=== PATIENT | male | born 1985 | race Caucasian/White ===

== ENCOUNTER 2022-02-12 09:06 | Oncology outpatient (recurring) (ONCR) | payer BC, SELFPAY ==
--- NOTE | 2022-01-28 10:12 | N.ONRAD NP_ITS ---
Radiation Oncology Consultation Patient Name: Gautam Elise Date of : 1985 Date of Service: 01/28/2022 Attending Physician: Misael Wilson M.D. Gautam Elise was seen in consultation this afternoon at the request of Dennis Barrios M.D. for evaluation regarding post-operative radiotherapy for the management of a recently diagnosed tongue cancer. The patient was evaluated by Russell Fonseca M.D. at [facility] for a right tongue lesion in November. The examination described an ulcerated lesion of the right aspect of the mobile tongue and palpable right cervical lymph nodes. An MRI of the head and neck obtained on November 17, 2021 reported a 2.7 cm x 1.5 cm x 3.1 cm mass within the right anterolateral aspect of the oral tongue, lateral level II lymph nodes, and a necrotic right level III lymph node. A biopsy of the tongue lesion diagnosed a squamous cell carcinoma. He was referred to [facility] Department of Otolaryngology for further management. A PET scan ordered on December 16, 2021 demonstrated FDG activity in the right lingual region, right anterior mandible, a 1.3 cm right submandibular node (SUV 9.5), and a right level V lymph node measuring 1.6 cm (SUV 10.4). There was no systemic, metastatic disease. A right partial glossectomy with bilateral neck dissection, left ALT flap, and tracheostomy was performed on December 23, 2021 by Dennis Barrios M.D. The pathology report (requested from the outside hospital and personally reviewed in [facility]) documented a 4.5 cm, invasive, grade 2, keratinizing, squamous cell carcinoma with a depth of invasion of 2.1 mm. All surgical margins were negative (anteromedial margin was less than 1 mm). Perineural invasion was identified. A total of 31 lymph nodes were harvested. Metastatic disease was present in two right level II lymph nodes, two of the right level III lymph nodes, and two within the right level IV lymph nodes. The largest lymph node measured 3.5 cm with extranodal extension present (right level IV). Extranodal extension was also displayed in the 2.5 cm right level II lymph node. He was evaluated for post-operative radiotherapy. I discussed with Mr. Elise the [place] [employer]aging for oral cancer and the patient's pathological stage IVB (T4aN3b) specific to his diagnosis. I reviewed The National Comprehensive Cancer Network Guidelines for adjuvant chemoradiotherapy in patients with newly resected tumors and adverse features (i.e. positive margins or extranodal extension). I also summarized the classic studies - the EORTC 54887 and RTOG 9501 trials - that established this recommendation. The EORTC investigation demonstrated an overall survival advantage and improved locoregional control in the combined modality arm, while the RTOG study documented improved disease-free survival and locoregional control in a subgroup of patients with positive margins and extranodal extension. I have requested a dental evaluation. I would endorse a 6 1/2-week course of radiation therapy. Prior to beginning treatment, a radiotherapy planning CT scan with contrast will be acquired to delineate the clinical target volumes. I I reviewed the potential toxicities of head and neck radiotherapy. The patient has verbalized understanding and would like to proceed as advocated. Patient's medical case was discussed with Swapnil Jerome M.D. Signed by: Dr. Misael Wilson 01/28/2022 10:10:58 AM
--- NOTE | 2022-02-02 | CT_ITS ---
Radiation Therapy Planning CT images; total exam DLP: 711.85 mGy-cm MTDD
--- NOTE | 2022-02-02 14:26 | ONCRAD EPV_ITS ---
Radiation Oncology Established Patient Visit Patient: Gautam Elise [id number] : 1985 Age: 36 Sex: Male Dictated by: Dr. Kenrick Rainey Date of Service: 02/02/2022 Referring Physician(s) : Dr. Swapnil Jerome Diagnosis: Oral cavity, anterior two thirds of the tongue, right, squamous cell carcinoma Radiotherapy to Date: None Current History: Mr. Elise is recovering well from surgery. His tracheostomy tube is out. He maintains his feeding tube, but is doing well maintaining his nutrition without using the tube. He denies difficulty swallowing. His speech is not completely clear related to the anatomic limitations of the tongue. He is not having a significant level of pain. He has swelling in the submental area. He has no complaints regarding teeth. He has no complaints in regard to his feeding tube. The graft on the floor of his mouth and tongue is numb. He denies pain in the area. Current Medications: Acetaminophen. Allergies: No Known Allergies Current Complaints / Review of Systems: . Vital Signs: Performed on 02/02/2022 1:04 PM BMI - 25.922 kg/m2 (high), Height - 66 in, Weight - 160.6 lbs, Temperature - 98.1 f, Pulse - 67 /min, Respiration - 18 /min, O2 Sat - 100 %, Pain - 0, Fatigue - 2 and BP - 121/ 76 mm(hg). Physical Exam: General: Alert and oriented x 3. No acute distress. HEENT: Normocephalic, atraumatic. He has symmetric submental edema. There is no evidence of inflammation. The surgical incision on the neck that is horseshoe shaped is well-healed. Tracheostomy site in the neck is well-healed. Oral cavity exam reveals no active lesions. The graft involving the tongue appears healthy. Laterally it has an irregular contour and slightly overlaps the lower molars. No irritation from the teeth seen. Inspection and palpation of the graft does not reveal any evidence of recurrence. There is no tenderness. No evidence of infection. Floor of mouth has no lesions. No lesions elsewhere in the oral cavity. Teeth are in good repair. NECK: Supple without supraclavicular or jugular lymphadenopathy NEUROLOGIC: Cranial nerves II ???XII are grossly intact. Normal sensation, strength 5/5 in all extremities, normal gait, no ataxia. Performance Status: ECOG 1 Lab: None pending. Pathology: Margins negative but very close anteriorly on the tongue. Multiple positive nodes in the right neck. Imaging: See HPI Impression: Locally advanced carcinoma of the tongue with deep invasion and multiple positive nodes on the right. Mr. Elise is a candidate for postoperative chemo RT. I reviewed the acute side effects of treatment. I told him he is at risk for permanent lymphedema problems. I told him he may need lymphedema therapy. Also discussed he may need physical therapy for stiffness of his neck. I discussed that he will need to see a dentist on a regular basis and exercise meticulous dental hygiene himself. Signed by: 02/02/2022 2:24:27 PM <<Signature on File>> Time spent with patient: CPT Code: CPT Code:
[2022-02-08 08:38] VITALS: BMI 26.3
[2022-02-08 08:54] LABS: Basophils % 0.7 %; Eosinophils # 0.2 10^3/uL (0.0-0.8); Hematocrit 45.1 % (42.0-52.0); Hemoglobin 14.7 g/dL (11.7-16.6); Lymphocytes # 1.3 10^3/uL (0.8-4.8); Lymphocytes % 23.7 %; Mean Corpuscular HGB Conc 32.6 g/dL (30.0-36.0); Mean Corpuscular Hemoglobin 31.6 pg (28.0-34.0); Monocytes # 0.5 10^3/uL (0.2-0.9); Monocytes % 8.3 %; Neutrophils # 3.46 10^3/uL (1.8-7.7); Neutrophils % 64.1 %; Nucleated Red Blood Cells % 0 %; Platelet Count 281 10^3/cmm (130-400); Red Blood Count 4.65 10^6/uL (4.1-5.3); Red Cell Distribution Width 11.7 % (12.1-15.1); White Blood Count 5.4 10^3/uL (4.0-10.0)
[2022-02-08 09:22] LABS: Alanine Aminotransferase 26 U/L (0-41); Albumin Level 4.4 g/dL (3.5-5.2); Alkaline Phosphatase 113 IU/L (40-130); Anion Gap 12.2 (5-19); Aspartate Amino Transferase 25 U/L (0-40); Blood Urea Nitrogen 11 mg/dL (6-20); Calcium 9.2 mg/dL (8.5-10.5); Carbon Dioxide 28 mmol/L (22-29); Chloride 104 mmol/L (98-107); Globulin 2.8 g/dL (1.3-4.6); Glomerular Filtration Rate 188.1 mL/min (90-130); Glucose 79 mg/dL (65-115); Osmolality Calculated 288 mOsm/kg (285-295); Potassium 4.2 mmol/L (3.5-5.1); Sodium 140 mmol/L (136-145); Total Bilirubin 0.2 mg/dL (0.15-1.2); Total Protein 7.2 g/dL (6.6-8.7)
[2022-02-08] MEDS: sodium chloride 0.9% 250 ML 75 ML IV (10:42)
[2022-02-08] MEDS: OLANZapine 5 mg TABLET PO (12:43)
[2022-02-08] MEDS: diphenhydrAMINE 50 mg/mL SDV 1mL 25 MG IVP ×2 (12:44→18:22)
[2022-02-08] MEDS: famotidine 20 mg/2 mL INJ IVP (12:45)
[2022-02-08] MEDS: fosaprepitant 150 MG in sodium chloride 0.9% 150 ML 300 MG IV (13:23)
[2022-02-08] MEDS: FUROsemide 10 mg/mL SDV 2mL 20 MG IVP (15:24)
[2022-02-08] MEDS: potassium chloride 20 MEQ in sodium chloride 0.9% 500 ML 325 MEQ IV (15:33)
[2022-02-08 17:12] VITALS: BP 105/73; PULSE 75; RESP 18; TEMP 35.9; O2SAT 96
[2022-02-08] MEDS: promethazine 25 mg Supp PR (17:35)
[2022-02-08] MEDS: OLANZapine 10 mg ODT PO (18:16)
[2022-02-08] MEDS: dexamethasone 10 mg/mL INJ IVP (18:20)
--- NOTE | 2022-02-09 16:17 | ONCRAD TMN_ITS ---
Radiation Oncology Weekly Treatment Management Patient: Gosia Florez MR#: [id number] : 1985 Attending Physician: Dr. Modesto Rainey Date of Service: 02/09/2022 Referring Physician(s) : Dennis Barrios M.D Diagnosis: C02.1 - Malignant neoplasm of border of tongue, Diagnosed 12/23/2021 (Active) Radiotherapy to date: Course: [facility], Treatment Site: [facility] [place], Ref. ID: [id number], Energy: 6X, Dose/Fx (cGy): 200, #Fx: 2 / 33, Dose Correction (cGy): 0, Total Dose (cGy): 400, Start Date: 02/08/2022, Elapsed Days: 1 Reason for visit: The patient is being seen today as part of their regularly scheduled weekly on treatment visits to assess for acute toxicities from radiotherapy. Review of Systems: Vital Signs: Performed on 02/09/2022 3:49 PM BMI - 25.663 kg/m2 (high), Height - 66 in, Weight - 159 lbs, Temperature - 98 f, Pulse - 85 /min, Respiration - 20 /min, O2 Sat - 100 %, Pain - 0, Fatigue - 0 and BP - 116/ 70 mm(hg). Physical Exam: Imaging: Radiation therapy imaging related to accurate target localization (i.e. KV, MV and CBCT) was reviewed. Appropriate changes, if any, were made to ensure treatment accuracy. Plan: Signed by: Dr. Modesto Rainey 02/09/2022 4:16:31 PM
== END 2022-02-14 23:59 | disposition home or self-care (01) ==
PROVIDERS: Internal Medicine Medical Oncology; PCP Nurse Practitioner; Visit Provider Specialist
DX: Z51.0 Encounter for antineoplastic radiation therapy (principal); C02.3 Malignant neoplasm of anterior two-thirds of tongue, part unspecified
CPT/HCPCS: 77334; 77386; 77470; 80053; 85025; 96366; 96367; 96375; 96413; 99205; J1100; J1200; J1453; J1940; J3475; J3480; J3490; J7030; J7040; J7050; J8498; J9060

== ENCOUNTER 2022-03-17 15:13 | Oncology outpatient (recurring) (ONCR) | payer BC, SELFPAY ==
[2022-02-15 16:10] LABS: Basophils % 0.1 %; Eosinophils % 0.6 %; Hematocrit 44.2 % (42.0-52.0); Hemoglobin 15.4 g/dL (11.7-16.6); Lymphocytes # 0.9 10^3/uL (0.8-4.8); Lymphocytes % 12.8 %; Mean Corpuscular HGB Conc 34.8 g/dL (30.0-36.0); Mean Corpuscular Volume 91.9 fl (80-94); Mean Platelet Volume 9.6 fL (7.4-10.4); Monocytes # 0.4 10^3/uL (0.2-0.9); Neutrophils # 5.72 10^3/uL (1.8-7.7); Neutrophils % 79.9 %; Nucleated Red Blood Cells % 0 %; Platelet Count 285 10^3/cmm (130-400); Red Blood Count 4.81 10^6/uL (4.1-5.3); Red Cell Distribution Width 11.1 % (12.1-15.1); White Blood Count 7.2 10^3/uL (4.0-10.0)
[2022-02-15 16:36] LABS: Alanine Aminotransferase 62 U/L (0-41); Alkaline Phosphatase 94 IU/L (40-130); Anion Gap 12.7 (5-19); Aspartate Amino Transferase 24 U/L (0-40); Blood Urea Nitrogen 12 mg/dL (6-20); Calcium 9.3 mg/dL (8.5-10.5); Carbon Dioxide 28 mmol/L (22-29); Chloride 102 mmol/L (98-107); Globulin 2.9 g/dL (1.3-4.6); Glomerular Filtration Rate 127.6 mL/min (90-130); Glucose 92 mg/dL (65-115); Osmolality Calculated 287 mOsm/kg (285-295); Potassium 3.7 mmol/L (3.5-5.1); Sodium 139 mmol/L (136-145); Total Bilirubin 0.3 mg/dL (0.15-1.2); Total Protein 6.9 g/dL (6.6-8.7)
--- NOTE | 2022-02-16 16:11 | ONCRAD TMN_ITS ---
Radiation Oncology Treatment Management Note Patient Name: Gautam Elise Date of : 1985 Date of Service: 02/16/2022 Attending Physician: Misael Wilson M.D. Gautam Elise is a 36 year old white male diagnosed with a pathological stage IVB (T4aN3b) tongue cancer. The patient was evaluated by Russell Fonseca M.D. at [facility] for a right tongue lesion in November. The examination described an ulcerated lesion of the right aspect of the mobile tongue and palpable right cervical lymph nodes. An MRI of the head and neck obtained on November 17, 2021 reported a 2.7 cm x 1.5 cm x 3.1 cm mass within the right anterolateral aspect of the oral tongue, lateral level II lymph nodes, and a necrotic right level III lymph node. A biopsy of the tongue lesion diagnosed a squamous cell carcinoma. He was referred to [facility] Department of Otolaryngology for further management. A PET scan ordered on December 16, 2021 demonstrated FDG activity in the right lingual region, right anterior mandible, a 1.3 cm right submandibular node (SUV 9.5), and a right level V lymph node measuring 1.6 cm (SUV 10.4). There was no systemic, metastatic disease. A right partial glossectomy with bilateral neck dissection, left ALT flap, and tracheostomy was performed on December 23, 2021 by Dennis Barrios M.D. The pathology report documented a 4.5 cm, invasive, grade 2 keratinizing squamous cell carcinoma with a depth of invasion of 2.1 mm. All surgical margins were negative (anteromedial margin was less than 1 mm). Perineural invasion was identified. A total of 31 lymph nodes were harvested. Metastatic disease was present in two right level II lymph nodes, two of the right level III lymph nodes, and two within the right level IV lymph nodes. The largest lymph node measured 3.5 cm with extranodal extension present (right level IV). Extranodal extension was also displayed in the 2.5 cm right level II lymph node. The patient has received 14 Gy of a prescribed 66 Pickard with an intensity modulated radiotherapy plan utilizing a step and shoot treatment technique. He has been prescribed cisplatin (100 mg/m2) every three weeks during radiotherapy. Upon review of systems, he reported mild xerostomia and ageusia. On physical examination, the patient weighed 154 lbs. His temperature was 98.4 ???F and the blood pressure was 127/83 mmHg. His pulse was 60 bpm and the respiratory rate was 18. There was no erythema within the treatment pugh. Continue post-operative head and neck radiotherapy as prescribed. Signed by: Dr. Misael Wilson 02/16/2022 4:10:53 PM
[2022-02-22 16:27] LABS: Basophils % 0.4 %; Eosinophils % 0.2 %; Hematocrit 42.3 % (42.0-52.0); Hemoglobin 14.2 g/dL (11.7-16.6); Lymphocytes # 0.5 10^3/uL (0.8-4.8); Lymphocytes % 9.7 %; Mean Corpuscular HGB Conc 33.6 g/dL (30.0-36.0); Mean Corpuscular Hemoglobin 31.1 pg (28.0-34.0); Mean Corpuscular Volume 92.6 fl (80-94); Mean Platelet Volume 9.4 fL (7.4-10.4); Monocytes # 0.4 10^3/uL (0.2-0.9); Monocytes % 8.2 %; Neutrophils # 4.33 10^3/uL (1.8-7.7); Neutrophils % 81.1 %; Nucleated Red Blood Cells % 0 %; Platelet Count 201 10^3/cmm (130-400); Red Blood Count 4.57 10^6/uL (4.1-5.3); Red Cell Distribution Width 11.2 % (12.1-15.1); White Blood Count 5.3 10^3/uL (4.0-10.0)
[2022-02-22 17:27] LABS: Alanine Aminotransferase 32 U/L (0-41); Albumin Level 4.4 g/dL (3.5-5.2); Alkaline Phosphatase 111 IU/L (40-130); Anion Gap 14.3 (5-19); Aspartate Amino Transferase 25 U/L (0-40); Blood Urea Nitrogen 13 mg/dL (6-20); Calcium 9.9 mg/dL (8.5-10.5); Carbon Dioxide 29 mmol/L (22-29); Chloride 101 mmol/L (98-107); Globulin 2.9 g/dL (1.3-4.6); Glomerular Filtration Rate 152.4 mL/min (90-130); Glucose 105 mg/dL (65-115); Osmolality Calculated 290 mOsm/kg (285-295); Potassium 4.3 mmol/L (3.5-5.1); Sodium 140 mmol/L (136-145); Total Bilirubin 0.4 mg/dL (0.15-1.2); Total Protein 7.3 g/dL (6.6-8.7)
--- NOTE | 2022-02-23 16:07 | ONCRAD TMN_ITS ---
Radiation Oncology Treatment Management Note Patient Name: Gautam Elise Date of : 1985 Date of Service: 02/23/2022 Attending Physician: Misale Wilson M.D. Gautam Elise is a 36 year old white male diagnosed with a pathological stage IVB (T4aN3b) tongue cancer. The patient was evaluated by Russell Fonseca M.D. at [facility] for a right tongue lesion in November. The examination described an ulcerated lesion of the right aspect of the mobile tongue and palpable right cervical lymph nodes. An MRI of the head and neck obtained on November 17, 2021 reported a 2.7 cm x 1.5 cm x 3.1 cm mass within the right anterolateral aspect of the oral tongue, lateral level II lymph nodes, and a necrotic right level III lymph node. A biopsy of the tongue lesion diagnosed a squamous cell carcinoma. He was referred to [facility] Department of Otolaryngology for further management. A PET scan ordered on December 16, 2021 demonstrated FDG activity in the right lingual region, right anterior mandible, a 1.3 cm right submandibular node (SUV 9.5), and a right level V lymph node measuring 1.6 cm (SUV 10.4). There was no systemic, metastatic disease. A right partial glossectomy with bilateral neck dissection, left ALT flap, and tracheostomy was performed on December 23, 2021 by Dennis Barrios M.D. The pathology report documented a 4.5 cm, invasive, grade 2 keratinizing squamous cell carcinoma with a depth of invasion of 2.1 mm. All surgical margins were negative (anteromedial margin was less than 1 mm). Perineural invasion was identified. A total of 31 lymph nodes were harvested. Metastatic disease was present in two right level II lymph nodes, two of the right level III lymph nodes, and two within the right level IV lymph nodes. The largest lymph node measured 3.5 cm with extranodal extension present (right level IV). Extranodal extension was also displayed in the 2.5 cm right level II lymph node. The patient has received 24 Gy of a prescribed 66 Pickard with an intensity modulated radiotherapy plan utilizing a step and shoot treatment technique. He has been prescribed cisplatin (100 mg/m2) every three weeks during radiotherapy. Upon review of systems, he described odynophagia and ageusia. On physical examination, the patient weighed 152 lbs. His temperature was 98.2 ???F and the blood pressure was 124/85 mmHg. His pulse was 92 bpm and the respiratory rate was 16. There was no erythema within the treatment pugh. Continue post-operative head and neck radiotherapy as planned. I will prescribe oxycodone elixir for pain. Signed by: Dr. Misael Wilson 02/23/2022 4:05:28 PM
[2022-03-01 08:41] VITALS: BMI 24.3
[2022-03-01 08:42] LABS: Basophils % 0.5 %; Eosinophils % 1.4 %; Hematocrit 41.1 % (42.0-52.0); Hemoglobin 13.7 g/dL (11.7-16.6); Lymphocytes # 0.5 10^3/uL (0.8-4.8); Lymphocytes % 21.4 %; Mean Corpuscular HGB Conc 33.3 g/dL (30.0-36.0); Mean Corpuscular Hemoglobin 31.1 pg (28.0-34.0); Mean Corpuscular Volume 93.4 fl (80-94); Mean Platelet Volume 9.3 fL (7.4-10.4); Monocytes # 0.2 10^3/uL (0.2-0.9); Monocytes % 8.8 %; Neutrophils # 1.46 10^3/uL (1.8-7.7); Neutrophils % 67.9 %; Nucleated Red Blood Cells % 0 %; Platelet Count 167 10^3/cmm (130-400); Red Cell Distribution Width 11.1 % (12.1-15.1); White Blood Count 2.2 10^3/uL (4.0-10.0)
[2022-03-01 09:13] LABS: Alanine Aminotransferase 25 U/L (0-41); Albumin Level 4.1 g/dL (3.5-5.2); Alkaline Phosphatase 99 IU/L (40-130); Anion Gap 13.9 (5-19); Aspartate Amino Transferase 24 U/L (0-40); Blood Urea Nitrogen 7 mg/dL (6-20); Calcium 9.3 mg/dL (8.5-10.5); Carbon Dioxide 28 mmol/L (22-29); Chloride 103 mmol/L (98-107); Globulin 2.8 g/dL (1.3-4.6); Glomerular Filtration Rate 152.4 mL/min (90-130); Glucose 77 mg/dL (65-115); Osmolality Calculated 289 mOsm/kg (285-295); Potassium 3.9 mmol/L (3.5-5.1); Sodium 141 mmol/L (136-145); Total Bilirubin 0.2 mg/dL (0.15-1.2); Total Protein 6.9 g/dL (6.6-8.7)
--- NOTE | 2022-03-02 16:06 | ONCRAD TMN_ITS ---
Radiation Oncology Treatment Management Note Patient Name: Gautam Elise Date of : 1985 Date of Service: 03/02/2022 Attending Physician: Misael Wilson M.D. Gautam Elise is a 36 year old white male diagnosed with a pathological stage IVB (T4aN3b) tongue cancer. The patient was evaluated by Russell Fonseca M.D. at [facility] for a right tongue lesion in November. The examination described an ulcerated lesion of the right aspect of the mobile tongue and palpable right cervical lymph nodes. An MRI of the head and neck obtained on November 17, 2021 reported a 2.7 cm x 1.5 cm x 3.1 cm mass within the right anterolateral aspect of the oral tongue, lateral level II lymph nodes, and a necrotic right level III lymph node. A biopsy of the tongue lesion diagnosed a squamous cell carcinoma. He was referred to [facility] Department of Otolaryngology for further management. A PET scan ordered on December 16, 2021 demonstrated FDG activity in the right lingual region, right anterior mandible, a 1.3 cm right submandibular node (SUV 9.5), and a right level V lymph node measuring 1.6 cm (SUV 10.4). There was no systemic, metastatic disease. A right partial glossectomy with bilateral neck dissection, left ALT flap, and tracheostomy was performed on December 23, 2021 by Dennis Barrios M.D. The pathology report documented a 4.5 cm, invasive, grade 2 keratinizing squamous cell carcinoma with a depth of invasion of 2.1 mm. All surgical margins were negative (anteromedial margin was less than 1 mm). Perineural invasion was identified. A total of 31 lymph nodes were harvested. Metastatic disease was present in two right level II lymph nodes, two of the right level III lymph nodes, and two within the right level IV lymph nodes. The largest lymph node measured 3.5 cm with extranodal extension present (right level IV). Extranodal extension was also displayed in the 2.5 cm right level II lymph node. The patient has received 34 Gy of a prescribed 66 Pickard with an intensity modulated radiotherapy plan utilizing a step and shoot treatment technique. He has been prescribed cisplatin (100 mg/m2) every three weeks during radiotherapy. Upon review of systems, he reported the odynophagia has improved with medication. On physical examination, the patient weighed 152 lbs. His temperature was 98.2 ???F and the blood pressure was 124/85 mmHg. His pulse was 92 bpm and the respiratory rate was 16. There was no erythema within the treatment pugh. Continue post-operative head and neck radiotherapy as prescribed. Signed by: Dr. Misael Wilson 03/02/2022 4:04:19 PM
[2022-03-08 08:15] VITALS: BMI 23.6
[2022-03-08 08:19] LABS: Basophils % 0.7 %; Eosinophils # 0.1 10^3/uL (0.0-0.8); Eosinophils % 2.1 %; Hematocrit 44.6 % (42.0-52.0); Hemoglobin 15.2 g/dL (11.7-16.6); Lymphocytes # 0.4 10^3/uL (0.8-4.8); Lymphocytes % 14.6 %; Mean Corpuscular HGB Conc 34.1 g/dL (30.0-36.0); Mean Corpuscular Hemoglobin 31.3 pg (28.0-34.0); Mean Corpuscular Volume 91.8 fl (80-94); Mean Platelet Volume 9.5 fL (7.4-10.4); Monocytes # 0.4 10^3/uL (0.2-0.9); Monocytes % 14.6 %; Neutrophils # 1.95 10^3/uL (1.8-7.7); Nucleated Red Blood Cells % 0 %; Platelet Count 205 10^3/cmm (130-400); Red Blood Count 4.86 10^6/uL (4.1-5.3); Red Cell Distribution Width 11.5 % (12.1-15.1); White Blood Count 2.9 10^3/uL (4.0-10.0)
[2022-03-08 08:41] LABS: Alanine Aminotransferase 29 U/L (0-41); Albumin Level 4.8 g/dL (3.5-5.2); Alkaline Phosphatase 110 U/L (40-130); Anion Gap 14.7 (5-19); Aspartate Amino Transferase 32 U/L (0-40); Blood Urea Nitrogen 14 mg/dL (6-20); Calcium 10.4 mg/dL (8.5-10.5); Carbon Dioxide 29 mmol/L (22-29); Chloride 101 mmol/L (98-107); Glomerular Filtration Rate 152.4 mL/min (90-130); Glucose 52 mg/dL (65-115); Osmolality Calculated 290 mOsm/kg (285-295); Potassium 3.7 mmol/L (3.5-5.1); Sodium 141 mmol/L (136-145); Total Bilirubin 0.3 mg/dL (0.15-1.2); Total Protein 7.8 g/dL (6.6-8.7)
[2022-03-08] MEDS: acetaminophen 325 mg Tablet 650 MG PO (09:59)
[2022-03-08] MEDS: OLANZapine 5 mg TABLET PO (09:59)
[2022-03-08] MEDS: palonosetron 0.25 mg/5 mL SDV IVP (12:25)
[2022-03-08] MEDS: famotidine 20 mg/2 mL INJ IVP (12:25)
[2022-03-08] MEDS: sodium chloride 0.9% 250 ML 75 ML IV (12:25)
[2022-03-08] MEDS: diphenhydrAMINE 50 mg/mL SDV 1mL 25 MG IVP (12:33)
[2022-03-08] MEDS: fosaprepitant 150 MG in sodium chloride 0.9% 150 ML 300 MG IV (12:34)
[2022-03-08] MEDS: FUROsemide 10 mg/mL SDV 2mL 20 MG IVP (15:27)
[2022-03-08] MEDS: potassium chloride 20 MEQ in sodium chloride 0.9% 500 ML 500 MEQ IV (15:33)
[2022-03-08 16:40] VITALS: BP 113/74; PULSE 49; RESP 16; TEMP 35.8; O2SAT 99
--- NOTE | 2022-03-09 16:03 | ONCRAD TMN_ITS ---
Radiation Oncology Treatment Management Note Patient Name: Gautam Elise Date of : 1985 Date of Service: 03/09/2022 Attending Physician: Misael Wilson M.D. Gautam Elise is a 36 year old white male diagnosed with a pathological stage IVB (T4aN3b) tongue cancer. The patient was evaluated by Russell Fonseca M.D. at [facility] for a right tongue lesion in November. The examination described an ulcerated lesion of the right aspect of the mobile tongue and palpable right cervical lymph nodes. An MRI of the head and neck obtained on November 17, 2021 reported a 2.7 cm x 1.5 cm x 3.1 cm mass within the right anterolateral aspect of the oral tongue, lateral level II lymph nodes, and a necrotic right level III lymph node. A biopsy of the tongue lesion diagnosed a squamous cell carcinoma. He was referred to [facility] Department of Otolaryngology for further management. A PET scan ordered on December 16, 2021 demonstrated FDG activity in the right lingual region, right anterior mandible, a 1.3 cm right submandibular node (SUV 9.5), and a right level V lymph node measuring 1.6 cm (SUV 10.4). There was no systemic, metastatic disease. A right partial glossectomy with bilateral neck dissection, left ALT flap, and tracheostomy was performed on December 23, 2021 by Dennis Barrios M.D. The pathology report documented a 4.5 cm, invasive, grade 2 keratinizing squamous cell carcinoma with a depth of invasion of 2.1 mm. All surgical margins were negative (anteromedial margin was less than 1 mm). Perineural invasion was identified. A total of 31 lymph nodes were harvested. Metastatic disease was present in two right level II lymph nodes, two of the right level III lymph nodes, and two within the right level IV lymph nodes. The largest lymph node measured 3.5 cm with extranodal extension present (right level IV). Extranodal extension was also displayed in the 2.5 cm right level II lymph node. The patient has received 44 Gy of a prescribed 66 Pickard with an intensity modulated radiotherapy plan utilizing a step and shoot treatment technique. He has been prescribed cisplatin (100 mg/m2) every three weeks during radiotherapy. Upon review of systems, he denied any new complaints. On physical examination, the patient weighed 148 lbs. His temperature was 98.5 ???F and the blood pressure was 108/64 mmHg. His pulse was 73 bpm and the respiratory rate was 16. There was no erythema within the treatment pugh. Continue post-operative head and neck radiotherapy as planned. Begin PEG tube feedings. Signed by: Dr. Misael Wilson 03/09/2022 4:02:19 PM
[2022-03-15] MEDS: sodium chloride 0.9% 500 ML 999 ML IV (15:54)
[2022-03-15 16:08] LABS: Basophils % 0.7 %; Hematocrit 44.6 % (42.0-52.0); Hemoglobin 15.3 g/dL (11.7-16.6); Lymphocytes # 0.3 10^3/uL (0.8-4.8); Lymphocytes % 6.5 %; Mean Corpuscular HGB Conc 34.3 g/dL (30.0-36.0); Mean Corpuscular Volume 90.5 fl (80-94); Mean Platelet Volume 10.4 fL (7.4-10.4); Monocytes # 0.4 10^3/uL (0.2-0.9); Monocytes % 8.4 %; Neutrophils % 84.2 %; Nucleated Red Blood Cells % 0 %; Platelet Count 190 10^3/cmm (130-400); Red Blood Count 4.93 10^6/uL (4.1-5.3); Red Cell Distribution Width 11.5 % (12.1-15.1); White Blood Count 4.2 10^3/uL (4.0-10.0)
[2022-03-15 16:36] VITALS: BP 111/69; PULSE 54; RESP 16; TEMP 36.4; O2SAT 100
[2022-03-15 18:11] LABS: Alanine Aminotransferase 37 U/L (0-41); Albumin Level 4.2 g/dL (3.5-5.2); Alkaline Phosphatase 91 U/L (40-130); Anion Gap 15.4 (5-19); Aspartate Amino Transferase 23 U/L (0-40); Blood Urea Nitrogen 18 mg/dL (6-20); Calcium 9.2 mg/dL (8.5-10.5); Carbon Dioxide 28 mmol/L (22-29); Chloride 99 mmol/L (98-107); Globulin 2.4 g/dL (1.3-4.6); Glomerular Filtration Rate 127.6 mL/min (90-130); Glucose 91 mg/dL (65-115); Osmolality Calculated 287 mOsm/kg (285-295); Potassium 4.4 mmol/L (3.5-5.1); Sodium 138 mmol/L (136-145); Total Bilirubin 0.3 mg/dL (0.15-1.2); Total Protein 6.6 g/dL (6.6-8.7)
[2022-03-16 15:21] VITALS: BP 117/74; PULSE 55; RESP 16; TEMP 36.3; O2SAT 98
[2022-03-16] MEDS: sodium chloride 0.9% 500 ML 999 ML IV (15:25)
[2022-03-16] MEDS: ondansetron 2 mg/ML SDV 2 mL 8 MG IV (15:26)
--- NOTE | 2022-03-16 16:08 | ONCRAD TMN_ITS ---
Radiation Oncology Weekly Treatment Management Patient: Gosia Hyatt MR#: [id number] : 1985> Attending Physician: Dr. Modesto Rainey Date of Service: 03/16/2022 Referring Physician(s) : Dr. Swapnil Jerome Diagnosis: C02.1 - Malignant neoplasm of border of tongue, Diagnosed 12/23/2021 (Active) Radiotherapy to date: Course: [facility], Treatment Site: [facility], Ref. ID: [id number], Energy: 6X, Dose/Fx (cGy): 200, #Fx: / , Dose Correction (cGy): 0, Total Dose (cGy): 5,400, Start Date: 02/08/2022, Elapsed Days: 36 Reason for visit: The patient is being seen today as part of their regularly scheduled weekly on treatment visits to assess for acute toxicities from radiotherapy. Review of Systems: He has had 27 and 33 treatments. He has had 2 cycles of high-dose cisplatin, which she has tolerated moderately well. He is receiving IV fluids and medications today. He has a good performance status. Voice quality is good. He has minimal oral cavity pain. Taste is bad for everything. He states that dry mouth has been minimal so far. He is using of the feeding tube more because of the loss of taste. However he is still taking fluids and medication by mouth. Vital Signs: Physical Exam: Alert, oriented, no distress. He has moderate mucositis in the oral cavity. No yeast or viral ulcerations. Dentition stable. Neck is free of lymphadenopathy. He has a moderate skin reaction over the right lower neck. Imaging: Radiation therapy imaging related to accurate target localization (i.e. KV, MV and CBCT) was reviewed. Appropriate changes, if any, were made to ensure treatment accuracy. Plan: Continue treatment per plan. Discussed that he needs to continue swallowing liquids over the short-term so that his swallowing mechanism remains intact. Discussed that he will need to see his dentist within 2 to 3 months of finishing radiation. Discussed the timing of resolution of mucositis, loss of taste, and xerostomia. Signed by: Dr. Modesto Rainey 03/16/2022 4:06:53 PM
== END 2022-03-17 23:59 | disposition home or self-care (01) ==
PROVIDERS: Internal Medicine Medical Oncology; Radiology Radiation Oncology; PCP Nurse Practitioner; Visit Provider Specialist
DX: Z51.0 Encounter for antineoplastic radiation therapy (principal); C02.3 Malignant neoplasm of anterior two-thirds of tongue, part unspecified
CPT/HCPCS: 36415; 77336; 77386; 80053; 85025; 96365; 96366; 96367; 96375; 96413; 96415; J1100; J1200; J1453; J1940; J2405; J2469; J3475; J3480; J3490; J7030; J7040; J7050; J9060

== ENCOUNTER 2022-03-30 08:00 | Oncology outpatient (recurring) (ONCR) | payer BC, SELFPAY ==
--- NOTE | 2022-03-23 15:28 | ONCRAD TMN_ITS ---
Radiation Oncology Treatment Management Note Patient Name: Gautam Elise Date of : 1985 Date of Service: 03/23/2022 Attending Physician: Misael Wilson M.D. Gautam Elise is a 36 year old white male diagnosed with a pathological stage IVB (T4aN3b) tongue cancer. The patient was evaluated by Russell Fonseca M.D. at [facility] for a right tongue lesion in November. The examination described an ulcerated lesion of the right aspect of the mobile tongue and palpable right cervical lymph nodes. An MRI of the head and neck obtained on November 17, 2021 reported a 2.7 cm x 1.5 cm x 3.1 cm mass within the right anterolateral aspect of the oral tongue, lateral level II lymph nodes, and a necrotic right level III lymph node. A biopsy of the tongue lesion diagnosed a squamous cell carcinoma. He was referred to [facility] Department of Otolaryngology for further management. A PET scan ordered on December 16, 2021 demonstrated FDG activity in the right lingual region, right anterior mandible, a 1.3 cm right submandibular node (SUV 9.5), and a right level V lymph node measuring 1.6 cm (SUV 10.4). There was no systemic, metastatic disease. A right partial glossectomy with bilateral neck dissection, left ALT flap, and tracheostomy was performed on December 23, 2021 by Dennis Barrios M.D. The pathology report documented a 4.5 cm, invasive, grade 2 keratinizing squamous cell carcinoma with a depth of invasion of 2.1 mm. All surgical margins were negative (anteromedial margin was less than 1 mm). Perineural invasion was identified. A total of 31 lymph nodes were harvested. Metastatic disease was present in two right level II lymph nodes, two of the right level III lymph nodes, and two within the right level IV lymph nodes. The largest lymph node measured 3.5 cm with extranodal extension present (right level IV). Extranodal extension was also displayed in the 2.5 cm right level II lymph node. The patient has received 60 Gy of a prescribed 66 Pickard with an intensity modulated radiotherapy plan utilizing a step and shoot treatment technique. He has been prescribed cisplatin (100 mg/m2) every three weeks during radiotherapy. Upon review of systems, he continues to describe dysgeusia. On physical examination, the patient weighed 148 lbs. His temperature was 98.5 ???F and the blood pressure was 108/64 mmHg. His pulse was 73 bpm and the respiratory rate was 16. There was no erythema within the treatment pugh. Continue post-operative head and neck radiotherapy as prescribed. Signed by: Dr. Misael Wilson 03/23/2022 3:27:29 PM
--- NOTE | 2022-03-23 15:30 | ONCRAD TMN_ITS ---
Radiation Oncology Treatment Management Note Patient Name: Gautam Elise Date of : 1985 Date of Service: 03/23/2022 Attending Physician: Misael Wilson M.D. Gautam Elise is a 36 year old white male diagnosed with a pathological stage IVB (T4aN3b) tongue cancer. The patient was evaluated by Russell Fonseca M.D. at [facility] for a right tongue lesion in November. The examination described an ulcerated lesion of the right aspect of the mobile tongue and palpable right cervical lymph nodes. An MRI of the head and neck obtained on November 17, 2021 reported a 2.7 cm x 1.5 cm x 3.1 cm mass within the right anterolateral aspect of the oral tongue, lateral level II lymph nodes, and a necrotic right level III lymph node. A biopsy of the tongue lesion diagnosed a squamous cell carcinoma. He was referred to [facility] Department of Otolaryngology for further management. A PET scan ordered on December 16, 2021 demonstrated FDG activity in the right lingual region, right anterior mandible, a 1.3 cm right submandibular node (SUV 9.5), and a right level V lymph node measuring 1.6 cm (SUV 10.4). There was no systemic, metastatic disease. A right partial glossectomy with bilateral neck dissection, left ALT flap, and tracheostomy was performed on December 23, 2021 by Dennis Barrios M.D. The pathology report documented a 4.5 cm, invasive, grade 2 keratinizing squamous cell carcinoma with a depth of invasion of 2.1 mm. All surgical margins were negative (anteromedial margin was less than 1 mm). Perineural invasion was identified. A total of 31 lymph nodes were harvested. Metastatic disease was present in two right level II lymph nodes, two of the right level III lymph nodes, and two within the right level IV lymph nodes. The largest lymph node measured 3.5 cm with extranodal extension present (right level IV). Extranodal extension was also displayed in the 2.5 cm right level II lymph node. The patient has received 60 Gy of a prescribed 66 Pickard with an intensity modulated radiotherapy plan utilizing a step and shoot treatment technique. He has been prescribed cisplatin (100 mg/m2) every three weeks during radiotherapy. Upon review of systems, he continues to describe dysgeusia. On physical examination, the patient weighed 141 lbs. His temperature was 97.1 ???F and the blood pressure was 114/78 mmHg. His pulse was 55 bpm and the respiratory rate was 16. There was minimal erythema within the treatment pugh. Continue post-operative head and neck radiotherapy as prescribed. Signed by: Dr. Misael Wilson 03/23/2022 3:29:00 PM
--- NOTE | 2022-03-26 08:46 | N.ONRD TS_ITS ---
Radiation OncologyTreatment Summary Patient Name: Gautam Elise Date of : 1985 Date of Service: 03/26/2022 Attending Physician: Misael Wilson M.D. Gautam Elise has completed postoperative head and neck radiotherapy for the management of a pathological stage IVB (T4aN3b) tongue cancer. The patient was evaluated by Russell Fonseca M.D. at [facility] for a right tongue lesion in November. The examination described an ulcerated lesion of the right aspect of the mobile tongue and palpable right cervical lymph nodes. An MRI of the head and neck obtained on November 17, 2021 reported a 2.7 cm x 1.5 cm x 3.1 cm mass within the right anterolateral aspect of the oral tongue, lateral level II lymph nodes, and a necrotic right level III lymph node. A biopsy of the tongue lesion diagnosed a squamous cell carcinoma. He was referred to [facility] Department of Otolaryngology for further management. A PET scan ordered on December 16, 2021 demonstrated FDG activity in the right lingual region, right anterior mandible, a 1.3 cm right submandibular node (SUV 9.5), and a right level V lymph node measuring 1.6 cm (SUV 10.4). There was no systemic, metastatic disease. A right partial glossectomy with bilateral neck dissection, left ALT flap, and tracheostomy was performed on December 23, 2021 by Dennis Barrios M.D. The pathology report documented a 4.5 cm, invasive, grade 2 keratinizing squamous cell carcinoma with a depth of invasion of 2.1 mm. All surgical margins were negative (anteromedial margin was less than 1 mm). Perineural invasion was identified. A total of 31 lymph nodes were harvested. Metastatic disease was present in two right level II lymph nodes, two of the right level III lymph nodes, and two within the right level IV lymph nodes. The largest lymph node measured 3.5 cm with extranodal extension present (right level IV). Extranodal extension was also displayed in the 2.5 cm right level II lymph node. Head and neck radiation therapy was delivered between the dates of February 08, 2022 through March 26, 2022. A prescribed dose of 66 Gy was delivered in 33 fractions encompassing 47 elapsed days. The postoperative bed and bilateral cervical lymph node stations were treated utilizing an intensity modulated radiotherapy plan with a step and shoot treatment technique. The plan required nine gantry angles (0???, 41???, 82???, 123???, 164???, 196???, 237???, 278???, and 319???) replicating a an arc. The collimator angle was 0???. The field sizes spanned 16.8 cm x 16.8 cm to 20.8 cm x 17.5 cm. The SSDs measured a minimum of 88.3 cm to a maximum of 95.6 cm. The ports delivered 280 MU, 219 MU, 215 MU, 204 MU, 222 MU, 209 MU, 189 MU, 212 MU, and 290 MU corresponding to the gantry angles described. Low energy photons were prescribed. All treatments were performed with the Toutiao linear accelerator and an isocentric technique. The dose was calculated by Anisotropic Analytic Algorithm with the plan normalized to deliver 100% of the prescription dose to 95% of the planning target volume. He was prescribed cisplatin (100 mg/m2) every three weeks during radiotherapy (February 08 through March 08) under the supervision of Swapnil Jerome M.D. The plan was designed and approved by the [facility] physician. Signed by: Dr. Misael Wilson 03/26/2022 8:46:20 AM
== END 2022-04-16 23:59 | disposition home or self-care (01) ==
PROVIDERS: PCP Nurse Practitioner; Visit Provider Radiology Radiation Oncology
DX: Z53.9 Procedure and treatment not carried out, unspecified reason (principal)
CPT/HCPCS: 77336; 77386

== ENCOUNTER 2022-08-12 08:01 | Day surgery (SDC) | payer BC, SELFPAY ==
[2022-08-10 11:24] VITALS: BMI 24.5
[2022-08-12] VITALS (8 sets, daily range): BP systolic 118–134; BP diastolic 85–95; PULSE 67–107; RESP 16–18; TEMP 36.1–36.9; O2SAT 96–98
[2022-08-12] MEDS: sodium chloride 0.9% 1,000 ML 30 ML IV (08:40)
--- NOTE | 2022-08-12 09:20 | P.ANESASSM_ITS ---
Pre-Anesthetic Assessment Height/Weight: Height 1.68 m Weight 68.946 kg Temp Pulse Resp BP Pulse Ox O2 Del Method 97 F L 67 18 125/90 97 08/12/22 08:29 08/12/22 08:29 08/12/22 08:29 08/12/22 08:29 08/12/22 08:29 08/12/22 08:29 Operation Date: 08/12/22 10:00 Proposed Procedures p Portacath Placement 67259,C02.3(Not Applicable) - Mauri Silvestre DO Familial anesthetic complications: None Was Beta Cristo taken within 24 hours: N/A Was Clonidine taken within 24 hours: N/A Last intake: Intake Last Liquid Date 08/11/22 Last Liquid Time 20:00 Last Solid Date 08/11/22 Last Solid Time 19:00 Social No alcohol and No tobacco hx chewing tobacco Exam alert, oriented x 3, clear to auscultation bilaterally and regular rate & rhythm Airway Mallampati: Class IV Dentition: other ( missing) Comments: Comments: Denies any residual mass effect, able to lay flat without signs of airway obstruction Hx R glossectomy and neck dissection w/ tracheostomy last year Anesthetic Plan ASA status: 3 Anesthesia: MAC Risk of > 500 ml blood loss (7ml/kg in children): No Medications/Allergies Home Medications Medication Instructions Recorded Confirmed Last Taken Type acetaminophen 500 mg tablet 500 mg PO DAILY PRN pain 01/28/22 08/12/22 1 Day Ago History (Tylenol Extra Strength) ~08/11/22 alprazolam 0.5 mg tablet (Xanax) 0.5 mg PO BID PRN anxiety #60 tabs 07/15/22 08/12/22 1 Day Ago Rx ~08/11/22 Allergies Allergy/AdvReac Type Severity Reaction Status Date / Time No Known Allergies Allergy Verified 08/12/22 08:23 [facility] Anesthesia Medical History Primary tongue squamous cell carcinoma Surgical History Hx of neck surgery (12/24/21) Bilateral neck exploration Status post insertion of percutaneous endoscopic gastrostomy (PEG) tube Status post partial glossectomy (12/23/21) Partial glossectomy with bilateral neck dissection, left ALT flap, and tra cheostomy Family History Grandfather Throat cancer Cancer Family/Other Cancer Maternal aunt Denies family history of Diabetes CAD (coronary artery disease) Clotting disorder Dementia Hyperlipidemia Psychiatric illness Chronic kidney disease (CKD) Suicide Anesthesia complication Bleeding disorder Lung disease Hypertension Stroke Social History Smoking and tobacco status: never smoked Alcohol intake: never Household members: spouse and children Marital status: Number of children: 2 Current occupational status: employed Current occupation: construction Current gender identity: Male Data Anesthesia Cardiac Studies: No Data to Display
--- NOTE | 2022-08-12 09:46 | W.PM.OPSUD ---
Surgery/Procedure H&P Update DATE OF PROCEDURE: August 12, 2022 DATE H&P PERFORMED: 08/06/22 PLANNED PROCEDURE: Operation Date: 08/12/22 10:00 Proposed Procedures p Portacath Placement 16163,C02.3(Not Applicable) - Mauri Silvestre DO
--- NOTE | 2022-08-12 10:14 | XR_ITS ---
WS: [id number] Exam: XR chest 1V portable [id number] Date/Time of Exam: 08/12/2022 10:14 AM Reason For Exam: Post op mediport placement A single limited anterior-posterior C-arm image of the left chest is submitted for evaluation. A left subclavian port has been placed and appears to end in the lower one third of the SVC in good p osition. The visualized left lung appears to be fully expanded.
--- NOTE | 2022-08-12 10:14 | SC_ITS ---
WS: [id number] Exam: XR chest 1V portable [id number] Date/Time of Exam: 08/12/2022 11:14 AM Reason For Exam: s/p mediport The lungs are fully expanded. Cardiomediastinal silhouette is unremarkable. A left subclavian port en ds at the cavoatrial junction. Reticular nodular pulmonary pattern noted bilaterally which is nonspec ific. No consolidated infiltrates. Surgical clips in the right and left neck. SC/C-arm FL for CVA [id number] IMPRESSION: 1. Left subclavian port ending at the cavoatrial junction. 2. Reticular nodular pattern throughout both lungs. 3. No consolidated infiltrates.
[2022-08-12] MEDS: ceFAZolin 2,000 MG in sodium chloride 0.9% (plus) 50 ML 100 MG IV (10:29)
[2022-08-12] MEDS: heparin, porcine 1,000 unit/mL INJ 10 mL 10000 UNIT INJECTION (10:53)
[2022-08-12] MEDS: sodium chloride 0.9% 250 mL Bag 100 ML XX (10:54)
--- NOTE | 2022-08-12 11:14 | XR_ITS ---
WS: [id number] Exam: XR chest 1V portable [id number] Date/Time of Exam: 08/12/2022 11:14 AM Reason For Exam: s/p mediport The lungs are fully expanded. Cardiomediastinal silhouette is unremarkable. A left subclavian port en ds at the cavoatrial junction. Reticular nodular pulmonary pattern noted bilaterally which is nonspec ific. No consolidated infiltrates. Surgical clips in the right and left neck. XR/XR chest 1V portable [id number] IMPRESSION: 1. Left subclavian port ending at the cavoatrial junction. 2. Reticular nodular pattern throughout both lungs. 3. No consolidated infiltrates.
--- NOTE | 2022-08-12 11:15 | P.OP_ITS ---
Operative Report Date of procedure: August 12, 2022 Pre-op diagnosis: Preop Diagnosis Tongue Cancer Post-op diagnosis: same Procedure done: Mediport placement Implants: PowerPort Specimens removed/disposition: None Surgeon: Dr. Mauri Silvestre DO Anesthesia: General Estimated blood loss (mL): 5 Complications: None apparent Brief History: This very pleasant 36-year-old gentleman with tongue cancer who requires chemotherapy. Mediport placement is indicated. The risks and benefits were explained and documented. Procedure: They put another order I will do right now things the patient was taken to the operating room and placed supine on the operating room table. All bony prominences were padded. She was given IV sedation and monitored throughout the case by the anesthesia personnel. SCDs were placed and turned on. The arms were tucked to the side. Patient received Ancef 2 g preoperatively IV. The bilateral chest wall was prepped and draped in usual sterile fashion using chlorhexidine base prep. Sterile drapes were applied. We did procedure pause prior to beginning. An 18 gauge needle was placed in the left subclavian vein. Dark, nonpulsatile blood was aspirated. A guidewire was placed through the needle centrally toward the atrial/vena caval junction. Fluoroscopy visualized good placement. The needle was removed and the guidewire was clipped to the drape with a hemostat. Further local anesthetic was infiltrated in the soft tissues of the left chest wall and a #15 blade was used to make a horizontal skin incision. A subcutaneous Mediport pocket was created using Bovie cautery, dissecting down through the skin and subcutaneous tissues. Meticulous hemostasis was achieved. The Mediport was sutured in position using 3-0 vicryl suture x2 stitches. A #15 blade was used to make a small skin chad around the guidewire insertion area. The Mediport tubing was tunneled through the subcutaneous tissues up to t he needle insertion location. A dilator with a peel-away sheath was placed over the guidewire and placed centrally. After measuring the Mediport tubing was cut to length so that the tip would end at the atrial/vena caval junction. The inner cannula and the guidewire were removed, leaving the dilator sheath in place. The Mediport was flushed. The tip of the catheter was inserted through the peel-away sheath and the peel-away sheath removed in the standard fashion. The Mediport was accessed with a straight Puga needle and dark, nonpulsatile blood was aspirated and flushed using heparinized saline to hep-lock the Mediport. Final fluoroscopy visualization showed no kink in the catheter and the tip of the Mediport tubing near the atrial/vena caval junction. Both skin incisions were thoroughly irrigated and suctioned dry. Meticulous hemostasis noted. The dermis was approximated with 3-0 Vicryl in an interrupted fashion. Skin was closed with Dermabond. Patient was awakened from anesthesia and transferred via her cart to the recovery room in stable condition. All needle, sponge, and instrument counts were correct per the operating personnel x2 counts.
--- NOTE | 2022-08-12 11:54 | P.PCN_ITS ---
PACU note Narrative: VSS, Good respiratory effort, report to SALES RECRUITMENT SPECIALIST Exam: awake
--- NOTE | 2022-08-12 11:54 | PM.PACU ---
PACU note Narrative: VSS, Good respiratory effort, report to SUPERVISOR BENZENE REFINING Exam: awake
--- NOTE | 2022-08-12 14:23 | ANE.PACU2 ---
Inpatient post-anesthesia follow up: Airway intact: Yes Vital signs: Temperature 97.8 F Pulse Rate 73 Respiratory Rate 18 Blood Pressure 126/91 Pulse Oximetry 97 Oxygen Delivery Me thod Room Air Oxygen Flow Rate 6 Fraction of Inspir ed Oxygen Hydration adequate: Yes Nausea and vomiting: No Pain level: 1 Mental status: Baseline
== END 2022-08-12 12:30 | disposition home or self-care (01) ==
PROVIDERS: PCP Nurse Practitioner; Visit Provider Surgery
PROC: (CPT 36561; principal; 2022-08-12 10:00)
DX: C02.3 Malignant neoplasm of anterior two-thirds of tongue, part unspecified (principal); Z87.891 Personal history of nicotine dependence
CPT/HCPCS: 36561; 71045; 77001; C1788; J0690; J1644; J2250; J2704; J3010; J7030; J7050

== ENCOUNTER 2022-09-09 08:00 | Oncology outpatient (recurring) (ONCR) | payer BC, SELFPAY ==
[2022-08-19 09:25] VITALS: BMI 25.0
[2022-08-19 09:51] LABS: Basophils # 0.1 10^3/uL (0.0-0.1); Basophils % 1.2 %; Eosinophils # 0.5 10^3/uL (0.0-0.8); Lymphocytes # 0.5 10^3/uL (0.8-4.8); Mean Corpuscular HGB Conc 34.9 g/dL (30.0-36.0); Mean Corpuscular Hemoglobin 32.1 pg (28.0-34.0); Mean Corpuscular Volume 92.1 fl (80-94); Mean Platelet Volume 9.5 fL (7.4-10.4); Monocytes # 0.5 10^3/uL (0.2-0.9); Monocytes % 9.2 %; Neutrophils # 3.66 10^3/uL (1.8-7.7); Neutrophils % 71.4 %; Nucleated Red Blood Cells % 0 %; Platelet Count 225 10^3/cmm (130-400); Red Blood Count 4.67 10^6/uL (4.1-5.3); Red Cell Distribution Width 10.6 % (12.1-15.1); White Blood Count 5.1 10^3/uL (4.0-10.0)
[2022-08-19 10:13] LABS: Alanine Aminotransferase 14 U/L (0-41); Albumin Level 4.2 g/dL (3.5-5.2); Alkaline Phosphatase 94 U/L (40-130); Anion Gap 15.9 (5-19); Aspartate Amino Transferase 17 U/L (0-40); Blood Urea Nitrogen 8 mg/dL (6-20); Calcium 9.2 mg/dL (8.5-10.5); Carbon Dioxide 25 mmol/L (22-29); Chloride 103 mmol/L (98-107); Globulin 2.7 g/dL (1.3-4.6); Glomerular Filtration Rate 109.4 mL/min (90-130); Glucose 105 mg/dL (65-115); Osmolality Calculated 289 mOsm/kg (285-295); Potassium 3.9 mmol/L (3.5-5.1); Sodium 140 mmol/L (136-145); Thyroid Stimulating Hormone 2.06 uIU/mL (0.27-4.20); Total Bilirubin 0.3 mg/dL (0.15-1.2); Total Protein 6.9 g/dL (6.6-8.7)
[2022-08-19] MEDS: sodium chloride 0.9% 250 ML 75 ML IV (11:06)
[2022-08-19] MEDS: palonosetron 0.25 mg/5 mL SDV IVP (11:07)
[2022-08-19] MEDS: diphenhydrAMINE 50 mg/mL SDV 1mL 25 MG IVP (11:33)
[2022-08-19] MEDS: famotidine 20 mg/2 mL INJ IVP (11:36)
[2022-08-19] MEDS: fosaprepitant 150 MG in sodium chloride 0.9% 150 ML 300 MG IV (11:36)
[2022-08-19] MEDS: pembrolizumab 200 MG in sodium chloride 0.9% 250 ML 516 MG IV (12:15)
[2022-08-19] MEDS: CARBOplatin 750 MG in sodium chloride 0.9% 500 ML 575 MG IV (12:57)
[2022-08-19 14:15] VITALS: BP 117/78; PULSE 78; RESP 18; TEMP 37.2; O2SAT 97
[2022-08-27 09:40] LABS: Eosinophils # 0.1 10^3/uL (0.0-0.8); Eosinophils % 2.7 %; Hematocrit 40.2 % (42.0-52.0); Hemoglobin 14.3 g/dL (11.7-16.6); Lymphocytes # 0.6 10^3/uL (0.8-4.8); Lymphocytes % 14.3 %; Mean Corpuscular HGB Conc 35.6 g/dL (30.0-36.0); Mean Corpuscular Hemoglobin 32.3 pg (28.0-34.0); Mean Corpuscular Volume 90.7 fl (80-94); Mean Platelet Volume 8.9 fL (7.4-10.4); Monocytes # 0.5 10^3/uL (0.2-0.9); Monocytes % 12.9 %; Neutrophils # 2.84 10^3/uL (1.8-7.7); Neutrophils % 68.9 %; Nucleated Red Blood Cells % 0 %; Platelet Count 248 10^3/cmm (130-400); Red Blood Count 4.43 10^6/uL (4.1-5.3); Red Cell Distribution Width 10.5 % (12.1-15.1); White Blood Count 4.1 10^3/uL (4.0-10.0)
[2022-09-03 10:05] LABS: Basophils % 0.5 %; Hematocrit 38.5 % (42.0-52.0); Hemoglobin 13.3 g/dL (11.7-16.6); Lymphocytes # 0.5 10^3/uL (0.8-4.8); Lymphocytes % 12.6 %; Mean Corpuscular HGB Conc 34.5 g/dL (30.0-36.0); Mean Corpuscular Hemoglobin 31.3 pg (28.0-34.0); Mean Corpuscular Volume 90.6 fl (80-94); Mean Platelet Volume 8.8 fL (7.4-10.4); Monocytes # 0.3 10^3/uL (0.2-0.9); Monocytes % 8.5 %; Neutrophils # 2.94 10^3/uL (1.8-7.7); Neutrophils % 75.9 %; Nucleated Red Blood Cells % 0 %; Platelet Count 154 10^3/cmm (130-400); Red Blood Count 4.25 10^6/uL (4.1-5.3); Red Cell Distribution Width 10.8 % (12.1-15.1); White Blood Count 3.9 10^3/uL (4.0-10.0)
[2022-09-09 08:25] LABS: Basophils % 0.6 %; Eosinophils # 0.1 10^3/uL (0.0-0.8); Eosinophils % 2.6 %; Hematocrit 37.4 % (42.0-52.0); Hemoglobin 12.9 g/dL (11.7-16.6); Lymphocytes # 0.4 10^3/uL (0.8-4.8); Lymphocytes % 11.3 %; Mean Corpuscular HGB Conc 34.5 g/dL (30.0-36.0); Mean Corpuscular Hemoglobin 31.6 pg (28.0-34.0); Mean Corpuscular Volume 91.7 fl (80-94); Mean Platelet Volume 8.9 fL (7.4-10.4); Monocytes # 0.4 10^3/uL (0.2-0.9); Monocytes % 13.5 %; Neutrophils # 2.24 10^3/uL (1.8-7.7); Nucleated Red Blood Cells % 0 %; Platelet Count 125 10^3/cmm (130-400); Red Blood Count 4.08 10^6/uL (4.1-5.3); Red Cell Distribution Width 11.2 % (12.1-15.1); White Blood Count 3.1 10^3/uL (4.0-10.0)
[2022-09-09 08:53] LABS: Alanine Aminotransferase 28 U/L (0-41); Albumin Level 3.9 g/dL (3.5-5.2); Alkaline Phosphatase 116 U/L (40-130); Anion Gap 15.2 (5-19); Aspartate Amino Transferase 36 U/L (0-40); Blood Urea Nitrogen 7 mg/dL (6-20); Calcium 9.1 mg/dL (8.5-10.5); Carbon Dioxide 24 mmol/L (22-29); Chloride 102 mmol/L (98-107); Globulin 2.9 g/dL (1.3-4.6); Glomerular Filtration Rate 127.6 mL/min (90-130); Glucose 95 mg/dL (65-115); Osmolality Calculated 282 mOsm/kg (285-295); Potassium 4.2 mmol/L (3.5-5.1); Sodium 137 mmol/L (136-145); Thyroid Stimulating Hormone 1.17 uIU/mL (0.27-4.20); Total Bilirubin 0.3 mg/dL (0.15-1.2); Total Protein 6.8 g/dL (6.6-8.7)
[2022-09-09] MEDS: diphenhydrAMINE 50 mg/mL SDV 1mL 25 MG IVP (10:48)
[2022-09-09] MEDS: famotidine 20 mg/2 mL INJ IVP (10:48)
[2022-09-09] MEDS: sodium chloride 0.9% 250 ML 75 ML IV (10:48)
[2022-09-09] MEDS: palonosetron 0.25 mg/5 mL SDV IVP (10:49)
[2022-09-09] MEDS: fosaprepitant 150 MG in sodium chloride 0.9% 150 ML 300 MG IV (10:49)
[2022-09-09] MEDS: pembrolizumab 200 MG in sodium chloride 0.9% 250 ML 516 MG IV (11:52)
[2022-09-09] MEDS: CARBOplatin 750 MG in sodium chloride 0.9% 500 ML 575 MG IV (12:35)
[2022-09-09 16:28] VITALS: BP 112/68; PULSE 68; RESP 18; TEMP 36.6; O2SAT 100
== END 2022-09-14 23:59 | disposition home or self-care (01) ==
PROVIDERS: Internal Medicine Medical Oncology; PCP Nurse Practitioner; Visit Provider Specialist
DX: Z51.12 Encounter for antineoplastic immunotherapy; Z51.11 Encounter for antineoplastic chemotherapy; C02.3 Malignant neoplasm of anterior two-thirds of tongue, part unspecified; C77.8 Secondary and unspecified malignant neoplasm of lymph nodes of multiple regions; Z90.09 Acquired absence of other part of head and neck; C78.01 Secondary malignant neoplasm of right lung; C78.02 Secondary malignant neoplasm of left lung; D70.1 Agranulocytosis secondary to cancer chemotherapy; T45.1X5A Adverse effect of antineoplastic and immunosuppressive drugs, initial encounter; Z79.899 Other long term (current) drug therapy; Z87.891 Personal history of nicotine dependence
CPT/HCPCS: 36591; 80053; 84443; 85025; 96360; 96367; 96375; 96413; 96417; J1100; J1200; J1453; J2469; J3490; J7040; J7050; J9045; J9271

== ENCOUNTER 2022-10-14 11:30 | Oncology outpatient (recurring) (ONCR) | payer BC, SELFPAY ==
[2022-09-16 11:39] LABS: Basophils % 0.6 %; Eosinophils % 0.6 %; Hematocrit 36.1 % (42.0-52.0); Hemoglobin 12.8 g/dL (11.7-16.6); Lymphocytes # 0.5 10^3/uL (0.8-4.8); Lymphocytes % 16.1 %; Mean Corpuscular HGB Conc 35.5 g/dL (30.0-36.0); Mean Corpuscular Hemoglobin 31.8 pg (28.0-34.0); Mean Corpuscular Volume 89.6 fl (80-94); Mean Platelet Volume 8.8 fL (7.4-10.4); Monocytes # 0.3 10^3/uL (0.2-0.9); Monocytes % 9.1 %; Neutrophils # 2.32 10^3/uL (1.8-7.7); Neutrophils % 73.3 %; Nucleated Red Blood Cells % 0 %; Platelet Count 138 10^3/cmm (130-400); Red Blood Count 4.03 10^6/uL (4.1-5.3); Red Cell Distribution Width 11.3 % (12.1-15.1); White Blood Count 3.2 10^3/uL (4.0-10.0)
[2022-09-22 11:59] LABS: Basophils % 0.3 %; Eosinophils % 0.7 %; Hematocrit 35.4 % (42.0-52.0); Hemoglobin 12.7 g/dL (11.7-16.6); Lymphocytes # 0.4 10^3/uL (0.8-4.8); Lymphocytes % 13.3 %; Mean Corpuscular HGB Conc 35.9 g/dL (30.0-36.0); Mean Corpuscular Hemoglobin 32.8 pg (28.0-34.0); Mean Corpuscular Volume 91.5 fl (80-94); Mean Platelet Volume 8.9 fL (7.4-10.4); Monocytes # 0.2 10^3/uL (0.2-0.9); Monocytes % 7.5 %; Neutrophils % 78.2 %; Nucleated Red Blood Cells % 0 %; Platelet Count 172 10^3/cmm (130-400); Red Blood Count 3.87 10^6/uL (4.1-5.3); Red Cell Distribution Width 11.9 % (12.1-15.1); White Blood Count 2.9 10^3/uL (4.0-10.0)
--- NOTE | 2022-09-22 16:17 | PC.NURSE ---
This nurse showed Deondre Moreno RELEASE OF INFORMATION CLERK this patient's lab CBC results that he had drawn today. Deondre Moreno RELEASE OF INFORMATION CLERK let this nurse know that his labs had no dropped much since the week before. THis nurse called the patient but no answer. This nurse called the to let her know that the RELEASE OF INFORMATION CLERK reviewed his lab results and they had not dropped much. THe acknowleded understanding and had no other questions.
[2022-09-30 08:21] VITALS: BMI 25.2
[2022-09-30 08:27] LABS: Basophils % 0.5 %; Eosinophils % 1.6 %; Hematocrit 33.2 % (42.0-52.0); Hemoglobin 11.4 g/dL (11.7-16.6); Lymphocytes # 0.4 10^3/uL (0.8-4.8); Lymphocytes % 18.7 %; Mean Corpuscular HGB Conc 34.3 g/dL (30.0-36.0); Mean Corpuscular Hemoglobin 32.2 pg (28.0-34.0); Mean Corpuscular Volume 93.8 fl (80-94); Mean Platelet Volume 8.9 fL (7.4-10.4); Monocytes # 0.2 10^3/uL (0.2-0.9); Monocytes % 10.9 %; Neutrophils # 1.32 10^3/uL (1.8-7.7); Neutrophils % 68.3 %; Nucleated Red Blood Cells % 0 %; Platelet Count 147 10^3/cmm (130-400); Red Blood Count 3.54 10^6/uL (4.1-5.3); Red Cell Distribution Width 13.5 % (12.1-15.1); White Blood Count 1.9 10^3/uL (4.0-10.0)
[2022-09-30 08:43] LABS: Alanine Aminotransferase 15 U/L (0-41); Alkaline Phosphatase 90 U/L (40-130); Aspartate Amino Transferase 18 U/L (0-40); Blood Urea Nitrogen 8 mg/dL (6-20); Calcium 9.2 mg/dL (8.5-10.5); Carbon Dioxide 26 mmol/L (22-29); Chloride 106 mmol/L (98-107); Globulin 2.6 g/dL (1.3-4.6); Glomerular Filtration Rate 127.6 mL/min (90-130); Glucose 81 mg/dL (65-115); Osmolality Calculated 289 mOsm/kg (285-295); Sodium 141 mmol/L (136-145); Total Bilirubin 0.3 mg/dL (0.15-1.2); Total Protein 6.6 g/dL (6.6-8.7)
[2022-10-07 10:34] VITALS: BP 121/77; PULSE 91; RESP 16; TEMP 36.4; O2SAT 99
[2022-10-07 10:37] LABS: Basophils % 1.4 %; Eosinophils # 0.1 10^3/uL (0.0-0.8); Hematocrit 37.8 % (42.0-52.0); Hemoglobin 13.3 g/dL (11.7-16.6); Lymphocytes # 0.4 10^3/uL (0.8-4.8); Mean Corpuscular HGB Conc 35.2 g/dL (30.0-36.0); Mean Corpuscular Hemoglobin 32.7 pg (28.0-34.0); Mean Corpuscular Volume 92.9 fl (80-94); Mean Platelet Volume 8.6 fL (7.4-10.4); Monocytes # 0.3 10^3/uL (0.2-0.9); Monocytes % 11.6 %; Neutrophils # 1.93 10^3/uL (1.8-7.7); Neutrophils % 69.6 %; Nucleated Red Blood Cells % 0 %; Platelet Count 267 10^3/cmm (130-400); Red Blood Count 4.07 10^6/uL (4.1-5.3); Red Cell Distribution Width 14.6 % (12.1-15.1); White Blood Count 2.8 10^3/uL (4.0-10.0)
[2022-10-07 10:54] LABS: Alanine Aminotransferase 17 U/L (0-41); Albumin Level 4.5 g/dL (3.5-5.2); Alkaline Phosphatase 98 U/L (40-130); Anion Gap 15.1 (5-19); Aspartate Amino Transferase 21 U/L (0-40); Blood Urea Nitrogen 10 mg/dL (6-20); Carbon Dioxide 24 mmol/L (22-29); Chloride 104 mmol/L (98-107); Globulin 2.7 g/dL (1.3-4.6); Glomerular Filtration Rate 127.6 mL/min (90-130); Glucose 90 mg/dL (65-115); Osmolality Calculated 287 mOsm/kg (285-295); Potassium 4.1 mmol/L (3.5-5.1); Sodium 139 mmol/L (136-145); Total Bilirubin 0.4 mg/dL (0.15-1.2); Total Protein 7.2 g/dL (6.6-8.7)
[2022-10-07] MEDS: sodium chloride 0.9% 250 ML 75 ML IV (11:57)
[2022-10-07] MEDS: famotidine 20 mg/2 mL INJ IVP (11:58)
[2022-10-07] MEDS: diphenhydrAMINE 50 mg/mL SDV 1mL 25 MG IVP (11:58)
[2022-10-07] MEDS: fosaprepitant 150 MG in sodium chloride 0.9% 150 ML 300 MG IV (11:58)
[2022-10-07] MEDS: palonosetron 0.25 mg/5 mL SDV IVP (11:58)
[2022-10-07] MEDS: pembrolizumab 200 MG in sodium chloride 0.9% 250 ML 516 MG IV (13:12)
[2022-10-07] MEDS: CARBOplatin 750 MG in sodium chloride 0.9% 500 ML 575 MG IV (13:59)
[2022-10-07 15:13] VITALS: BP 105/71; PULSE 62; RESP 18; TEMP 36.9; O2SAT 99
[2022-10-14 11:45] VITALS: BP 122/81; PULSE 82; RESP 18; TEMP 37; O2SAT 99
[2022-10-14 11:51] LABS: Basophils % 0.8 %; Eosinophils % 0.8 %; Hematocrit 33.4 % (42.0-52.0); Hemoglobin 11.8 g/dL (11.7-16.6); Lymphocytes # 0.8 10^3/uL (0.8-4.8); Lymphocytes % 20.5 %; Mean Corpuscular HGB Conc 35.3 g/dL (30.0-36.0); Mean Corpuscular Volume 93.3 fl (80-94); Mean Platelet Volume 8.6 fL (7.4-10.4); Monocytes # 0.3 10^3/uL (0.2-0.9); Monocytes % 8.2 %; Neutrophils # 2.53 10^3/uL (1.8-7.7); Neutrophils % 69.4 %; Nucleated Red Blood Cells % 0 %; Platelet Count 265 10^3/cmm (130-400); Red Blood Count 3.58 10^6/uL (4.1-5.3); Red Cell Distribution Width 13.7 % (12.1-15.1); White Blood Count 3.7 10^3/uL (4.0-10.0)
== END 2022-10-15 23:59 | disposition home or self-care (01) ==
PROVIDERS: Nurse Practitioner Family; PCP Nurse Practitioner; Visit Provider Internal Medicine Medical Oncology
DX: C02.3 Malignant neoplasm of anterior two-thirds of tongue, part unspecified (principal); Z95.828 Presence of other vascular implants and grafts
CPT/HCPCS: 36591; 80053; 85025; 96367; 96375; 96413; 96417; J1100; J1200; J1453; J2469; J3490; J7040; J7050; J9045; J9271

== ENCOUNTER 2022-10-28 09:30 | Oncology outpatient (recurring) (ONCR) | payer BC, SELFPAY ==
[2022-10-20 12:06] LABS: Eosinophils % 0.8 %; Hematocrit 34.5 % (42.0-52.0); Hemoglobin 12.3 g/dL (11.7-16.6); Lymphocytes # 0.6 10^3/uL (0.8-4.8); Lymphocytes % 14.4 %; Mean Corpuscular HGB Conc 35.7 g/dL (30.0-36.0); Mean Corpuscular Hemoglobin 33.1 pg (28.0-34.0); Mean Corpuscular Volume 92.7 fl (80-94); Mean Platelet Volume 8.8 fL (7.4-10.4); Monocytes # 0.3 10^3/uL (0.2-0.9); Monocytes % 8.5 %; Neutrophils # 2.92 10^3/uL (1.8-7.7); Nucleated Red Blood Cells % 0 %; Platelet Count 173 10^3/cmm (130-400); Red Blood Count 3.72 10^6/uL (4.1-5.3); Red Cell Distribution Width 14.5 % (12.1-15.1); White Blood Count 3.9 10^3/uL (4.0-10.0)
[2022-10-28 09:47] VITALS: BP 118/74; PULSE 76; RESP 18; TEMP 37.2; O2SAT 99
[2022-10-28 09:53] LABS: Basophils % 0.8 %; Eosinophils # 0.1 10^3/uL (0.0-0.8); Eosinophils % 3.7 %; Hematocrit 33.6 % (42.0-52.0); Hemoglobin 11.9 g/dL (11.7-16.6); Lymphocytes # 0.5 10^3/uL (0.8-4.8); Lymphocytes % 13.2 %; Mean Corpuscular HGB Conc 35.4 g/dL (30.0-36.0); Mean Corpuscular Hemoglobin 34.3 pg (28.0-34.0); Mean Corpuscular Volume 96.8 fl (80-94); Mean Platelet Volume 8.9 fL (7.4-10.4); Monocytes # 0.3 10^3/uL (0.2-0.9); Monocytes % 8.4 %; Neutrophils % 73.6 %; Nucleated Red Blood Cells % 0 %; Platelet Count 100 10^3/cmm (130-400); Red Blood Count 3.47 10^6/uL (4.1-5.3); Red Cell Distribution Width 15.5 % (12.1-15.1); White Blood Count 3.8 10^3/uL (4.0-10.0)
[2022-10-28 10:29] LABS: Alanine Aminotransferase 20 U/L (0-41); Albumin Level 4.4 g/dL (3.5-5.2); Alkaline Phosphatase 100 U/L (40-130); Aspartate Amino Transferase 22 U/L (0-40); Blood Urea Nitrogen 9 mg/dL (6-20); Calcium 9.1 mg/dL (8.5-10.5); Carbon Dioxide 27 mmol/L (22-29); Chloride 107 mmol/L (98-107); Globulin 2.5 g/dL (1.3-4.6); Glomerular Filtration Rate 151.6 mL/min (90-130); Glucose 91 mg/dL (65-115); Osmolality Calculated 294 mOsm/kg (285-295); Sodium 143 mmol/L (136-145); Thyroid Stimulating Hormone 2.27 uIU/mL (0.27-4.20); Total Bilirubin 0.3 mg/dL (0.15-1.2); Total Protein 6.9 g/dL (6.6-8.7)
[2022-10-28] MEDS: sodium chloride 0.9% 250 ML 75 ML IV (12:02)
[2022-10-28] MEDS: diphenhydrAMINE 50 mg/mL SDV 1mL 25 MG IVP (12:02)
[2022-10-28] MEDS: famotidine 20 mg/2 mL INJ IVP (12:02)
[2022-10-28] MEDS: palonosetron 0.25 mg/5 mL SDV IVP (12:03)
[2022-10-28] MEDS: fosaprepitant 150 MG in sodium chloride 0.9% 150 ML 300 MG IV (12:11)
[2022-10-28] MEDS: pembrolizumab 200 MG in sodium chloride 0.9% 250 ML 516 MG IV (13:23)
[2022-10-28] MEDS: CARBOplatin 750 MG in sodium chloride 0.9% 500 ML 575 MG IV (14:06)
[2022-10-28 15:25] VITALS: BP 109/66; PULSE 95; RESP 18; TEMP 36.5; O2SAT 96
== END 2022-10-29 11:06 | disposition home or self-care (01) ==
PROVIDERS: Nurse Practitioner Family; PCP Nurse Practitioner; Visit Provider Internal Medicine Medical Oncology
DX: C02.3 Malignant neoplasm of anterior two-thirds of tongue, part unspecified (principal); Z90.09 Acquired absence of other part of head and neck; C77.8 Secondary and unspecified malignant neoplasm of lymph nodes of multiple regions; C78.01 Secondary malignant neoplasm of right lung; C78.02 Secondary malignant neoplasm of left lung; Z51.12 Encounter for antineoplastic immunotherapy; Z51.11 Encounter for antineoplastic chemotherapy; Z79.899 Other long term (current) drug therapy
CPT/HCPCS: 36415; 36591; 80053; 84443; 85025; 96367; 96375; 96413; 96417; J1100; J1200; J1453; J2469; J3490; J7040; J7050; J9045; J9271

== ENCOUNTER 2022-11-18 09:15 | Oncology outpatient (recurring) (ONCR) | payer BC, SELFPAY ==
[2022-11-18 10:13] LABS: Basophils % 0.9 %; Eosinophils % 0.9 %; Hematocrit 32.7 % (42.0-52.0); Hemoglobin 11.6 g/dL (11.7-16.6); Lymphocytes # 0.4 10^3/uL (0.8-4.8); Lymphocytes % 20.1 %; Mean Corpuscular HGB Conc 35.5 g/dL (30.0-36.0); Mean Corpuscular Hemoglobin 34.8 pg (28.0-34.0); Mean Corpuscular Volume 98.2 fl (80-94); Mean Platelet Volume 9.2 fL (7.4-10.4); Monocytes # 0.3 10^3/uL (0.2-0.9); Monocytes % 13.2 %; Neutrophils # 1.42 10^3/uL (1.8-7.7); Neutrophils % 64.9 %; Nucleated Red Blood Cells % 0 %; Platelet Count 139 10^3/cmm (130-400); Red Blood Count 3.33 10^6/uL (4.1-5.3); Red Cell Distribution Width 15.3 % (12.1-15.1); White Blood Count 2.2 10^3/uL (4.0-10.0)
[2022-11-18 10:26] LABS: Alanine Aminotransferase 19 U/L (0-41); Albumin Level 4.5 g/dL (3.5-5.2); Alkaline Phosphatase 123 U/L (40-130); Anion Gap 17.1 (5-19); Aspartate Amino Transferase 25 U/L (0-40); Blood Urea Nitrogen 9 mg/dL (6-20); Calcium 9.6 mg/dL (8.5-10.5); Carbon Dioxide 23 mmol/L (22-29); Chloride 103 mmol/L (98-107); Globulin 2.8 g/dL (1.3-4.6); Glomerular Filtration Rate 151.6 mL/min (90-130); Glucose 77 mg/dL (65-115); Osmolality Calculated 285 mOsm/kg (285-295); Potassium 4.1 mmol/L (3.5-5.1); Sodium 139 mmol/L (136-145); Total Bilirubin 0.4 mg/dL (0.15-1.2); Total Protein 7.3 g/dL (6.6-8.7)
[2022-11-18] MEDS: diphenhydrAMINE 50 mg/mL SDV 1mL 25 MG IVP (14:36)
[2022-11-18] MEDS: sodium chloride 0.9% 250 ML 75 ML IV (14:36)
[2022-11-18] MEDS: famotidine 20 mg/2 mL INJ IVP (14:37)
[2022-11-18] MEDS: palonosetron 0.25 mg/5 mL SDV IVP (14:37)
[2022-11-18] MEDS: fosaprepitant 150 MG in sodium chloride 0.9% 150 ML 300 MG IV (15:04)
[2022-11-18] MEDS: pembrolizumab 200 MG in sodium chloride 0.9% 250 ML 516 MG IV (15:30)
[2022-11-18] MEDS: CARBOplatin 750 MG in sodium chloride 0.9% 500 ML 575 MG IV (16:03)
[2022-11-18] MEDS: pegfilgrastim 6 mg/0.6 mL Kit (onpro) SUBCUT (17:18)
[2022-11-18 17:23] VITALS: BP 119/77; PULSE 64; TEMP 37; O2SAT 98
== END 2022-12-15 23:59 | disposition home or self-care (01) ==
PROVIDERS: PCP Nurse Practitioner; Visit Provider Internal Medicine Medical Oncology
DX: Z51.11 Encounter for antineoplastic chemotherapy (principal); Z90.09 Acquired absence of other part of head and neck; C77.8 Secondary and unspecified malignant neoplasm of lymph nodes of multiple regions; C78.01 Secondary malignant neoplasm of right lung; C78.02 Secondary malignant neoplasm of left lung; Z79.899 Other long term (current) drug therapy; Z87.891 Personal history of nicotine dependence; C02.3 Malignant neoplasm of anterior two-thirds of tongue, part unspecified; Z51.12 Encounter for antineoplastic immunotherapy
CPT/HCPCS: 80053; 85025; 96367; 96372; 96375; 96413; 96417; J1100; J1200; J1453; J1642; J2469; J2506; J3490; J7040; J7050; J9045; J9271

== ENCOUNTER 2022-12-16 08:42 | Oncology outpatient (recurring) (ONCR) | payer BC, SELFPAY ==
[2022-12-16 08:53] VITALS: BP 119/77; PULSE 86; RESP 16; TEMP 36.8; O2SAT 98
[2022-12-16 08:58] LABS: Basophils % 0.3 %; Eosinophils # 0.2 10^3/uL (0.0-0.8); Eosinophils % 6.9 %; Hematocrit 31.1 % (42.0-52.0); Hemoglobin 10.8 g/dL (11.7-16.6); Lymphocytes # 0.3 10^3/uL (0.8-4.8); Lymphocytes % 8.5 %; Mean Corpuscular HGB Conc 34.7 g/dL (30.0-36.0); Mean Corpuscular Volume 103.7 fl (80-94); Mean Platelet Volume 8.8 fL (7.4-10.4); Monocytes # 0.2 10^3/uL (0.2-0.9); Monocytes % 7.6 %; Neutrophils # 2.42 10^3/uL (1.8-7.7); Neutrophils % 76.4 %; Nucleated Red Blood Cells % 0 %; Platelet Count 168 10^3/cmm (130-400); Red Cell Distribution Width 15.9 % (12.1-15.1); White Blood Count 3.2 10^3/uL (4.0-10.0)
[2022-12-16 09:16] LABS: Alanine Aminotransferase 23 U/L (0-41); Albumin Level 4.1 g/dL (3.5-5.2); Alkaline Phosphatase 112 U/L (40-130); Anion Gap 13.8 (5-19); Aspartate Amino Transferase 25 U/L (0-40); Blood Urea Nitrogen 7 mg/dL (6-20); Calcium 8.9 mg/dL (8.5-10.5); Carbon Dioxide 25 mmol/L (22-29); Chloride 105 mmol/L (98-107); Globulin 2.3 g/dL (1.3-4.6); Glomerular Filtration Rate 126.9 mL/min (90-130); Glucose 98 mg/dL (65-115); Osmolality Calculated 288 mOsm/kg (285-295); Potassium 3.8 mmol/L (3.5-5.1); Sodium 140 mmol/L (136-145); Total Bilirubin 0.3 mg/dL (0.15-1.2); Total Protein 6.4 g/dL (6.6-8.7)
[2022-12-16] MEDS: sodium chloride 0.9% 250 ML 75 ML IV (12:40)
[2022-12-16] MEDS: famotidine 20 mg/2 mL INJ IVP (12:44)
[2022-12-16] MEDS: diphenhydrAMINE 50 mg/mL SDV 1mL 25 MG IVP (12:44)
[2022-12-16] MEDS: fosaprepitant 150 MG in sodium chloride 0.9% 150 ML 300 MG IV (12:45)
[2022-12-16] MEDS: palonosetron 0.25 mg/5 mL SDV IVP (12:45)
[2022-12-16] MEDS: pembrolizumab 200 MG in sodium chloride 0.9% 250 ML 516 MG IV (13:31)
[2022-12-16] MEDS: CARBOplatin 750 MG in sodium chloride 0.9% 500 ML 575 MG IV (14:22)
[2022-12-16 15:45] VITALS: BP 117/74; PULSE 73; RESP 16; TEMP 36.3; O2SAT 96
== END 2023-01-14 23:59 | disposition home or self-care (01) ==
PROVIDERS: PCP Nurse Practitioner; Visit Provider Internal Medicine Medical Oncology
DX: Z51.11 Encounter for antineoplastic chemotherapy (principal); Z90.09 Acquired absence of other part of head and neck; C77.8 Secondary and unspecified malignant neoplasm of lymph nodes of multiple regions; C78.01 Secondary malignant neoplasm of right lung; C78.02 Secondary malignant neoplasm of left lung; Z79.899 Other long term (current) drug therapy; Z87.891 Personal history of nicotine dependence; Z51.12 Encounter for antineoplastic immunotherapy; C02.3 Malignant neoplasm of anterior two-thirds of tongue, part unspecified
CPT/HCPCS: 96361; 96413; 96375; 96367; 96417; 80053; 85025; J1100; J1200; J1453; J1642; J2469; J3490; J7040; J7050; J9045; J9271

== ENCOUNTER 2022-12-28 11:22 | Outpatient (CLI) | payer BC, SELFPAY ==
--- NOTE | 2022-12-28 12:30 | CT_ITS ---
WS: [id number] CT CHEST, ABDOMEN AND PELVIS WITH CONTRAST HISTORY: restaging CT, tongue base cancer. TECHNIQUE: Contiguous 5 mm axial imaging performed through the chest, abdomen and pelvis with IV cont rast, oral contrast has been provided. Coronal and sagittal reformats chest. Coronal and sagittal ref ormats through the abdomen and pelvis. All CT scans at [facility] use at least one of these d ose optimization techniques: automated exposure control; mA and/or kV adjustment per patient size (in cludes targeted exams where dose is matched to clinical indication); or iterative reconstruction. CONTRAST: Omnipaque 350; 100 mL IV. DLP: 606.11 mGy.cm COMPARISON: Prior PET CT 12/16/2021, chest radiograph 08/12/2022. Chest CT: Multiple bilateral pulmonary nodules, masses and opacifications. The largest at the LEFT radha ng base is a solid mass measuring 2.4 x 3.4 cm. There are additional masses, nodules and opacificatio ns of smaller size. Some these are spiculated with adjacent groundglass attenuation. There are opacif ications within the RIGHT upper, RIGHT middle and RIGHT lower lobes. The largest in the RIGHT lower l obe measures 2.1 x 3.2 cm. Additional masses and nodules in the LEFT upper lower lobes. These were no t present on described prior PET/CT. LEFT subclavian Mediport. No supraclavicular lymph nodes are identified. No axillary lymph nodes. No hilar or mediastinal adenopathy. Heart size is normal. No hiatal hernia. Abdomen CT: Normal size liver. Low-attenuation area along the falciform ligament may be hepatic steat osis. No other abnormality or mass. Normal spleen and pancreas. Normal gallbladder. Normal adrenal gl ands. Normal pancreas. Mild atherosclerosis aorta. Normal size kidneys with no obstruction. No adenop athy or ascites. No GI tract obstruction. No small bowel obstruction. Normally distended stomach. Mild constipation. N ormal appendix. Pelvic CT: No inguinal or pelvic lymph nodes. Negative urinary bladder. No osteoblastic or osteolytic bone disease. CT/CT chest abdpel w/*[id number] IMPRESSION: 1. Numerous bilateral and multi lobar pulmonary masses, nodules and groundglas s attenuation foci. The largest consolidation/mass at the LEFT lung base measur es 2.4 x 3.4 cm. At least 6 suspicious lesions are identified. Suspicious for m etastatic disease. 2. No mediastinal or hilar adenopathy. 3. No evidence for metastatic disease within the abdomen or pelvis.
[2022-12-28] MEDS: iohexol 350 mg/mL 100 mL Btl IV (13:00)
== END 2022-12-28 11:23 | disposition home or self-care (01) ==
PROVIDERS: PCP Nurse Practitioner; Visit Provider Internal Medicine Medical Oncology
DX: C02.3 Malignant neoplasm of anterior two-thirds of tongue, part unspecified (principal); R91.8 Other nonspecific abnormal finding of lung field; R53.83 Other fatigue
CPT/HCPCS: 71260; 74177; Q9967

== ENCOUNTER 2023-03-14 07:57 | Oncology outpatient (recurring) (ONCR) | payer BC, SELFPAY ==
[2023-03-07 08:01] VITALS: BP 119/80; PULSE 94; RESP 18; TEMP 36.2; O2SAT 98
[2023-03-07 08:10] LABS: Basophils % 0.6 %; Eosinophils % 0.1 %; Hematocrit 28.5 % (42.0-52.0); Hemoglobin 9.7 g/dL (11.7-16.6); Lymphocytes # 0.4 10^3/uL (0.8-4.8); Mean Corpuscular Hemoglobin 34.6 pg (28.0-34.0); Mean Corpuscular Volume 101.8 fl (80-94); Mean Platelet Volume 8.6 fL (7.4-10.4); Monocytes # 0.7 10^3/uL (0.2-0.9); Monocytes % 9.1 %; Neutrophils # 5.94 10^3/uL (1.8-7.7); Neutrophils % 83.6 %; Nucleated Red Blood Cells % 0 %; Platelet Count 481 10^3/cmm (130-400); Red Cell Distribution Width 11.9 % (12.1-15.1); White Blood Count 7.1 10^3/uL (4.0-10.0)
[2023-03-07 08:32] LABS: Alanine Aminotransferase 11 U/L (0-41); Albumin Level 3.5 g/dL (3.5-5.2); Alkaline Phosphatase 119 U/L (40-130); Anion Gap 13.8 (5-19); Aspartate Amino Transferase 12 U/L (0-40); Blood Urea Nitrogen 3 mg/dL (6-20); Calcium 9.1 mg/dL (8.5-10.5); Carbon Dioxide 29 mmol/L (22-29); Chloride 96 mmol/L (98-107); Glomerular Filtration Rate 151.6 mL/min (90-130); Glucose 101 mg/dL (65-115); Magnesium 1.6 mg/dL (1.7-2.3); Osmolality Calculated 277 mOsm/kg (285-295); Potassium 3.8 mmol/L (3.5-5.1); Sodium 135 mmol/L (136-145); Total Bilirubin 0.3 mg/dL (0.15-1.2); Total Protein 6.5 g/dL (6.6-8.7)
[2023-03-07] MEDS: acetaminophen 325 mg Tablet 650 MG PO (10:28)
[2023-03-07] MEDS: diphenhydrAMINE 50 mg/mL SDV 1mL 25 MG IVP (10:29)
[2023-03-07] MEDS: sodium chloride 0.9% 250 ML 100 ML IV (10:29)
[2023-03-07] MEDS: ondansetron 2 mg/ML SDV 2 mL 8 MG IVP (10:30)
[2023-03-07 11:43] VITALS: BP 111/71; PULSE 85; RESP 18; TEMP 36.7; O2SAT 99
[2023-03-14 07:58] VITALS: BMI 19.0
[2023-03-14 07:59] VITALS: BP 109/72; PULSE 101; RESP 18; TEMP 36.7
[2023-03-14 08:28] LABS: Basophils # 0.1 10^3/uL (0.0-0.1); Basophils % 0.8 %; Eosinophils # 0.1 10^3/uL (0.0-0.8); Eosinophils % 1.4 %; Hematocrit 29.9 % (37-53); Lymphocytes # 0.6 10^3/uL (0.8-4.8); Lymphocytes % 7.4 %; Mean Corpuscular HGB Conc 33.8 g/dL (30-55); Mean Corpuscular Hemoglobin 34.8 pg (27-33); Mean Corpuscular Volume 103.1 fl (82-101); Mean Platelet Volume 9.1 fL (7.4-10.4); Monocytes # 0.5 10^3/uL (0.2-0.9); Monocytes % 6.2 %; Neutrophils # 6.47 10^3/uL (1.8-7.7); Neutrophils % 83.9 %; Nucleated Red Blood Cells % 0 %; Platelet Count 522 10^3/cmm (157-399); Red Cell Distribution Width 12.1 % (12.1-15.1); White Blood Count 7.71 10^3/uL (3.29-11.43)
[2023-03-14 08:36] LABS: Alanine Aminotransferase 13 U/L (0-41); Albumin Level 3.6 g/dL (3.5-5.2); Alkaline Phosphatase 108 U/L (40-130); Aspartate Amino Transferase 15 U/L (0-40); Blood Urea Nitrogen 5 mg/dL (6-20); Calcium 9.1 mg/dL (8.5-10.5); Carbon Dioxide 29 mmol/L (22-29); Chloride 100 mmol/L (98-107); Globulin 2.9 g/dL (1.3-4.6); Glomerular Filtration Rate 151.6 mL/min (90-130); Glucose 91 mg/dL (65-115); Magnesium 1.6 mg/dL (1.7-2.3); Osmolality Calculated 281 mOsm/kg (285-295); Sodium 137 mmol/L (136-145); Total Bilirubin 0.2 mg/dL (0.15-1.2); Total Protein 6.5 g/dL (6.6-8.7)
[2023-03-14 09:36] VITALS: BP 119/70; PULSE 84; RESP 18; TEMP 36.6; O2SAT 97
[2023-03-14] MEDS: sodium chloride 0.9% 250 ML 75 ML IV (11:14)
[2023-03-14] MEDS: palonosetron 0.25 mg/5 mL SDV IVP (11:16)
[2023-03-14] MEDS: OLANZapine 5 mg TABLET PO (11:18)
[2023-03-14] MEDS: acetaminophen 325 mg Tablet 650 MG PO (11:18)
[2023-03-14] MEDS: famotidine 20 mg/2 mL INJ IVP (11:19)
[2023-03-14] MEDS: diphenhydrAMINE 50 mg/mL SDV 1mL 25 MG IVP (11:20)
[2023-03-14] MEDS: fosaprepitant 150 MG in sodium chloride 0.9% 150 ML 300 MG IV (11:42)
[2023-03-14] MEDS: potassium chloride 20 MEQ in sodium chloride 0.9% 500 ML 500 MEQ IV (14:48)
[2023-03-14] MEDS: FUROsemide 10 mg/mL SDV 2mL 20 MG IVP (14:48)
[2023-03-14 15:53] VITALS: BP 104/59; PULSE 79; RESP 16; TEMP 35.9; O2SAT 98
== END 2023-03-17 23:59 | disposition home or self-care (01) ==
PROVIDERS: Internal Medicine Medical Oncology; PCP Nurse Practitioner; Visit Provider Internal Medicine Medical Oncology
DX: Z51.12 Encounter for antineoplastic immunotherapy (principal); C02.3 Malignant neoplasm of anterior two-thirds of tongue, part unspecified; C02.8 Malignant neoplasm of overlapping sites of tongue; C78.01 Secondary malignant neoplasm of right lung; C78.02 Secondary malignant neoplasm of left lung; C77.8 Secondary and unspecified malignant neoplasm of lymph nodes of multiple regions
CPT/HCPCS: 80053; 83735; 85025; 96365; 96366; 96367; 96375; 96413; 96416; 96417; J1100; J1200; J1453; J1642; J1940; J2405; J2469; J3475; J3480; J3490; J7030; J7040; J7050; J9055; J9060; J9190

== ENCOUNTER 2023-04-02 05:33 | Outpatient (CLI) | payer BC, SELFPAY ==
--- NOTE | 2023-04-02 07:30 | PETR_ITS ---
PROCEDURE INFORMATION: Exam: PET/CT Skull Base to Mid-thigh Exam date and time: 04/02/2023 8:31 AM Age: 37 years old Clinical indication: Condition or disease; Primary cancer: HX of tongue cancer; Follow-up oncological assessment; Prior surgery; Surgery date: 6+ months; Surgery type: Neck, port; Additional info: Assess response to treatment, needs pet/ct just prior to cycle 4 day1 please schedule LABS AND CLINICAL REPORTS: Glucose: 74 mg/dl Treatment strategy for malignancy (PET staging): Restaging (PS) TECHNIQUE: Imaging protocol: Following at least four-hour fasting and following the injection of radiopharmaceutical, low dose CT images were obtained. Then, PET images were obtained. Attenuation corrected images were constructed using the CT scan. Fused images of PET and CT were reviewed. The standardized uptake values (SUV) reported below are maximum values within a region of interest, expressed in gm/ml. Exam includes orbital meatal line to mid-thigh. Radiopharmaceutical: 12.17 mCi F-18 FDG (Fluorodeoxyglucose), IV. Time of imaging post radiopharmaceutical administration: 1 hour Injection site: Right antecubital vein COMPARISON: PT PET Scan 07/09/2022, CT chest abdomen pelvis 12/28/2022 FINDINGS: Tubes, catheters and devices: Port catheter placed via the left subclavian vein terminates in the right atrium. Percutaneous gastrostomy tube is in place. Brain: Visualized brain has normal physiologic uptake. Pharynx: No abnormal uptake. Larynx: Benign physiologic posterior uptake. Lungs, pleura and trachea: Bilateral FDG avid lung metastases noted again with morphologic progression and mixed metabolic changes with overall mild progression. About 1.6 x 0.7 cm right upper lobe opacity on axial image 69 measures 2.2 SUV, previously 0.5 cm/1.1 SUV. Right middle lobe opacity on axial image 86 measures 1.4 cm/4.8 SUV, previously 0.8 cm/1.9 SUV. Right lower lobe opacity on axial image 86 measures 2.6 x 1.6 cm/4.3 SUV, previously 1.9 x 0.9 cm/2.8 SUV. Right lower lobe medial paramediastinal nodule on axial image 88 measures 2 x 1.2 cm/4.3 SUV, previously 1.3 x 0.9 cm/3.2 SUV. Left upper lobe nodule on axial image 67 measures 1.5 cm/3.2 SUV, previously 1 cm/3.5 SUV. Left lower lobe mass on axial image 89 measures 3.3 x 2 cm/4.1 SUV, previously 2.4 x 1.4 cm/5.2 SUV. No pleural effusion. Heart: Normal physiologic uptake. There is no cardiomegaly. No coronary artery calcification is visualized. There is no pericardial effusion. Mediastinal space: No abnormal uptake. Liver: No abnormal uptake. Gallbladder and bile ducts: No abnormal uptake. No calcified gallstones. Pancreas: No abnormal uptake. Spleen: No abnormal uptake. No splenomegaly. Adrenal glands: No abnormal uptake. No nodules. Kidneys and ureters: Normal physiologic uptake. No hydronephrosis. Stomach and bowel: No abnormal uptake. No abnormal dilatation of the bowel. Vasculature: No abnormal uptake. No aortic aneurysm. Lymph nodes: No abnormal uptake. No lymphadenopathy in the head, neck, chest, abdomen, pelvis, and extremities. Bones/joints: No focal lesions. Mildly diffusely increased uptake of 3.3 SUV in the bone marrow may suggest benign hyperplastic red marrow Soft tissues: Extensive air-filled soft tissue defect in the right submandibular region and the right upper anterior neck at the level of the hyoid bone and the upper portion of the thyroid cartilage is surrounded by FDG avid soft tissue margins with the highest uptake of 9.4 SUV concerning for cavitary malignant lesion. The area of abnormal uptake measures about 5 cm in the oblique [id number] diameter, 2.7 cm in the anterior-posterior diameter and about 7 cm in the craniocaudal span. Benign intramuscular uptake noted in bilateral hands and forearms and within the left scalene muscles. There is decrease in thickness of subcutaneous fat suggestive of weight loss. PET/PET [facility] SUBSEQ [id number] IMPRESSION: In comparison with 07/09/2022 there is progressive disease as followin. There is large centrally cavitary FDG avid lesion (9.4 SUV) in the right submandibular area and the right upper anterior neck concerning for ulcerated malignant mass of local recurrence. It has developed in place of 2 small FDG avid nodules with the highest uptake of 4.8 SUV documented on the prior exam. 2. Bilateral lung metastases increased in size and mostly increased in uptake though the highest activity currently measures 4.3 SUV, previously 5.2 SUV.
== END 2023-04-02 05:34 | disposition home or self-care (01) ==
LOC: RAD 04-04 05:33
PROVIDERS: PCP Nurse Practitioner; Visit Provider Internal Medicine Medical Oncology
DX: C02.3 Malignant neoplasm of anterior two-thirds of tongue, part unspecified (principal); C78.02 Secondary malignant neoplasm of left lung; C78.01 Secondary malignant neoplasm of right lung
CPT/HCPCS: 78815; A9552

== ENCOUNTER 2023-04-06 07:57 | Oncology outpatient (recurring) (ONCR) | payer BC, SELFPAY ==
[2023-03-18] MEDS: pegfilgrastim 6 mg/0.6 mL Kit (onpro) SUBCUT (11:52)
[2023-03-22 11:12] VITALS: BP 99/77; PULSE 93; RESP 17; TEMP 36.9; O2SAT 98; BMI 17.9
[2023-03-22] MEDS: sodium chloride 0.9% 1,000 ML 999 ML IV (11:20)
[2023-03-22 12:20] VITALS: BP 109/73; PULSE 90; RESP 16; TEMP 36.6; O2SAT 99
[2023-03-23 09:45] VITALS: BMI 17.9
[2023-03-23 10:02] LABS: Basophils # 0.1 10^3/uL (0.0-0.1); Basophils % 0.4 %; Eosinophils % 0.3 %; Lymphocytes # 0.4 10^3/uL (0.8-4.8); Lymphocytes % 2.8 %; Mean Corpuscular HGB Conc 34.6 g/dL (30-55); Mean Corpuscular Hemoglobin 34.2 pg (27-33); Mean Corpuscular Volume 98.6 fl (82-101); Mean Platelet Volume 9.5 fL (7.4-10.4); Monocytes # 0.4 10^3/uL (0.2-0.9); Monocytes % 2.7 %; Neutrophils # 11.86 10^3/uL (1.8-7.7); Neutrophils % 93.3 %; Nucleated Red Blood Cells % 0 %; Platelet Count 216 10^3/cmm (157-399); Red Blood Count 2.84 10^6/uL (3.85-5.65); White Blood Count 12.73 10^3/uL (3.29-11.43)
[2023-03-23 10:15] LABS: Alanine Aminotransferase 16 U/L (0-41); Albumin Level 3.7 g/dL (3.5-5.2); Alkaline Phosphatase 150 U/L (40-130); Aspartate Amino Transferase 10 U/L (0-40); Blood Urea Nitrogen 9 mg/dL (6-20); Calcium 8.4 mg/dL (8.5-10.5); Carbon Dioxide 27 mmol/L (22-29); Chloride 97 mmol/L (98-107); Globulin 2.2 g/dL (1.3-4.6); Glomerular Filtration Rate 242.1 mL/min (90-130); Glucose 97 mg/dL (65-115); Osmolality Calculated 275 mOsm/kg (285-295); Sodium 133 mmol/L (136-145); Total Bilirubin 0.3 mg/dL (0.15-1.2); Total Protein 5.9 g/dL (6.6-8.7)
[2023-03-23] MEDS: acetaminophen 325 mg Tablet 650 MG PO (13:21)
[2023-03-23] MEDS: sodium chloride 0.9% 250 ML 75 ML IV (13:21)
[2023-03-23] MEDS: diphenhydrAMINE 50 mg/mL SDV 1mL 25 MG IVP (13:25)
[2023-03-23] MEDS: ondansetron 2 mg/ML SDV 2 mL 8 MG IVP (13:29)
[2023-03-23] MEDS: potassium chloride premix 20 MEQ/100 ML 100 MEQ IV (13:39)
[2023-03-23 16:41] VITALS: BP 109/65; PULSE 57; RESP 17; TEMP 36.5; O2SAT 99
[2023-03-30 08:53] VITALS: BP 112/81; PULSE 110; RESP 18; TEMP 36.8; O2SAT 97; BMI 18.1
[2023-03-30 09:08] LABS: Basophils % 0.5 %; Eosinophils % 0.5 %; Hematocrit 26.9 % (37-53); Lymphocytes # 0.3 10^3/uL (0.8-4.8); Lymphocytes % 14.6 %; Mean Corpuscular HGB Conc 34.6 g/dL (30-55); Mean Corpuscular Hemoglobin 34.1 pg (27-33); Mean Corpuscular Volume 98.5 fl (82-101); Mean Platelet Volume 9.9 fL (7.4-10.4); Monocytes # 0.4 10^3/uL (0.2-0.9); Monocytes % 17.4 %; Neutrophils # 1.41 10^3/uL (1.8-7.7); Neutrophils % 66.1 %; Nucleated Red Blood Cells % 0 %; Platelet Count 100 10^3/cmm (157-399); Red Blood Count 2.73 10^6/uL (3.85-5.65); Red Cell Distribution Width 13.7 % (12.1-15.1); White Blood Count 2.13 10^3/uL (3.29-11.43)
[2023-03-30 09:27] LABS: Alanine Aminotransferase 9 U/L (0-41); Albumin Level 3.8 g/dL (3.5-5.2); Alkaline Phosphatase 132 U/L (40-130); Anion Gap 14.5 (5-19); Aspartate Amino Transferase 8 U/L (0-40); Blood Urea Nitrogen 7 mg/dL (6-20); Calcium 9.3 mg/dL (8.5-10.5); Carbon Dioxide 27 mmol/L (22-29); Chloride 94 mmol/L (98-107); Globulin 2.6 g/dL (1.3-4.6); Glomerular Filtration Rate 151.6 mL/min (90-130); Glucose 102 mg/dL (65-115); Osmolality Calculated 272 mOsm/kg (285-295); Potassium 3.5 mmol/L (3.5-5.1); Sodium 132 mmol/L (136-145); Total Bilirubin 0.4 mg/dL (0.15-1.2); Total Protein 6.4 g/dL (6.6-8.7)
[2023-03-30 10:28] LABS: Slide Review Slide Review Perform
[2023-03-30] MEDS: sodium chloride 0.9% 250 ML 75 ML IV (11:21)
[2023-03-30] MEDS: diphenhydrAMINE 50 mg/mL SDV 1mL 25 MG IVP (11:21)
[2023-03-30] MEDS: ondansetron 2 mg/ML SDV 2 mL 8 MG IVP (11:26)
[2023-03-30] MEDS: acetaminophen 325 mg Tablet 650 MG PO (11:32)
[2023-03-30 15:18] VITALS: BP 106/69; PULSE 86; TEMP 36.9
[2023-04-06 08:02] VITALS: BP 117/80; PULSE 100; RESP 16; TEMP 36.7; O2SAT 98
[2023-04-06 08:19] LABS: Basophils % 0.7 %; Eosinophils # 0.1 10^3/uL (0.0-0.8); Hematocrit 28.9 % (37-53); Lymphocytes # 0.5 10^3/uL (0.8-4.8); Lymphocytes % 7.7 %; Mean Corpuscular HGB Conc 33.6 g/dL (30-55); Mean Corpuscular Volume 101.4 fl (82-101); Mean Platelet Volume 9.3 fL (7.4-10.4); Monocytes # 0.5 10^3/uL (0.2-0.9); Monocytes % 8.6 %; Neutrophils # 4.87 10^3/uL (1.8-7.7); Neutrophils % 81.7 %; Nucleated Red Blood Cells % 0 %; Platelet Count 276 10^3/cmm (157-399); Red Blood Count 2.85 10^6/uL (3.85-5.65); Red Cell Distribution Width 14.7 % (12.1-15.1); White Blood Count 5.96 10^3/uL (3.29-11.43)
[2023-04-06 08:47] LABS: Alanine Aminotransferase 13 U/L (0-41); Albumin Level 3.7 g/dL (3.5-5.2); Alkaline Phosphatase 143 U/L (40-130); Anion Gap 13.5 (5-19); Aspartate Amino Transferase 14 U/L (0-40); Blood Urea Nitrogen 5 mg/dL (6-20); Calcium 9.3 mg/dL (8.5-10.5); Carbon Dioxide 28 mmol/L (22-29); Chloride 99 mmol/L (98-107); Globulin 2.7 g/dL (1.3-4.6); Glomerular Filtration Rate 151.6 mL/min (90-130); Glucose 107 mg/dL (65-115); Magnesium 1.5 mg/dL (1.7-2.3); Osmolality Calculated 282 mOsm/kg (285-295); Potassium 3.5 mmol/L (3.5-5.1); Sodium 137 mmol/L (136-145); Total Bilirubin 0.2 mg/dL (0.15-1.2); Total Protein 6.4 g/dL (6.6-8.7)
[2023-04-06 12:51] VITALS: BP 113/71; PULSE 78; TEMP 36.7; O2SAT 99
== END 2023-04-16 23:59 | disposition home or self-care (01) ==
PROVIDERS: Internal Medicine Medical Oncology; PCP Nurse Practitioner; Visit Provider Internal Medicine Medical Oncology
DX: C02.3 Malignant neoplasm of anterior two-thirds of tongue, part unspecified
CPT/HCPCS: 80053; 83735; 85025; 96360; 96365; 96366; 96375; 96377; 96413; 96523; J1200; J1642; J2405; J2506; J3475; J3480; J7030; J7050; J9055

== ENCOUNTER 2023-05-05 17:36 | Emergency (ER) | payer BC, SELFPAY ==
[2023-05-05 17:44] VITALS: BP 133/86; PULSE 100; RESP 16; TEMP 36.6; O2SAT 97; BMI 19.3
--- NOTE | 2023-05-05 17:47 | CTR_ITS ---
PROCEDURE INFORMATION: Exam: CTA Head With Contrast, Arteriography Exam date and time: 05/05/2023 6:15 PM Age: 37 years old Clinical indication: Other: Bleeding from surgical site. Prior surgery; Surgery date: 6+ months; Surgery type: Tongue. Neck. Chest port. Patient HX: Patient bleeding from open surgical site from RT side of neck leading into mouth. History of metastatic throat cancer. ; Additional info: Bleeding neck wound TECHNIQUE: Imaging protocol: Computed tomographic angiography of the head with contrast. Exam focused on the arteries. 3D rendering (Not supervised by radiologist): MIP and/or 3D reconstructed images were created by the technologist. Radiation optimization: All CT scans at this facility use at least one of these dose optimization techniques: automated exposure control; mA and/or kV adjustment per patient size (includes targeted exams where dose is matched to clinical indication); or iterative reconstruction. Contrast material: OMNI 350; Contrast volume: 100 ml; Contrast route: INTRAVENOUS (IV); REPORTING DATA: Count of CT and Cardiac NM exams in prior 12 months: This patient has received 0 known CTs and 0 known cardiac nuclear medicine studies in the 12 months prior to the current study. COMPARISON: No relevant prior studies available. RADIATION DOSE METRICS: Total DLP (mGy-cm): 912.06 FINDINGS: ANTERIOR CIRCULATION: Right internal carotid artery: Unremarkable. No occlusion, thrombosis, stenosis, extravasation, dissection, or aneurysm. Right middle cerebral artery: Unremarkable. No occlusion, thrombosis, stenosis, extravasation, dissection, or aneurysm. Right anterior cerebral artery: Unremarkable. No occlusion, thrombosis, stenosis, extravasation, dissection, or aneurysm. Anterior communicating artery: The anterior communicating artery is not visualized. The anterior communicating artery may be congenitally absent, or may be too small for the resolution capabilities of this study. Left internal carotid artery: Unremarkable. No occlusion, thrombosis, stenosis, extravasation, dissection, or aneurysm. Left middle cerebral artery: Unremarkable. No occlusion, thrombosis, stenosis, extravasation, dissection, or aneurysm. Left anterior cerebral artery: Unremarkable. No occlusion, thrombosis, stenosis, extravasation, dissection, or aneurysm. 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 The right vertebral artery terminates as the right posteroinferior cerebellar artery. No occlusion, thrombosis, stenosis, extravasation, dissection, or aneurysm. Left vertebral artery: Dominant left vertebral artery. Left vertebral artery is unremarkable. No occlusion, thrombosis, stenosis, extravasation, dissection, or aneurysm. Basilar artery: Unremarkable. No occlusion, thrombosis, stenosis, extravasation, dissection, or aneurysm. Right posterior cerebral artery: Unremarkable. No occlusion, thrombosis, stenosis, dissection, or aneurysm. Left posterior cerebral artery: Unremarkable. No occlusion, thrombosis, stenosis, extravasation, dissection, or aneurysm. Right posterior communicating artery: The right posterior communicating artery is not visualized. The right posterior communicating artery may be congenitally absent, or may be too small for the resolution capabilities of this study. Left posterior communicating artery: The left posterior communicating artery is not visualized. The left posterior communicating artery may be congenitally absent, or may be too small for the resolution capabilities of this study. Veins: The dural sinuses and deep cerebral veins are patent. Brain: No acute intracranial hemorrhage. No acute infarct. No intra-axial or extra-axial masses. Pickard-white matter differentiation is preserved. No cerebral edema. No extra-axial fluid collections. No midline shift. No evidence for Chiari 1 malformation. Cerebral ventricles: No hydrocephalus. Orbital cavities: Globes and lenses, extraocular muscles, and optic nerves are intact bilaterally. No acute intraorbital abnormality. Bones/joints: Unremarkable. No acute fracture. Soft tissues: No acute abnormality of the extracranial soft tissues. PROCEDURE INFORMATION: Exam: CTA Neck With Contrast Exam date and time: 05/05/2023 6:15 PM Age: 37 years old Clinical indication: Other: Bleeding from surgical site. Prior surgery; Surgery date: 6+ months; Surgery type: Tongue. Neck. Chest port. Patient HX: Patient bleeding from open surgical site from RT side of neck leading into mouth. History of metastatic throat cancer. ; Additional info: Bleeding neck wound TECHNIQUE: Imaging protocol: Computed tomographic angiography of the neck with contrast. 3D rendering (Not supervised by radiologist): MIP and/or 3D reconstructed images were created by the technologist. Radiation optimization: All CT scans at this facility use at least one of these dose optimization techniques: automated exposure control; mA and/or kV adjustment per patient size (includes targeted exams where dose is matched to clinical indication); or iterative reconstruction. Contrast material: OMNI 350; Contrast volume: 100 ml; Contrast route: INTRAVENOUS (IV); REPORTING DATA: Count of CT and Cardiac NM exams in prior 12 months: This patient has received 0 known CTs and 0 known cardiac nuclear medicine studies in the 12 months prior to the current study. COMPARISON: No relevant prior studies available. RADIATION DOSE METRICS: Total DLP (mGy-cm): 912.06 FINDINGS: Tubes, catheters and devices: Left subclavian central line extends into the visualized upper SVC. The tip is not definitely visualized. Right common carotid artery: Unremarkable. No occlusion, thrombosis, stenosis, extravasation, dissection, or aneurysm. Right internal carotid artery: Mild focal calcified plaque at the origin. No occlusion, thrombosis, stenosis, extravasation, dissection, or aneurysm. Right external carotid artery: Unremarkable. No occlusion, thrombosis, stenosis, extravasation, dissection, or aneurysm. Left common carotid artery: Mild calcified plaque in the proximal left CCA. No occlusion, thrombosis, stenosis, extravasation, dissection, or aneurysm. Left internal carotid artery: Mild calcified and noncalcified plaque at the origin. No occlusion, thrombosis, stenosis, extravasation, dissection, or aneurysm. Left external carotid artery: Unremarkable. No occlusion, thrombosis, stenosis, extravasation, dissection, or aneurysm. 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 Right vertebral artery is otherwise unremarkable. No occlusion, thrombosis, stenosis, extravasation, dissection, or aneurysm. Left vertebral artery: Dominant left vertebral artery. Left vertebral artery is unremarkable. No occlusion, thrombosis, stenosis, extravasation, dissection, or aneurysm. Brachiocephalic artery: Unremarkable. No occlusion, thrombosis, stenosis, extravasation, dissection, or aneurysm. Subclavian arteries: Mild calcified plaque in the left subclavian artery. No occlusion, thrombosis, stenosis, extravasation, dissection, or aneurysm. Aorta: Visualized aortic arch is unremarkable. Mastoid air cells: Small amount of fluid in the right and left mastoid air cells. Paranasal sinuses: Mild mucoperiosteal thickening in the right maxillary sinus. Other paranasal sinuses are clear. Pharynx: There is fluid and debris in the hypopharyngeal airway. This may represent oral secretions. Large soft tissue mass extending from the level of the right oropharynx and right tongue base inferiorly along the right anterolateral soft tissues. The mass extends from the deep tissues to the skin surface. There is a large area of cavitation extending from the skin surface at the level of the larynx superiorly to the right oropharyngeal cavity, this may be due to erosion by the mass and or surgery. Multiple surgical clips are seen in the mass. The right portion of the hyoid bone is not visualized, again which may be due to invasion by the mass and/or surgery. The mass invades the anterior right sternocleidomastoid muscle and abuts the right thyroid cartilage. The mass also extends to the right vallecula. The mass measures 8.5 x 5.0 x 5.2 cm (series 17, image 98 and series 8, image 142). There is no extravasation of contrast. Lymph nodes: No lymphadenopathy. Soft tissues: Surgical clips in the left upper neck soft tissues. Bones/joints: Multilevel degenerative changes of varying severity in the visualized spine. Trachea: Debris layering in lower thoracic trachea. This may represent bronchial secretions. Lungs: The spiculated mass in the left upper lobe measuring 2.3 x 1.7 x 1.9 cm (series 17, image 47 and series 8, image 15). Clustered cavitary nodules with surrounding ground-glass opacification in the visualized right upper lobe (series 8, images 133). CT/CT angio headneck* [id number] IMPRESSION: 1. No acute abnormality of the brain. 2. No acute abnormality of the intracranial arteries. No occlusion, thrombosis, stenosis, extravasation, dissection, or aneurysm. 3. The right vertebral artery terminates as the right posteroinferior cerebellar artery. 4. Dominant left vertebral artery. 5. The anterior communicating artery and posterior communicating arteries are not visualized. The posterior communicating arteries may be congenitally absent, or may be too small for the resolution capabilities of this study. IMPRESSION: 1. Large soft tissue mass extending from the level of the right oropharynx and right tongue base inferiorly along the right anterolateral soft tissues. The mass extends from the deep tissues to the skin surface. There is a large area of cavitation extending from the skin surface at the level of the larynx superiorly to the right oropharyngeal cavity, this may be due to erosion by the mass and/or surgery. The right portion of the hyoid bone is not visualized, again which may be due to invasion by the mass and/or surgery. The mass invades the anterior right sternocleidomastoid muscle and abuts the right thyroid cartilage. There is no extravasation of contrast. 2. Clustered cavitary nodules with surrounding ground-glass opacification in the visualized right upper lobe. It is uncertain whether this may represent cavitary metastatic lesions or septic emboli. Recommend clinical correlation. 3. Spiculated mass in the left upper lobe suspicious for a metastatic focus. 4. Debris layering in lower thoracic trachea. This may represent bronchial secretions. 5. There is fluid and debris in the hypopharyngeal airway. This may represent oral secretions. 6. Mild atherosclerotic disease. No occlusion, thrombosis, stenosis, extravasation, dissection, or aneurysm. 7. Small amount of fluid in the right and left mastoid air cells. 8. Incidental/nonacute findings are listed in the report. COMMENTS: THIS REPORT CONTAINS FINDINGS THAT MAY BE CRITICAL TO PATIENT CARE. The findings were verbally communicated via telephone conference with PAM Marvin at 7:28 PM CDT on 05/05/2023. The findings were acknowledged and understood. REFERENCES: NASCET CRITERIA. The degree of stenosis in the cervical segment of the internal carotid artery is based on NASCET criteria. Normal is no stenosis. Mild is less than 50% stenosis. Moderate is 50-69% stenosis. Severe is 70% to 99% stenosis. Total occlusion is no detectable patent lumen.
--- NOTE | 2023-05-05 18:01 | W.ED.NECK ---
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 Associated symptoms: Denies headache(s) or nausea Review of Systems Const: Denies: fever(s), chills, body aches or change in appetite ENMT: Denies: throat pain or dental pain Card: Denies: chest pain Resp: Denies: dyspnea GI: Denies: abdominal pain, nausea, vomiting or diarrhea Musc: Denies: neck pain or back pain Skin/Breast: Denies: rash Neuro: Denies: headache(s) Physical Exam Const: COMMON NORMALS: no acute distress, patient oriented x3 and healthy appearing HENMT: COMMON NORMALS: normocephalic and atraumatic HEAD & SCALP: normocephalic and atraumatic Eye: COMMON NORMALS: Equal, round and reactive pupils present and EOMs intact bilaterally PUPIL: Yes Equal, round and reactive pupils present Neck/C-Spine: OTHER: Chronic open wound to right side of the neck no bleeding at this time Chest: COMMONS NORMALS: normal inspection of the chest and normal palpation of entire chest wall Resp: COMMON NORMALS: normal respiratory effort, No retractions, No use of accessory muscles and clear to auscultation bilaterally AUSCULTATION: clear to auscultation bilaterally Cardio: COMMON NORMALS: regular rate, regular rhythm and No murmurs present (Cardio) RATE: regular rate RHYTHM: regular rhythm GI: COMMON NORMALS: Normal to inspection, nondistended, normoactive bowel sounds present, Soft to palpation, non-tender and no masses PALPATION: Yes Soft to palpation Extremity: COMMON NORMALS: normal to inspection and full ROM Neuro: COMMON NORMALS: patient oriented x3, moves all extremities and no focal motor deficits Psych: COMMON NORMALS: mental status grossly normal, Normal thought process present and cooperative THOUGHT PROCESS: Normal thought process present Skin: COMMON NORMALS: no rashes or lesions noted and no wounds GENERAL SKIN EXAM: no rashes or lesions noted Course Vital Signs: Vital signs: Vital Signs Temperature 97.8 F 05/05/23 17:44 Pulse Rate 100 05/05/23 17:44 Respiratory Rate 16 05/05/23 17:44 Blood Pressure 133/86 05/05/23 17:44 Pulse Oximetry 97 05/05/23 17:44 Oxygen Delivery Me thod Room Air 05/05/23 17:44 MDM - Neck Pain/Injury Medical Decision Making The patient presented here with bleeding from his chronic neck wound is since stopped he has had no more bleeding here CTA shows no arterial injuries. He is stable for discharge his follow-up with his oncologist return if worsening he understands agrees to plan Medical Records I reviewed the patient's medical records. Lab Data I reviewed the patient's lab results. 05/05/23 18:02 05/05/23 18:02 Radiology Impressions Head/Neck CTA 05/05/23 17:47 IMPRESSION: 1. No acute abnormality of the brain. 2. No acute abnormality of the intracranial arteries. No occlusion, thrombosis, stenosis, extravasation, dissection, or aneurysm. 3. The right vertebral artery terminates as the right posteroinferior cerebellar artery. 4. Dominant left vertebral artery. 5. The anterior communicating artery and posterior communicating arteries are not visualized. The posterior communicating arteries may be congenitally absent, or may be too small for the resolution capabilities of this study. IMPRESSION: 1. Large soft tissue mass extending from the level of the right oropharynx and right tongue base inferiorly along the right anterolateral soft tissues. The mass extends from the deep tissues to the skin surface. There is a large area of cavitation extending from the skin surface at the level of the larynx superiorly to the right oropharyngeal cavity, this may be due to erosion by the mass and/or surgery. The right portion of the hyoid bone is not visualized, again which may be due to invasion by the mass and/or surgery. The mass invades the anterior right sternocleidomastoid muscle and abuts the right thyroid cartilage. There is no extravasation of contrast. 2. Clustered cavitary nodules with surrounding ground-glass opacification in the visualized right upper lobe. It is uncertain whether this may represent cavitary metastatic lesions or septic emboli. Recommend clinical correlation. 3. Spiculated mass in the left upper lobe suspicious for a metastatic focus. 4. Debris layering in lower thoracic trachea. This may represent bronchial secretions. 5. There is fluid and debris in the hypopharyngeal airway. This may represent oral secretions. 6. Mild atherosclerotic disease. No occlusion, thrombosis, stenosis, extravasation, dissection, or aneurysm. 7. Small amount of fluid in the right and left mastoid air cells. 8. Incidental/nonacute findings are listed in the report. COMMENTS: THIS REPORT CONTAINS FINDINGS THAT MAY BE CRITICAL TO PATIENT CARE. The findings were verbally communicated via telephone conference with PAM Marvin at 7:28 PM CDT on 05/05/2023. The findings were acknowledged and understood. REFERENCES: NASCET CRITERIA. The degree of stenosis in the cervical segment of the internal carotid artery is based on NASCET criteria. Normal is no stenosis. Mild is less than 50% stenosis. Moderate is 50-69% stenosis. Severe is 70% to 99% stenosis. Total occlusion is no detectable patent lumen. Laboratory Results WBC 9.19 10^3/uL (3.29-11.43) 05/05/23 18: RBC 2.78 10^6/uL (3.85-5.65) L 05/05/23 18: Hgb 8.90 g/dL (11.27-16.99) L 05/05/23 18: Hct 27.8 % (37-53) L 05/05/23 18: MCV 100.0 fl (82-101) 05/05/23 18: MCH 32.0 pg (27-33) 05/05/23 18: MCHC 32.0 g/dL (30-55) 05/05/23 18: RDW 13.1 % (12.1-15.1) 05/05/23 18: Plt Count 410 10^3/cmm (157-399) H 05/05/23 18: MPV 9.0 fL (7.4-10.4) 05/05/23 18: Neut % (Auto) 82.9 % 05/05/23 18: Lymph % (Auto) 4.6 % 05/05/23 18:02 Braxton % (Auto) 6.7 % 05/05/23 18:02 Eos % (Auto) 4.7 % 05/05/23 18:02 Baso % (Auto) 0.7 % 05/05/23 18:02 Neut # (Auto) 7.62 10^3/uL (1.8-7.7) 05/05/23 18:02 Lymph # (Auto) 0.4 10^3/uL (0.8-4.8) L 05/05/23 18:02 Braxton # (Auto) 0.6 10^3/uL (0.2-0.9) 05/05/23 18:02 Eos # (Auto) 0.4 10^3/uL (0.0-0.8) 05/05/23 18:02 Baso # (Auto) 0.1 10^3/uL (0.0-0.1) 05/05/23 18:02 Nucleated RBC % (auto) 0 % 05/05/23 18:02 Nucleated RBCs # 0.0 /100WBC 05/05/23 18:02 Sodium 134 mmol/L (136-145) L 05/05/23 18:02 Potassium 3.8 mmol/L (3.5-5.1) 05/05/23 18:02 Chloride 97 mmol/L (98-107) L 05/05/23 18:02 Carbon Dioxide 26 mmol/L (22-29) 05/05/23 18:02 Anion Gap 14.8 (5-19) 05/05/23 18:02 BUN 6 mg/dL (6-20) 05/05/23 18:02 Creatinine 0.6 mg/dL (0.7-1.2) L 05/05/23 18:02 GFR Calculation 151.6 mL/min (90-130) H 05/05/23 18:02 Glucose 92 mg/dL (65-115) 05/05/23 18:02 Calculated Osmolality 275 mOsm/kg (285-295) L 05/05/23 18:02 Calcium 10.1 mg/dL (8.5-10.5) 05/05/23 18:02 Total Bilirubin 0.3 mg/dL (0.15-1.2) 05/05/23 18:02 AST 11 U/L (0-40) 05/05/23 18:02 ALT 6 U/L (0-41) 05/05/23 18:02 Alkaline Phosphatase 74 U/L (40-130) 05/05/23 18:02 Total Protein 6.6 g/dL (6.6-8.7) 05/05/23 18:02 Albumin 3.7 g/dL (3.5-5.2) 05/05/23 18:02 Globulin 2.9 g/dL (1.3-4.6) 05/05/23 18:02 All radiology interpretation(s) finalized by discharge Discharge Plan Discharge Patient Disposition: Home Clinical Impression: Open neck wound Condition: Stable Discharge Orders: Discharge ED (Routine); Ordered 05/05/23 Ordered By: Pam Smiley Referrals: Swapnil Jerome MD [Hospitalist] - 1-3 days Discharge Diet: Advance as tolerated Discharge Activity: Resume usual activity Patient Instructions: Wound Care (General) Coding Level of Care Code ED Telemetry Tech for Cintia Lewis
[2023-05-05] MEDS: iohexol 350 mg/mL 500 mL Btl (per mL) IV (18:14)
[2023-05-05 18:24] LABS: Basophils # 0.1 10^3/uL (0.0-0.1); Basophils % 0.7 %; Eosinophils # 0.4 10^3/uL (0.0-0.8); Eosinophils % 4.7 %; Hematocrit 27.8 % (37-53); Lymphocytes # 0.4 10^3/uL (0.8-4.8); Lymphocytes % 4.6 %; Monocytes # 0.6 10^3/uL (0.2-0.9); Monocytes % 6.7 %; Neutrophils # 7.62 10^3/uL (1.8-7.7); Neutrophils % 82.9 %; Nucleated Red Blood Cells % 0 %; Platelet Count 410 10^3/cmm (157-399); Red Blood Count 2.78 10^6/uL (3.85-5.65); Red Cell Distribution Width 13.1 % (12.1-15.1); White Blood Count 9.19 10^3/uL (3.29-11.43)
[2023-05-05 18:31] LABS: Alanine Aminotransferase 6 U/L (0-41); Albumin Level 3.7 g/dL (3.5-5.2); Alkaline Phosphatase 74 U/L (40-130); Anion Gap 14.8 (5-19); Aspartate Amino Transferase 11 U/L (0-40); Blood Urea Nitrogen 6 mg/dL (6-20); Calcium 10.1 mg/dL (8.5-10.5); Carbon Dioxide 26 mmol/L (22-29); Chloride 97 mmol/L (98-107); Globulin 2.9 g/dL (1.3-4.6); Glomerular Filtration Rate 151.6 mL/min (90-130); Glucose 92 mg/dL (65-115); Osmolality Calculated 275 mOsm/kg (285-295); Potassium 3.8 mmol/L (3.5-5.1); Sodium 134 mmol/L (136-145); Total Bilirubin 0.3 mg/dL (0.15-1.2); Total Protein 6.6 g/dL (6.6-8.7)
[2023-05-05 19:56] VITALS: BP 128/81; PULSE 88; RESP 16; O2SAT 99
== END 2023-05-05 20:00 | disposition home or self-care (01) ==
PROVIDERS: Emergency Provider Emergency Medicine
DX: S11.90XA Unspecified open wound of unspecified part of neck, initial encounter (principal); Z85.89 Personal history of malignant neoplasm of other organs and systems; Z92.21 Personal history of antineoplastic chemotherapy; Y83.8 Other surgical procedures as the cause of abnormal reaction of the patient, or of later complication, without mention of misadventure at the time of the procedure
CPT/HCPCS: 70496; 70498; 80053; 85025; 99285; J1642; Q9967

== ENCOUNTER 2023-05-16 23:09 | Emergency (ER) | payer BC, SELFPAY ==
[2023-05-16 23:11] VITALS: BP 150/99; PULSE 120; RESP 16; TEMP 37.4; O2SAT 100; BMI 19.3
[2023-05-16 23:25] VITALS: BP 150/100; PULSE 98; RESP 20; O2SAT 98
[2023-05-16 23:38] VITALS: RESP 18; O2SAT 100
[2023-05-16] MEDS: HYDROmorphone 1 mg/mL INJ 1 mL IVP (23:38)
[2023-05-16] MEDS: ondansetron 2 mg/ML SDV 2 mL 4 MG IVP (23:39)
[2023-05-16 23:40] VITALS: BP 154/95; PULSE 109; RESP 20; O2SAT 100
[2023-05-16 23:40] LABS: Basophils % 0.4 %; Eosinophils # 0.3 10^3/uL (0.0-0.8); Eosinophils % 3.6 %; Hematocrit 26.4 % (37-53); Lymphocytes # 0.5 10^3/uL (0.8-4.8); Lymphocytes % 5.5 %; Mean Corpuscular HGB Conc 32.6 g/dL (30-55); Mean Corpuscular Hemoglobin 31.2 pg (27-33); Mean Corpuscular Volume 95.7 fl (82-101); Mean Platelet Volume 8.6 fL (7.4-10.4); Monocytes # 0.5 10^3/uL (0.2-0.9); Monocytes % 5.8 %; Neutrophils # 7.69 10^3/uL (1.8-7.7); Neutrophils % 84.5 %; Nucleated Red Blood Cells % 0 %; Platelet Count 369 10^3/cmm (157-399); Red Blood Count 2.76 10^6/uL (3.85-5.65); Red Cell Distribution Width 13.2 % (12.1-15.1); White Blood Count 9.11 10^3/uL (3.29-11.43)
--- NOTE | 2023-05-16 23:53 | W.ED.GENADLT ---
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 Patient's had some bleeding on and off to the area. Patient been evaluated before on the with CT scan and CTA of the head and neck that showed no erosion of the great vessels of the neck. Patient has a large clot in the wound at this time. Patient appears nontoxic. Review of Systems General: Reports: 10 or more systems reviewed and unremarkable except in HPI and below Physical Exam Const: COMMON NORMALS: alert HENMT: COMMON NORMALS: normocephalic HEAD & SCALP: normocephalic Eye: GENERAL EYE: appearance normal, both eyes and all related structures Neck/C-Spine: OTHER: Patient has a open ulcer to the right anterior aspect of his neck with a large clot in it. Patient does have some light bleeding around the area. Resp: COMMON NORMALS: normal respiratory effort and clear to auscultation bilaterally AUSCULTATION: clear to auscultation bilaterally Cardio: COMMON NORMALS: regular rate and regular rhythm RATE: regular rate RHYTHM: regular rhythm Back/Pelvis: COMMON NORMALS: thoracic and lumbar spine normal to inspection Extremity: COMMON NORMALS: normal to inspection Neuro: SENSORIUM/ORIENTATION: Yes alert Skin: COMMON NORMALS: turgor normal GENERAL SKIN EXAM: turgor normal Course Vital Signs: Vital signs: Vital Signs Temperature 99.4 F 05/16/23 23:11 Pulse Rate 93 05/17/23 00:26 Respiratory Rate 16 05/17/23 00:26 Blood Pressure 136/84 05/17/23 00:26 Pulse Oximetry 100 05/17/23 00:26 Oxygen Delivery Me thod Room Air 05/17/23 00:26 MDM - General Adult Medical Decision Making 37-year-old male patient comes in today with bleeding from a chronic wound to the right neck. 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 Today started having bleeding from the site around 7:00 in the evening. Patient was unable to get it to stop and came to the ER for evaluation and treatment. On exam noted a large clot in the ulcer. No bright red blood was noted. Vital signs were normal except for some elevation in pulse at 120. Differential diagnosis includes chronic wound bleeding, erosion of vessel, wound infection, anemia. Wound was cleaned and packed with packing gauze. Dressing was applied to the area. Reviewed patient with Dr. Smiley who recommended transemic acid and agreed with plan of removal of clot and packing wound and supportive dressing. Bleeding was brought under control. Patient was monitored and discharged to home. CBC showed no significant change from prior results 2 weeks ago. CMP was unremarkable. Patient reported understanding of care plan and need for follow-up or return to the ER. Lab Data 05/16/23 23:34 05/16/23: Laboratory Results WBC 9.11 10^3/uL (3.29-11.43) 05/16/23: RBC 2.76 10^6/uL (3.85-5.65) L 05/16/23: Hgb 8.60 g/dL (11.27-16.99) L 05/16/23: Hct 26.4 % (37-53) L 05/16/23: MCV 95.7 fl (82-101) 05/16/23: MCH 31.2 pg (27-33) 05/16/23: MCHC 32.6 g/dL (30-55) 05/16/23: RDW 13.2 % (12.1-15.1) 05/16/23: Plt Count 369 10^3/cmm (157-399) 05/16/23: MPV 8.6 fL (7.4-10.4) 05/16/23: Neut % (Auto) 84.5 % 05/16/23: Lymph % (Auto) 5.5 % 05/16/23: [place] % (Auto) 5.8 % 05/16/23: Eos % (Auto) 3.6 % 05/16/23: Baso % (Auto) 0.4 % 05/16/23: Neut # (Auto) 7.69 10^3/uL (1.8-7.7) 05/16/23: Lymph # (Auto) 0.5 10^3/uL (0.8-4.8) L 10/30/23 23:34 [place] # (Auto) 0.5 10^3/uL (0.2-0.9) 05/16/23 23:34 Eos # (Auto) 0.3 10^3/uL (0.0-0.8) 05/16/23 23:34 Baso # (Auto) 0.0 10^3/uL (0.0-0.1) 05/16/23 23:34 Nucleated RBC % (auto) 0 % 05/16/23 23:34 Nucleated RBCs # 0.0 /100WBC 05/16/23 23:34 Sodium 133 mmol/L (136-145) L 05/16/23 23:34 Potassium 3.5 mmol/L (3.5-5.1) 05/16/23 23:34 Chloride 100 mmol/L (98-107) 05/16/23 23:34 Carbon Dioxide 25 mmol/L (22-29) 05/16/23 23:34 Anion Gap 11.5 (5-19) 05/16/23 23:34 BUN 5 mg/dL (6-20) L 05/16/23 23:34 Creatinine 0.7 mg/dL (0.7-1.2) 05/16/23 23:34 GFR Calculation 126.9 mL/min (90-130) 05/16/23 23:34 Glucose 101 mg/dL (65-115) 05/16/23 23:34 Calculated Osmolality 273 mOsm/kg (285-295) L 05/16/23 23:34 Calcium 9.6 mg/dL (8.5-10.5) 05/16/23 23:34 Total Bilirubin 0.2 mg/dL (0.15-1.2) 05/16/23 23:34 AST 13 U/L (0-40) 05/16/23 23:34 ALT 9 U/L (0-41) 05/16/23 23:34 Alkaline Phosphatase 71 U/L (40-130) 05/16/23 23:34 Total Protein 6.5 g/dL (6.6-8.7) L 05/16/23 23:34 Albumin 3.5 g/dL (3.5-5.2) 05/16/23 23:34 Globulin 3.0 g/dL (1.3-4.6) 05/16/23 23:34 Blood Type O Positive 05/16/23 23:34 Rho(D) Type Positive 05/16/23 23:34 Antibody Screen Negative 05/16/23 23:34 All radiology interpretation(s) finalized by discharge Discharge Plan Discharge Patient Disposition: Home Clinical Impression: Bleeding from wound, Cancer of head and neck Condition: Stable Discharge Orders: Discharge ED (Routine); Ordered 05/17/23 Ordered By: Quinton Romero Discharge Diet: Usual diet Discharge Activity: Increase activity as tolerated Patient Instructions: Pain Management Activity Restrictions/Additional Instructions: Leave packing in place. Change outer dressing as needed. Follow-up with scheduled appointments. Return to ED for worsening symptoms such as fever greater than 100.5, increased bleeding, or new concerns. Coding Level of Care Code ED Semiautomatic Taper Operator for Cintia Lewis
[2023-05-16 23:55] VITALS: BP 119/74; PULSE 79; RESP 18; O2SAT 97
[2023-05-17 00:05] LABS: Alanine Aminotransferase 9 U/L (0-41); Albumin Level 3.5 g/dL (3.5-5.2); Alkaline Phosphatase 71 U/L (40-130); Anion Gap 11.5 (5-19); Aspartate Amino Transferase 13 U/L (0-40); Blood Urea Nitrogen 5 mg/dL (6-20); Calcium 9.6 mg/dL (8.5-10.5); Carbon Dioxide 25 mmol/L (22-29); Chloride 100 mmol/L (98-107); Glomerular Filtration Rate 126.9 mL/min (90-130); Glucose 101 mg/dL (65-115); Osmolality Calculated 273 mOsm/kg (285-295); Potassium 3.5 mmol/L (3.5-5.1); Sodium 133 mmol/L (136-145); Total Bilirubin 0.2 mg/dL (0.15-1.2); Total Protein 6.5 g/dL (6.6-8.7)
[2023-05-17 00:26] VITALS: BP 136/84; PULSE 93; RESP 16; O2SAT 100
== END 2023-05-17 00:59 | disposition home or self-care (01) ==
PROVIDERS: Emergency Provider Nurse Practitioner Family
DX: S11.89XA Other open wound of other specified part of neck, initial encounter (principal); C76.0 Malignant neoplasm of head, face and neck; X58.XXXA Exposure to other specified factors, initial encounter
CPT/HCPCS: 80053; 85025; 86850; 86900; 99284; J1170; J2405

== ENCOUNTER → 2023-05-20 09:47 | Outpatient (BNVA) | payer BC, SELFPAY | PROVIDERS: Visit Provider Thoracic Surgery (Cardiothoracic Vascular Surgery) | DX: I96 Gangrene, not elsewhere classified (principal); L98.492 Non-pressure chronic ulcer of skin of other sites with fat layer exposed | CPT/HCPCS: 88304; 88305 ==

== ENCOUNTER 2023-05-21 11:56 | Emergency (ER) | payer BC, SELFPAY ==
[2023-05-21] VITALS (11 sets, daily range): BP systolic 104–129; BP diastolic 73–83; PULSE 105–127; RESP 18; TEMP 36.8–37.7; O2SAT 94–99; BMI 19.3
[2023-05-21] MEDS: morphine 4 mg/mL SDV 1 mL IVP (12:12)
[2023-05-21] MEDS: ondansetron 2 mg/ML SDV 2 mL 4 MG IVP (12:12)
[2023-05-21 12:28] LABS: Basophils % 0.2 %; Eosinophils % 0.2 %; Hematocrit 22.8 % (37-53); Lymphocytes # 0.2 10^3/uL (0.8-4.8); Lymphocytes % 1.5 %; Mean Corpuscular HGB Conc 31.1 g/dL (30-55); Mean Corpuscular Hemoglobin 30.2 pg (27-33); Mean Platelet Volume 8.9 fL (7.4-10.4); Monocytes # 0.7 10^3/uL (0.2-0.9); Monocytes % 5.8 %; Neutrophils # 11.38 10^3/uL (1.8-7.7); Nucleated Red Blood Cells % 0 %; Platelet Count 323 10^3/cmm (157-399); Red Blood Count 2.35 10^6/uL (3.85-5.65); Red Cell Distribution Width 13.8 % (12.1-15.1); White Blood Count 12.37 10^3/uL (3.29-11.43)
[2023-05-21 12:51] LABS: Alanine Aminotransferase 18 U/L (0-41); Albumin Level 2.9 g/dL (3.5-5.2); Alkaline Phosphatase 96 U/L (40-130); Anion Gap 13.3 (5-19); Aspartate Amino Transferase 21 U/L (0-40); Blood Urea Nitrogen 6 mg/dL (6-20); Calcium 9.2 mg/dL (8.5-10.5); Carbon Dioxide 29 mmol/L (22-29); Chloride 94 mmol/L (98-107); Globulin 3.3 g/dL (1.3-4.6); Glomerular Filtration Rate 151.6 mL/min (90-130); Glucose 101 mg/dL (65-115); Osmolality Calculated 274 mOsm/kg (285-295); Potassium 3.3 mmol/L (3.5-5.1); Sodium 133 mmol/L (136-145); Total Bilirubin 0.2 mg/dL (0.15-1.2); Total Protein 6.2 g/dL (6.6-8.7)
--- NOTE | 2023-05-21 12:52 | W.ED.GENADLT ---
Documented by User: Eligio Zapata DO 05/22/23 07:34 HPI - General Adult General: Chief complaint: Airway/Esophagus Foreign Body Stated complaint: NECK WOUND DEHISCING Time Seen by Provider: 05/21/23 11:58 Source: patient Mode of arrival: ambulatory History of Present Illness: 37-year-old male presents to the emergency room complaint of the bleeding from the right side of the neck. 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 He has been seeing Dr. Jerome he had been seen previously in [place] and then was getting treatments with Dr. Jerome. He has switched his care from [place] to cancer treatment [facility] in [facility]. By the time he arrived here he had large amount of blood on his T-shirt and blood on the bandage but there was no active bleeding. Onset (ago): minute(s) Location: neck Associated symptoms: Deny chest pain, confusion, cough, diaphoresis, decreased appetite, dyspnea, fevers/chills, headache(s), malaise, nausea, rash, palpitations, seizures, short of breath, syncope, vomiting or weakness Review of Systems Const: Denies: fever(s), chills, malaise or diaphoresis Card: Denies: chest pain, palpitations or syncope Resp: Denies: dyspnea GI: Denies: nausea or vomiting : Denies: dysuria, urinary frequency or urinary urgency Musc: Reports: neck pain; Denies: back pain Skin/Breast: Denies: rash Neuro: Denies: headache(s) or confusion PFSH ED PFSH: Medical History Primary tongue squamous cell carcinoma Surgical History Hx of neck surgery (12/24/21) Bilateral neck exploration Port-A-Cath in place Status post insertion of percutaneous endoscopic gastrostomy (PEG) tube Status post partial glossectomy (12/23/21) Partial glossectomy with bilateral neck dissection, left ALT flap, and tracheostomy Family History Grandfather Throat cancer Cancer Family/Other Cancer Maternal aunt Denies family history of Diabetes CAD (coronary artery disease) Clotting disorder Dementia Hyperlipidemia Psychiatric illness Chronic kidney disease (CKD) Suicide Anesthesia complication Bleeding disorder Lung disease Hypertension Stroke Social History Smoking and tobacco/nicotine status: never used tobacco/nicotine Alcohol intake: never Household members: spouse and children Marital status: Number of children: 2 Current occupational status: employed Current occupation: construction Current gender identity: Male Physical Exam Const: GENERAL APPEARANCE: cooperative and comfortable ORIENTATION/CONSCIOUSNESS: Yes awake, Yes oriented to person, Yes oriented to place and Yes oriented to time HENMT: COMMON NORMALS: normocephalic, atraumatic and hearing grossly normal bilaterally HEAD & SCALP: normocephalic and atraumatic Neck/C-Spine: OTHER: Large open defect about 3 inches across and 2 inches deep with some mild tunneling on the right submandibular region. Gauze removed there is no active bleeding wound observed for a time and then repacked with saline soaked gauze patient tolerated well. Base of the wound appears to be communicating with the pharynx there is some air escaping from it was sputtering of saliva and blood with expiration. Anterior at the level of the larynx there is another wound that appears to be tunneling no bleeding from this wound. Resp: COMMON NORMALS: normal respiratory effort, No retractions, No use of accessory muscles and clear to auscultation bilaterally AUSCULTATION: clear to auscultation bilaterally Cardio: COMMON NORMALS: regular rate, regular rhythm and No murmurs present (Cardio) RATE: regular rate RHYTHM: regular rhythm GI: COMMON NORMALS: Soft to palpation and No hepatosplenomegaly present AUSCULTATION: Yes normoactive bowel sounds PALPATION: Yes Soft to palpation, No Tenderness to palpation present (GI), No Guarding due to palpation present (GI) and Yes No hepatosplenomegaly present Extremity: COMMON NORMALS: normal to inspection, capillary refill normal, no clubbing, cyanosis or edema, no calf tenderness and no pedal edema Neuro: SENSORIUM/ORIENTATION: Yes oriented to person, Yes oriented to place and Yes oriented to time Skin: COMMON NORMALS: no rashes or lesions noted GENERAL SKIN EXAM: no rashes or lesions noted Course Vital Signs: Vital signs: Vital Signs Temperature 98.4 F 05/21/23 18:32 Pulse Rate 103 H 05/22/23 04:30 Respiratory Rate 18 05/22/23 06:31 Blood Pressure 119/93 05/22/23 04:30 Pulse Oximetry 98 05/22/23 06:31 Oxygen Delivery Me thod Room Air 05/22/23 03:10 MDM - General Adult Medical Decision Making Initial evaluation no active bleeding wound repacked with saline soaked gauze and is stable. I talked to cancer center treatment of [place] however the they are unaware of his surgical issues and are basically only dealing with experimental and medical management and potential alternative treatment options. He had seen Dr. Casey at [place] we contacted the on-call doctor for him they did not feel at this time. They had much to offer. I did discuss with Dr. Morrow, he is well aware the patient that the wound does have a communication with the pharynx and there is an anterior wound that is also tunneled. We reviewed the PET scan that was done recently and there is tumor encasing some of the vessels in the neck. None of the bleeding is reported to be pulsatile to stop now we will transfuse 1 unit. I did talk to the hospitalist at [facility] they have agreed to accept the patient and they will consult vascular and interventional radiology as needed. 05/22/2023 5:26 AM This patient is awaiting a bed at [facility]. He has been here now 18 hours and 30 minutes. Just after 4 AM, the patient awoke with hemorrhage from his neck wound. Bleeding was substantial. He began to cough up blood as well. The wound was packed with Surgifoam, soaked with TXA, and pressure was applied. He was given desmopressin. Hemorrhage has resolved now. Called to consult wound care/chest surgery, as he knows the patient. Upon surgery arrival, pressure was taken off the wound, and gauze were removed. Hemorrhage had stopped. 2 units of trauma blood had been ordered to infuse when hemorrhage started. They are going now. Currently blood pressure 128/76, heart rate 110, saturations 95% on room air. The patient is awake and talking. Staff reached out to [facility] about bed availability. They say that they are still on a wait list. We will call to update surgical team in a bit. 0622: Dressing is intact. No recurrent hemorrhage at this point. He is awake and talking. Blood pressure is 117/73, heart rate 90, saturations 96% on room air. We have spoken with [facility], they are in agreement that the patient should be transferred emergently. He will go to the ER where evaluation can continue with interventional radiology, ENT, etc. We have an accepting ER counterpart physician. Weather permitting the patient will go by her transfer, if weather does not permit, ground transfer will be second choice. 05/22/2023 7:31 AM Assumed care at change of shift patient stable at this time is completed 2 more units of packed red blood cells. They have excepted the patient year to year he is stable at this time logistics have . There is been no further bleeding. Been arranged for [place] to the airport and then to [place] via fixed wing. Patient has been treated with topically with thrombin in the wound cavity and given IV TXA. Medical Records I reviewed the patient's medical records. Lab Data I reviewed the patient's lab results. 05/21/23 21:21 05/21/23 12:22 Laboratory Results WBC 11.25 10^3/uL (3.29-11.43) 05/21/23 21: RBC 2.68 10^6/uL (3.85-5.65) L 05/21/23 21:21 Hgb 8.00 g/dL (11.27-16.99) L 05/21/23 21: Hct 23.9 % (37-53) L 05/21/23 21: MCV 89.2 fl (82-101) D 05/21/23 21:21 MCH 29.9 pg (27-33) 05/21/23 21: MCHC 33.5 g/dL (30-55) D 05/21/23 21: RDW 15.9 % (12.1-15.1) H 05/21/23 21:21 Plt Count 349 10^3/cmm (157-399) 05/21/23 21:21 MPV 9.2 fL (7.4-10.4) 05/21/23 21: Neut % (Auto) 89.1 % 05/21/23 21: Lymph % (Auto) 3.2 % 05/21/23 21:21 [place] % (Auto) 6.3 % 05/21/23 21:21 Eos % (Auto) 0.6 % 05/21/23 21:21 Baso % (Auto) 0.4 % 05/21/23 21:21 Neut # (Auto) 10.03 10^3/uL (1.8-7.7) H 05/21/23 21:21 Lymph # (Auto) 0.4 10^3/uL (0.8-4.8) L 05/21/23 21:21 [place] # (Auto) 0.7 10^3/uL (0.2-0.9) 05/21/23 21:21 Eos # (Auto) 0.1 10^3/uL (0.0-0.8) 05/21/23 21:21 Baso # (Auto) 0.0 10^3/uL (0.0-0.1) 05/21/23 21:21 Nucleated RBC % (auto) 0 % 05/21/23 21: Nucleated RBCs # 0.0 /100WBC 05/21/23 21:21 Sodium 133 mmol/L (136-145) L 05/21/23 12:22 Potassium 3.3 mmol/L (3.5-5.1) L 05/21/23 12:22 Chloride 94 mmol/L (98-107) L 05/21/23 12:22 Carbon Dioxide 29 mmol/L (22-29) 05/21/23 12:22 Anion Gap 13.3 (5-19) 05/21/23 12:22 BUN 6 mg/dL (6-20) 05/21/23 12:22 Creatinine 0.6 mg/dL (0.7-1.2) L 05/21/23 12:22 GFR Calculation 151.6 mL/min (90-130) H 05/21/23 12:22 Glucose 101 mg/dL (65-115) 05/21/23 12:22 Calculated Osmolality 274 mOsm/kg (285-295) L 05/21/23 12:22 Calcium 9.2 mg/dL (8.5-10.5) 05/21/23 12:22 Total Bilirubin 0.2 mg/dL (0.15-1.2) 05/21/23 12:22 AST 21 U/L (0-40) 05/21/23 12:22 ALT 18 U/L (0-41) 05/21/23 12:22 Alkaline Phosphatase 96 U/L (40-130) 05/21/23 12:22 Total Protein 6.2 g/dL (6.6-8.7) L 05/21/23 12:22 Albumin 2.9 g/dL (3.5-5.2) L 05/21/23 12:22 Globulin 3.3 g/dL (1.3-4.6) 05/21/23 12:22 Blood Type O Positive 05/21/23 13:52 Rho(D) Type Positive 05/21/23 13:52 Antibody Screen Negative 05/21/23 13:52 Crossmatch See Detail 05/21/23 13:52 Discharge Plan Discharge Patient Disposition: Xfer Short-Term Hosp Clinical Impression: Cancer of lateral margin of anterior two-thirds of tongue, Hemorrhage from wound, Antineoplastic chemotherapy induced anemia, Secondary lung cancer Condition: Serious Referrals: Sabiha Baeza FNP [Primary Care Provider] - Coding Level of Care Code ED Cut Off Tender Glass for Chg Fwd Documented by User: Aamir Blevins DO 05/22/23 06:24 HPI - General Adult General: Chief complaint: Airway/Esophagus Foreign Body Stated complaint: NECK WOUND DEHISCING Time Seen by Provider: 05/21/23 11:58 PFSH ED PFSH: Medical History Primary tongue squamous cell carcinoma Surgical History Hx of neck surgery (12/24/21) Bilateral neck exploration Port-A-Cath in place Status post insertion of percutaneous endoscopic gastrostomy (PEG) tube Status post partial glossectomy (12/23/21) Partial glossectomy with bilateral neck dissection, left ALT flap, and tracheostomy Family History Grandfather Throat cancer Cancer Family/Other Cancer Maternal aunt Denies family history of Diabetes CAD (coronary artery disease) Clotting disorder Dementia Hyperlipidemia Psychiatric illness Chronic kidney disease (CKD) Suicide Anesthesia complication Bleeding disorder Lung disease Hypertension Stroke Social History Smoking and tobacco/nicotine status: never used tobacco/nicotine Alcohol intake: never Household members: spouse and children Marital status: Number of children: 2 Current occupational status: employed Current occupation: construction Current gender 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 He has been here now 18 hours and 30 minutes. Just after 4 AM, the patient awoke with hemorrhage from his neck wound. Bleeding was substantial. He began to cough up blood as well. The wound was packed with Surgifoam, soaked with TXA, and pressure was applied. He was given desmopressin. Hemorrhage has resolved now. Called to consult wound care/chest surgery, as he knows the patient. Upon surgery arrival, pressure was taken off the wound, and gauze were removed. Hemorrhage had stopped. 2 units of trauma blood had been ordered to infuse when hemorrhage started. They are going now. Currently blood pressure 128/76, heart rate 110, saturations 95% on room air. The patient is awake and talking. Staff reached out to [facility] about bed availability. They say that they are still on a wait list. We will call to update surgical team in a bit. 0622: Dressing is intact. No recurrent hemorrhage at this point. He is awake and talking. Blood pressure is 117/73, heart rate 90, saturations 96% on room air. We have spoken with [facility], they are in agreement that the patient should be transferred emergently. He will go to the ER where evaluation can continue with interventional radiology, ENT, etc. We have an accepting ER counterpart physician. Weather permitting the patient will go by her transfer, if weather does not permit, ground transfer will be second choice. Lab Data 05/21/23 21:21 05/21/23 12:22 Laboratory Results WBC 11.25 10^3/uL (3.29-11.43) 05/21/23 21:21 RBC 2.68 10^6/uL (3.85-5.65) L 05/21/23 21:21 Hgb 8.00 g/dL (11.27-16.99) L 05/21/23 21: Hct 23.9 % (37-53) L 05/21/23 21: MCV 89.2 fl (82-101) D 05/21/23 21:21 MCH 29.9 pg (27-33) 05/21/23 21: MCHC 33.5 g/dL (30-55) D 05/21/23 21:21 RDW 15.9 % (12.1-15.1) H 05/21/23 21:21 Plt Count 349 10^3/cmm (157-399) 05/21/23 21:21 MPV 9.2 fL (7.4-10.4) 05/21/23 21:21 Neut % (Auto) 89.1 % 05/21/23 21:21 Lymph % (Auto) 3.2 % 05/21/23 21:21 [place] % (Auto) 6.3 % 05/21/23 21:21 Eos % (Auto) 0.6 % 05/21/23 21:21 Baso % (Auto) 0.4 % 05/21/23 21:21 Neut # (Auto) 10.03 10^3/uL (1.8-7.7) H 05/21/23 21:21 Lymph # (Auto) 0.4 10^3/uL (0.8-4.8) L 05/21/23 21:21 [place] # (Auto) 0.7 10^3/uL (0.2-0.9) 05/21/23 21:21 Eos # (Auto) 0.1 10^3/uL (0.0-0.8) 05/21/23 21:21 Baso # (Auto) 0.0 10^3/uL (0.0-0.1) 05/21/23 21:21 Nucleated RBC % (auto) 0 % 05/21/23 21:21 Nucleated RBCs # 0.0 /100WBC 05/21/23 21:21 Sodium 133 mmol/L (136-145) L 05/21/23 12:22 Potassium 3.3 mmol/L (3.5-5.1) L 05/21/23 12:22 Chloride 94 mmol/L (98-107) L 05/21/23 12:22 Carbon Dioxide 29 mmol/L (22-29) 05/21/23 12:22 Anion Gap 13.3 (5-19) 05/21/23 12:22 BUN 6 mg/dL (6-20) 05/21/23 12:22 Creatinine 0.6 mg/dL (0.7-1.2) L 05/21/23 12:22 GFR Calculation 151.6 mL/min (90-130) H 05/21/23 12:22 Glucose 101 mg/dL (65-115) 05/21/23 12:22 Calculated Osmolality 274 mOsm/kg (285-295) L 05/21/23 12:22 Calcium 9.2 mg/dL (8.5-10.5) 05/21/23 12:22 Total Bilirubin 0.2 mg/dL (0.15-1.2) 05/21/23 12:22 AST 21 U/L (0-40) 05/21/23 12:22 ALT 18 U/L (0-41) 05/21/23 12:22 Alkaline Phosphatase 96 U/L (40-130) 05/21/23 12:22 Total Protein 6.2 g/dL (6.6-8.7) L 05/21/23 12:22 Albumin 2.9 g/dL (3.5-5.2) L 05/21/23 12:22 Globulin 3.3 g/dL (1.3-4.6) 05/21/23 12:22 Blood Type O Positive 05/21/23 13:52 Rho(D) Type Positive 05/21/23 13:52 Antibody Screen Negative 05/21/23 13:52 Crossmatch See Detail 05/21/23 13:52 No radiology studies performed this visit Discharge Plan Discharge Patient Disposition: Xfer Short-Term Hosp Clinical Impression: Cancer of lateral margin of anterior two-thirds of tongue, Hemorrhage from wound, Antineoplastic chemotherapy induced anemia, Secondary lung cancer Condition: Serious Referrals: Sabiha Baeza FNP [Primary Care Provider] - Coding Level of Care Code ED Cut Off Tender Glass for Cintia Lewis
--- NOTE | 2023-05-21 13:08 | PC.PHAR ---
pts' states many of the medications have been discontinued. updated on the chart 05/21/23
[2023-05-21] MEDS: HYDROmorphone 1 mg/mL INJ 1 mL IVP (15:05)
--- NOTE | 2023-05-21 20:27 | PC.NURSE ---
Pt. placed in hospital bed due to the possibility of transfer being tomorrow. Pt. room is cleaned and patient has bedside table, call light and suction at bedside
[2023-05-21] MEDS: fentaNYL 25 mcg Patch 1 PATCH TRANSDERMA (21:09)
[2023-05-21 21:36] LABS: Basophils % 0.4 %; Eosinophils # 0.1 10^3/uL (0.0-0.8); Eosinophils % 0.6 %; Hematocrit 23.9 % (37-53); Lymphocytes # 0.4 10^3/uL (0.8-4.8); Lymphocytes % 3.2 %; Mean Corpuscular HGB Conc 33.5 g/dL (30-55); Mean Corpuscular Hemoglobin 29.9 pg (27-33); Mean Corpuscular Volume 89.2 fl (82-101); Mean Platelet Volume 9.2 fL (7.4-10.4); Monocytes # 0.7 10^3/uL (0.2-0.9); Monocytes % 6.3 %; Neutrophils # 10.03 10^3/uL (1.8-7.7); Neutrophils % 89.1 %; Nucleated Red Blood Cells % 0 %; Platelet Count 349 10^3/cmm (157-399); Red Blood Count 2.68 10^6/uL (3.85-5.65); Red Cell Distribution Width 15.9 % (12.1-15.1); White Blood Count 11.25 10^3/uL (3.29-11.43)
[2023-05-22] VITALS (12 sets, daily range): BP systolic 113–125; BP diastolic 68–93; PULSE 86–124; RESP 14–18; O2SAT 94–98
--- NOTE | 2023-05-22 01:08 | PC.NURSE ---
Pt. resting in bed with eyes closed and computer on lap.
[2023-05-22] MEDS: tranexamic acid 1,000 mg/10mL SDV 1000 MG IRRIGATION (04:12)
[2023-05-22] MEDS: HYDROmorphone 1 mg/mL INJ 1 mL IVP ×4 (04:25→08:07)
[2023-05-22] MEDS: ondansetron 2 mg/ML SDV 2 mL 4 MG IVP (04:25)
[2023-05-22] MEDS: desmopressin 4 mcg/mL INJ SUBCUT (04:35)
--- NOTE | 2023-05-22 04:50 | PC.NURSE ---
Emergency blood released from blood bank and started by West Brice RN. Witnesses to infusion Pippa Harper and myself. TAR documentation tab not started
--- NOTE | 2023-05-22 05:27 | PC.NURSE ---
03:52- Pt. woke with wet feeling at right neck wound. Pt.s wound was pushing large amount of blood through and around his gauze. Nurses arrived in room and began holding pressure and Dr. Molina notified. Dr. Molina gave order for desmopressin, TXA and surgacele and surgafoam at bedside. Dr. Molina applied Surgafoam and applied pressure with gauze. Marlena CORREIA took over holding pressure and Dr. molina consulted surgery. Dr. molina ordered 2 units of uncrossed blood. Units of blood hanging together. Dr. Napoles arrived at the ER to evaluate bleeding wound and states that the Surgafoam stopped the bleeding at this time and felt there was nothing more to do at this time. Pt. received pain and nausea medication and bed and room were cleaned. Pt. resting comfortably with pressure bandage taped to wound.
--- NOTE | 2023-05-22 05:30 | PC.NURSE ---
Tar not completed prior to shift change for emergent blood release of unit# [id number] and [id number] started by West Cantu and witnessed by tenzin fowler and myself - anabell fowler. Vitals taken during emergency but not documented in chart. Vital information no longer available in monitor to add to chart. Pt tolerated transfusion without incident. Dayshift Charge nurse Bisi Quintana required to sign blood witness admin d/t other staff members unavailable.
[2023-05-22] MEDS: tranexamic acid 1,000 MG/100 ML PREMIX 600 MG IV (06:13)
== END 2023-05-22 08:35 | disposition short-term general hospital (02) ==
PROVIDERS: Emergency Provider Family Medicine; PCP Nurse Practitioner
DX: C02.3 Malignant neoplasm of anterior two-thirds of tongue, part unspecified (principal); R58 Hemorrhage, not elsewhere classified; D64.81 Anemia due to antineoplastic chemotherapy; C78.00 Secondary malignant neoplasm of unspecified lung
CPT/HCPCS: 36415; 36430; 80053; 85025; 86850; 86900; 86920; 96365; 96372; 96375; 96376; 99291; J1170; J2270; J2405; J2597; P9016

== ENCOUNTER 2023-07-15 10:00 | Oncology outpatient (recurring) (ONCR) | payer BC, SELFPAY ==
[2023-06-21] MEDS: sodium chloride 0.9% 1,000 ML 999 ML IV (13:30)
[2023-06-21 13:53] LABS: Basophils # 0.1 10^3/uL (0.0-0.1); Basophils % 0.7 %; Eosinophils % 0.1 %; Hematocrit 31.6 % (37-53); Lymphocytes # 0.3 10^3/uL (0.8-4.8); Lymphocytes % 3.7 %; Mean Corpuscular HGB Conc 32.3 g/dL (30-55); Mean Corpuscular Hemoglobin 28.7 pg (27-33); Mean Corpuscular Volume 88.8 fl (82-101); Mean Platelet Volume 8.8 fL (7.4-10.4); Monocytes # 0.6 10^3/uL (0.2-0.9); Monocytes % 6.2 %; Neutrophils # 8.03 10^3/uL (1.8-7.7); Neutrophils % 89.1 %; Nucleated Red Blood Cells % 0 %; Platelet Count 809 10^3/cmm (157-399); Red Blood Count 3.56 10^6/uL (3.85-5.65); Red Cell Distribution Width 15.7 % (12.1-15.1); White Blood Count 9.01 10^3/uL (3.29-11.43)
[2023-06-21 14:09] LABS: Alanine Aminotransferase 23 U/L (0-41); Alkaline Phosphatase 173 U/L (40-130); Anion Gap 13.3 (5-19); Aspartate Amino Transferase 18 U/L (0-40); Blood Urea Nitrogen 9 mg/dL (6-20); Calcium 13.2 mg/dL (8.5-10.5); Carbon Dioxide 30 mmol/L (22-29); Chloride 94 mmol/L (98-107); Globulin 4.7 g/dL (1.3-4.6); Glucose 101 mg/dL (65-115); Osmolality Calculated 275 mOsm/kg (285-295); Potassium 4.3 mmol/L (3.5-5.1); Sodium 133 mmol/L (136-145); Total Bilirubin 0.4 mg/dL (0.15-1.2); Total Protein 7.7 g/dL (6.6-8.7)
[2023-06-21 14:51] VITALS: BP 128/88; PULSE 93; O2SAT 95
[2023-06-22] MEDS: sodium chloride 0.9% 1,000 ML 999 ML IV (10:14)
[2023-06-22] MEDS: zoledronic acid 4 MG in sodium chloride 0.9% (100 ml) 100 ML 420 MG IV (10:15)
[2023-06-22 11:57] VITALS: BP 126/84; PULSE 85; RESP 18; TEMP 36.1; O2SAT 95
[2023-06-29 08:58] VITALS: BP 114/68; PULSE 65; RESP 18; TEMP 36.8; O2SAT 95
[2023-06-29 09:21] LABS: Basophils % 0.1 %; Hematocrit 31.7 % (37-53); Lymphocytes # 0.3 10^3/uL (0.8-4.8); Lymphocytes % 2.8 %; Mean Corpuscular HGB Conc 32.5 g/dL (30-55); Mean Corpuscular Hemoglobin 28.4 pg (27-33); Mean Corpuscular Volume 87.3 fl (82-101); Mean Platelet Volume 8.7 fL (7.4-10.4); Monocytes # 0.1 10^3/uL (0.2-0.9); Monocytes % 0.9 %; Neutrophils # 9.96 10^3/uL (1.8-7.7); Neutrophils % 95.7 %; Nucleated Red Blood Cells % 0 %; Platelet Count 679 10^3/cmm (157-399); Red Blood Count 3.63 10^6/uL (3.85-5.65); Red Cell Distribution Width 15.7 % (12.1-15.1)
[2023-06-29 09:48] LABS: Alanine Aminotransferase 16 U/L (0-41); Albumin Level 3.3 g/dL (3.5-5.2); Alkaline Phosphatase 158 U/L (40-130); Anion Gap 13.7 (5-19); Aspartate Amino Transferase 13 U/L (0-40); Blood Urea Nitrogen 9 mg/dL (6-20); Calcium 8.6 mg/dL (8.5-10.5); Carbon Dioxide 27 mmol/L (22-29); Chloride 95 mmol/L (98-107); Globulin 4.7 g/dL (1.3-4.6); Glomerular Filtration Rate 126.9 mL/min (90-130); Glucose 150 mg/dL (65-115); Osmolality Calculated 276 mOsm/kg (285-295); Potassium 3.7 mmol/L (3.5-5.1); Sodium 132 mmol/L (136-145); Total Bilirubin 0.2 mg/dL (0.15-1.2)
[2023-06-29 10:53] VITALS: BMI 17.3
[2023-06-29] MEDS: sodium chloride 0.9% 1,000 ML 800 ML IV (12:03)
[2023-06-29] MEDS: sodium chloride 0.9% 250 ML 75 ML IV (12:03)
[2023-06-29] MEDS: acetaminophen 650 mg/20.3 mL UDC PO (12:06)
[2023-06-29] MEDS: famotidine 20 mg/2 mL INJ IVP (12:12)
[2023-06-29] MEDS: diphenhydrAMINE 50 mg/mL SDV 1mL 25 MG IVP (12:13)
[2023-06-29 15:47] VITALS: BP 113/77; PULSE 81; RESP 17; TEMP 36.9; O2SAT 98
[2023-07-05] MEDS: sodium chloride 0.9% 1,000 ML 999 ML IV (12:15)
[2023-07-05 12:24] LABS: Basophils % 0.2 %; Eosinophils # 0.1 10^3/uL (0.0-0.8); Eosinophils % 0.4 %; Hematocrit 34.8 % (37-53); Lymphocytes # 0.2 10^3/uL (0.8-4.8); Lymphocytes % 1.2 %; Mean Corpuscular HGB Conc 32.8 g/dL (30-55); Mean Corpuscular Hemoglobin 28.1 pg (27-33); Mean Corpuscular Volume 85.9 fl (82-101); Mean Platelet Volume 9.5 fL (7.4-10.4); Monocytes # 0.1 10^3/uL (0.2-0.9); Monocytes % 0.8 %; Neutrophils # 12.25 10^3/uL (1.8-7.7); Neutrophils % 96.4 %; Nucleated Red Blood Cells % 0 %; Platelet Count 525 10^3/cmm (157-399); Red Blood Count 4.05 10^6/uL (3.85-5.65); Red Cell Distribution Width 15.5 % (12.1-15.1); White Blood Count 12.71 10^3/uL (3.29-11.43)
[2023-07-05 12:37] LABS: Alanine Aminotransferase 25 U/L (0-41); Albumin Level 3.2 g/dL (3.5-5.2); Alkaline Phosphatase 168 U/L (40-130); Anion Gap 11.1 (5-19); Aspartate Amino Transferase 21 U/L (0-40); Blood Urea Nitrogen 9 mg/dL (6-20); Calcium 7.8 mg/dL (8.5-10.5); Carbon Dioxide 26 mmol/L (22-29); Chloride 97 mmol/L (98-107); Glomerular Filtration Rate 187.1 mL/min (90-130); Glucose 99 mg/dL (65-115); Osmolality Calculated 271 mOsm/kg (285-295); Potassium 3.1 mmol/L (3.5-5.1); Sodium 131 mmol/L (136-145); Total Bilirubin 0.5 mg/dL (0.15-1.2); Total Protein 7.2 g/dL (6.6-8.7)
[2023-07-05 13:29] VITALS: BP 107/70; PULSE 77; TEMP 36.1
[2023-07-06 10:39] VITALS: BP 119/73; PULSE 66; RESP 16; TEMP 36.7; O2SAT 94
[2023-07-06] MEDS: sodium chlor 0.9% + KCl 40 mEq 40 MEQ/1,000 ML BAG 250 MEQ IV (10:50)
[2023-07-06 11:01] VITALS: BMI 16.6
[2023-07-06] MEDS: acetaminophen 325 mg Tablet 650 MG PO (11:53)
[2023-07-06] MEDS: famotidine 20 mg/2 mL INJ IVP (12:01)
[2023-07-06] MEDS: ondansetron 2 mg/ML SDV 2 mL 8 MG IVP (12:07)
[2023-07-06] MEDS: diphenhydrAMINE 50 mg/mL SDV 1mL 25 MG IVP (12:16)
[2023-07-06] MEDS: fosaprepitant 150 MG in sodium chloride 0.9% 150 ML 300 MG IV (13:27)
[2023-07-06] MEDS: sodium chloride 0.9% 250 ML 75 ML IV (13:27)
[2023-07-06 15:51] VITALS: PULSE 87; RESP 18; O2SAT 94
[2023-07-06 16:03] VITALS: PULSE 72
[2023-07-06 16:29] VITALS: BP 103/70; PULSE 59; RESP 16; O2SAT 98
[2023-07-13 08:10] VITALS: BP 108/74; PULSE 74; RESP 16; TEMP 36.4; O2SAT 94
[2023-07-13 08:12] VITALS: BMI 15.8
[2023-07-13 08:38] LABS: Basophils % 1.1 %; Hematocrit 30.1 % (37-53); Lymphocytes # 0.2 10^3/uL (0.8-4.8); Lymphocytes % 8.6 %; Mean Corpuscular HGB Conc 34.2 g/dL (30-55); Mean Corpuscular Hemoglobin 28.6 pg (27-33); Mean Corpuscular Volume 83.6 fl (82-101); Monocytes # 0.1 10^3/uL (0.2-0.9); Monocytes % 5.4 %; Neutrophils # 1.57 10^3/uL (1.8-7.7); Neutrophils % 84.4 %; Nucleated Red Blood Cells % 0 %; Platelet Count 301 10^3/cmm (157-399); Red Cell Distribution Width 16.1 % (12.1-15.1); White Blood Count 1.86 10^3/uL (3.29-11.43)
[2023-07-13 08:57] LABS: Alanine Aminotransferase 27 U/L (0-41); Albumin Level 3.2 g/dL (3.5-5.2); Alkaline Phosphatase 203 U/L (40-130); Aspartate Amino Transferase 20 U/L (0-40); Blood Urea Nitrogen 8 mg/dL (6-20); Calcium 7.9 mg/dL (8.5-10.5); Carbon Dioxide 25 mmol/L (22-29); Chloride 97 mmol/L (98-107); Globulin 3.1 g/dL (1.3-4.6); Glomerular Filtration Rate 242.1 mL/min (90-130); Glucose 138 mg/dL (65-115); Osmolality Calculated 275 mOsm/kg (285-295); Sodium 132 mmol/L (136-145); Total Bilirubin 0.4 mg/dL (0.15-1.2); Total Protein 6.3 g/dL (6.6-8.7)
[2023-07-13] MEDS: sodium chloride 0.9% 250 ML 75 ML IV (10:38)
[2023-07-13] MEDS: diphenhydrAMINE 50 mg/mL SDV 1mL 25 MG IVP (10:41)
[2023-07-13] MEDS: acetaminophen 325 mg Tablet 650 MG PO (10:41)
[2023-07-13] MEDS: famotidine 20 mg/2 mL INJ IVP (10:45)
[2023-07-13] MEDS: sodium chloride 0.9% 1,000 ML 999 ML IV (11:31)
[2023-07-13 12:48] VITALS: BP 110/70; PULSE 78; RESP 15; TEMP 36.6; O2SAT 99
[2023-07-15] MEDS: ondansetron 2 mg/ML SDV 2 mL 8 MG IVP (10:31)
[2023-07-15] MEDS: sodium chloride 0.9% 1,000 ML 999 ML IV (10:31)
== END 2023-07-17 23:59 | disposition home or self-care (01) ==
PROVIDERS: Nurse Practitioner Family; PCP Nurse Practitioner; Visit Provider Internal Medicine Medical Oncology
DX: R11.10 Vomiting, unspecified; T45.1X5A Adverse effect of antineoplastic and immunosuppressive drugs, initial encounter; Z53.9 Procedure and treatment not carried out, unspecified reason
CPT/HCPCS: 36415; 80053; 85025; 86850; 86900; 94640; 96360; 96365; 96366; 96367; 96374; 96375; 96413; 96415; 96417; J1100; J1200; J1453; J1642; J2405; J3489; J3490; J7030; J7050; J7608; J9055; J9171

== ENCOUNTER 2023-07-22 09:31 | Oncology outpatient (recurring) (ONCR) | payer BC, SELFPAY ==
[2023-07-20 09:26] VITALS: BP 104/70; PULSE 74; RESP 16; TEMP 36.7; O2SAT 83; BMI 15.6
[2023-07-20 09:33] VITALS: O2SAT 92
[2023-07-20 09:55] LABS: Basophils % 0.4 %; Hematocrit 30.1 % (37-53); Lymphocytes # 0.2 10^3/uL (0.8-4.8); Mean Corpuscular HGB Conc 34.6 g/dL (30-55); Mean Corpuscular Hemoglobin 28.4 pg (27-33); Mean Corpuscular Volume 82.2 fl (82-101); Mean Platelet Volume 8.4 fL (7.4-10.4); Monocytes # 0.3 10^3/uL (0.2-0.9); Monocytes % 4.1 %; Neutrophils # 7.08 10^3/uL (1.8-7.7); Neutrophils % 91.7 %; Nucleated Red Blood Cells % 0 %; Platelet Count 386 10^3/cmm (157-399); Red Blood Count 3.66 10^6/uL (3.85-5.65); Red Cell Distribution Width 16.5 % (12.1-15.1); White Blood Count 7.72 10^3/uL (3.29-11.43)
[2023-07-20 10:13] LABS: Alanine Aminotransferase 24 U/L (0-41); Albumin Level 3.1 g/dL (3.5-5.2); Alkaline Phosphatase 157 U/L (40-130); Anion Gap 13.7 (5-19); Aspartate Amino Transferase 21 U/L (0-40); Blood Urea Nitrogen 9 mg/dL (6-20); Calcium 8.6 mg/dL (8.5-10.5); Carbon Dioxide 27 mmol/L (22-29); Chloride 89 mmol/L (98-107); Globulin 3.6 g/dL (1.3-4.6); Glomerular Filtration Rate 242.1 mL/min (90-130); Glucose 149 mg/dL (65-115); Osmolality Calculated 263 mOsm/kg (285-295); Potassium 3.7 mmol/L (3.5-5.1); Sodium 126 mmol/L (136-145); Total Bilirubin 0.4 mg/dL (0.15-1.2); Total Protein 6.7 g/dL (6.6-8.7)
[2023-07-20] MEDS: sodium chloride 0.9% 1,000 ML 999 ML IV (12:26)
[2023-07-20] MEDS: levofloxacin-dextrose 5 % 750 MG/150 ML PREMIX 100 MG IV (12:27)
[2023-07-20 14:16] VITALS: BP 95/62; PULSE 70; RESP 16; TEMP 36.3; O2SAT 97
[2023-07-20 16:51] LABS: Thyroid Stimulating Hormone 50.84 uIU/mL (0.27-4.20)
[2023-07-21] MEDS: sodium chloride 0.9% 1,000 ML 999 ML IV (11:21)
[2023-07-21] MEDS: levofloxacin-dextrose 5 % 750 MG/150 ML PREMIX 100 MG IV (11:22)
[2023-07-21 11:40] VITALS: BP 113/66; PULSE 87; RESP 16; TEMP 36.3; O2SAT 94
[2023-07-21 12:55] VITALS: BP 90/61; PULSE 88; RESP 14; TEMP 36.4; O2SAT 98
[2023-07-22] MEDS: sodium chloride 0.9% 1,000 ML 999 ML IV (09:53)
[2023-07-22] MEDS: levofloxacin-dextrose 5 % 750 MG/150 ML PREMIX 100 MG IV (09:54)
[2023-07-22 11:09] VITALS: BP 112/71; PULSE 91; O2SAT 99
== END 2023-07-28 23:59 | disposition home or self-care (01) ==
PROVIDERS: Nurse Practitioner Family; PCP Nurse Practitioner; Visit Provider Internal Medicine Medical Oncology
DX: C02.3 Malignant neoplasm of anterior two-thirds of tongue, part unspecified; Z53.9 Procedure and treatment not carried out, unspecified reason
CPT/HCPCS: 71046; 80053; 84443; 85025; 96365; 96366; J1642; J1956; J7030

== ENCOUNTER 2023-07-25 11:53 | Emergency (ER) | payer BC, MEDICAID, SELFPAY ==
[2023-07-25] VITALS (128 sets, daily range): BP systolic 90–131; BP diastolic 60–95; PULSE 94–123; RESP 12–36; TEMP 36.4; O2SAT 62–97; BMI 16.1
--- NOTE | 2023-07-25 12:01 | XRR_ITS ---
PROCEDURE INFORMATION: Exam: XR Chest Exam date and time: 07/25/2023 12:19 PM Age: 37 years old Clinical indication: Shortness of breath; Patient HX: HX of neck and tongue cancer; Additional info: SOB TECHNIQUE: Imaging protocol: Radiologic exam of the chest. Views: 1 view. COMPARISON: CR XR chest 2V* [id number] 07/20/2023 11:43 AM FINDINGS: Tubes, catheters and devices: Left chest wall port is in satisfactory location with tip overlying the superior vena cava. G-tube in place. Lungs: Increased multifocal nodular bilateral pulmonary opacities, some of which appear cavitary. Pleural spaces: No sizable pleural effusion or pneumothorax. Heart/Mediastinum: No cardiomegaly. Bones/joints: Unremarkable. XR/XR chest 1V portable [id number] IMPRESSION: Increased multifocal nodular bilateral pulmonary opacities, some of which appear cavitary. Findings are concerning for worsening metastatic disease versus infection.
--- NOTE | 2023-07-25 12:01 | ECG_ITS ---
[facility] Test Date: 2023-07-25 Pat Name: Gautam Elise Department: Room: Gender: Male Blower Room Attendant: : 1985 Requested By: Jack Smiley Order Number: [id number] Anneliese MD: Anish Khanna M.D. Measurements Intervals Maybeury Rate: 119 P: 55 RI: 155 QRS: 15 QRSD: 98 T: 60 QT: 339 QTc: 478 Interpretive Statements SINUS TACHYCARDIA INCOMPLETE RIGHT BUNDLE BRANCH BLOCK [90+ ms QRS DURATION, TERMINAL R IN V1/V2, 40+ ms S IN I/aVL/V4/V5/V6] SEPTAL MYOCARDIAL INFARCTION , OF INDETERMINATE AGE [40+ ms Q WAVE IN V1/V2] No previous ECG available for comparison Electronically Signed On 07-25-2023 15:28:21 TIP MENDER by Anish Khanna M.D. [email or web address] behavioral health [email or web address] Access Networkbrecksville va [facility].[employer]/store/[id number]
[2023-07-25 12:10] LABS: ABG PCO2 47.2 mmHg (35-45); ABG PH Result 7.39 (7.35-7.45); Arterial Blood Gas Hematocrit 32.1 % (42-52); Base Excess ABG 3.3 mmol/L (-2.0-2.0); Blood Gas Allen Test Pos; Blood Gas Operator Identificat WALCI; Blood Gas Sample Site Radial, right; Blood Gas Sample Type Arterial; HCO3 ABG 28.8 mmol/L (22-26); HGB O2 Sat 83.5 % (95-100); Methemoglobin 0.5 % (0.4-1.5); Oxygen Device NRB; PO2 ABG 49.5 mmHg (80.0-100.0); PO2 FiO2 Ratio Arterial Blood 0; Total Hemoglobin 10.5 g/dL (14-18)
--- NOTE | 2023-07-25 12:49 | XR_ITS ---
WS: [id number] XR chest 1V portable [id number] REASON FOR EXAM: Post PICC insertion FINDINGS: Chemotherapy infusion port of the left chest with trans left subclavian catheter with the tip in the distal superior vena cava. Extensive pulmonary parenchymal opacities in both lungs. Current left arm PICC line placement with the tip in the distal superior vena cava in good position f or use. IMPRESSION: Proper left arm PICC line placement as above. Position of PICC line confirmed with medical imaging technologist over the phone at 1:40 p.m.
--- NOTE | 2023-07-25 12:52 | ED_ITS ---
HPI - SOB/Dyspnea 2 General: Chief Complaint: Shortness of Breath/Dyspnea Stated Complaint: sob Time Seen by Provider: 07/25/23 12:01 Source: patient and EMS Mode of arrival: EMS Limitations: no limitations History of Present Illness: HPI Narrative: 37-year-old male with history of throat cancer along with secondary lung cancer she has had increasing shortness of breath over the last week he has diagnosed pneumonia is been on antibiotics but states that today his dyspnea got much worse he is on a nonrebreather here and hypotensive. States that he has had much worsening dyspnea today denies any vomiting or diarrhea. Associated symptoms: Deny abdominal pain, chest pain, fever(s), nausea or vomiting Review of Systems 2 Const: Reports: fatigue; Denies: fever(s) or chills Eyes: Denies: blurry vision or eye discomfort ENMT: Denies: throat pain or dental pain Card: Denies: chest pain Resp: Reports: dyspnea and non-productive cough GI: Denies: abdominal pain, nausea, vomiting or diarrhea : Denies: dysuria Musc: Denies: neck pain or back pain Skin/Breast: Denies: rash Neuro: Denies: headache(s) PFSH ED 2 PFSH: Medical History Primary tongue squamous cell carcinoma Surgical History Port-A-Cath in place Hx of neck surgery (12/24/21) Bilateral neck exploration Status post partial glossectomy (12/23/21) Partial glossectomy with bilateral neck dissection, left ALT flap, and tracheostomy Status post insertion of percutaneous endoscopic gastrostomy (PEG) tube Family History Grandfather Throat cancer Cancer Family/Other Cancer Maternal aunt Denies family history of Diabetes CAD (coronary artery disease) Clotting disorder Dementia Hyperlipidemia Psychiatric illness Chronic kidney disease (CKD) Suicide Anesthesia complication Bleeding disorder Lung disease Hypertension Stroke Social History Smoking and tobacco/nicotine status: never used tobacco/nicotine Alcohol intake: never Household members: spouse and children Marital status: Number of children: 2 Current occupational status: employed Current occupation: construction Current gender identity: Male Physical Exam 2 Const: COMMON NORMALS: patient oriented x3 GENERAL APPEARANCE: in distress and ill appearing HENMT: COMMON NORMALS: normocephalic and atraumatic HEAD & SCALP: n ormocephalic and atraumatic Eye: COMMON NORMALS: Equal, round and reactive pupils present and EOMs intact bilaterally PUPIL: Yes Equal, round and reactive pupils present Neck/C-Spine: COMMON NORMALS: full ROM and supple Chest: COMMONS NORMALS: normal inspection of the chest and normal palpation of entire chest wall Resp: EFFORT & INSPECTION: Yes respiratory distress and Yes labored A USCULTATION: rales Cardio: COMMON NORMALS: regular rhythm and No murmurs present (Cardio) R ATE: tachycardic RHYTHM: regular rhythm Extremity: COMMON NORMALS: normal to inspection and full ROM Neuro: COMMON NORMALS: patient oriented x3, moves all extremities and no focal motor deficits Psych: COMMON NORMALS: mental status grossly normal, Normal thought process present and cooperative THOUGHT PROCESS: Normal thought process present Skin: COMMON NORMALS: no rashes or lesions noted and no wounds GENERAL SKIN EXAM: no rashes or lesions noted Procedures Intubation Time out performed: Yes sedative: Etomidate Mg Given: 20 paralytic: Vecuronium Mg Given: 7 Laryngoscope: Hernando ET Tube Size: 8 ET Tube Uncuffed: No Tube Secured Depth (cm): 24 Tube Secured Location: lips Tube Placement Confirmation: visualized tube passing through cords, equal breath sounds bilaterally, no breath sounds over epigastrium and confirmation by capnometry Patient Tolerated Procedure: well Intubation Complications: none Course 2 Vital Signs: Vital signs: Vital Signs Temperature 97.6 F 07/25/23 11:59 Pulse Rate 99 07/25/23 21:40 Respiratory Rate 16 07/25/23 19:45 Blood Pressure 101/64 07/25/23 21:40 Pulse Oximetry 92 07/25/23 21:40 Oxygen Delivery Me thod Non-Rebreather 07/25/23 13:46 Oxygen Flow Rate 15 07/25/23 13:46 Fraction of Inspir ed Oxygen 100 07/25/23 19:45 MDM - SOB/Dyspnea Medical Decision Making Patient presents here with severe bilateral pneumonia patient was intubated here in the ER he had a PICC line placed he is on IV antibiotics he did receive sepsis fluids he is on Levophed as well. Have spoken to the hospitalist here who recommended transfer for higher level of care due to his history of his neck wound has had no bleeding from his neck wound here I have attempted multiple facilities was able to get patient on a wait list at [facility] at this time with accepting physician Dr. Youssef Medical Records I reviewed the patient's medical records. Lab Data I reviewed the patient's lab results. 07/25/23 12:48 07/25/23 12:48 Labs/Radiology: Radiology Impressions Chest CTA 07/25/23 13:14 IMPRESSION: 1. Study is positive for a pulmonary embolus or thrombus in the right lower lobe. 2. Severe diffuse bilateral pneumonia with multiple regions of cavitation and pulmonary abscess formation as described. 3. Small left and trace right pleural effusions. ADDENDUM: 07/25/23 [id number] THIS REPORT CONTAINS FINDINGS THAT MAY BE CRITICAL TO PATIENT CARE. The findings were verbally communicated via telephone conference with PAM JAMES at 5:52 PM PRODUCT SAFETY TECHNICIAN on 07/25/2023. The findings were acknowledged and understood. Chest X-Ray 07/25/23 18:25 IMPRESSION: 1. Stable severe pneumonia with cavitations/pulmonary abscesses. Laboratory Results WBC 7.76 10^3/uL (3.29-11.43) 07/25/23 12:48 RBC 3.90 10^6/uL (3.85-5.65) 07/25/23 12:48 Hgb 10.80 g/dL (11.27-16.99) L 07/25/23 12:48 Hct 32.6 % (37-53) L 07/25/23 12:48 MCV 83.6 fl (82-101) 07/25/23 12:48 MCH 27.7 pg (27-33) 07/25/23 12:48 MCHC 33.1 g/dL (30-55) 07/25/23 12:48 RDW 17.2 % (12.1-15.1) H 07/25/23 12:48 Plt Count 230 10^3/cmm (157-399) 07/25/23 12:48 MPV 8.8 fL (7.4-10.4) 07/25/23 12:48 Neut % (Auto) 95.9 % 07/25/23 12:48 Lymph % (Auto) 1.2 % 07/25/23 12:48 [place] % (Auto) 1.9 % 07/25/23 12:48 Eos % (Auto) 0.0 % 07/25/23 12:48 Baso % (Auto) 0.6 % 07/25/23 12:48 Neut # (Auto) 7.44 10^3/uL (1.8-7.7) 07/25/23 12:48 Lymph # (Auto) 0.1 10^3/uL (0.8-4.8) L 07/25/23 12:48 [place] # (Auto) 0.2 10^3/uL (0.2-0.9) 07/25/23 12:48 Eos # (Auto) 0.0 10^3/uL (0.0-0.8) 07/25/23 12:48 Baso # (Auto) 0.1 10^3/uL (0.0-0.1) 07/25/23 12:48 Nucleated RBC % (auto) 0 % 07/25/23 12:48 Nucleated RBCs # 0.0 /100WBC 07/25/23 12:48 PT 19.20 SECONDS (12.1-14.9) H 07/25/23 12:48 INR 1.56 (0.8-1.2) H 07/25/23 12:48 D-Dimer 3.40 ug/mLFEU (0-0.59) H 07/25/23 12:48 Specimen Type Arterial 07/25/23 21:26 Sample Site Brachial, left 07/25/23 21:26 ABG pH 7.37 (7.35-7.45) 07/25/23 21:26 ABG pCO2 45.7 mmHg (35-45) H 07/25/23 21:26 ABG pO2 63.9 mmHg (80.0-100.0) L 07/25/23 21:26 ABG PO2/FiO2 Ratio 0 07/25/23 21:26 ABG HCO3 26.3 mmol/L (22-26) H 07/25/23 21:26 ABG O2 Saturation 90.4 07/25/23 19:32 ABG Base Excess 0.6 mmol/L (-2.0-2.0) 01/08/24 21:26 Ciro Test N/a 07/25/23 21:26 A-a O2 Gradient 75.2 mmHg (5-10) H 07/25/23 19:32 Hematocrit 32.2 % (42-52) L 07/25/23 21:26 Hgb O2 Saturation 89.3 % (95-100) L 07/25/23 19:32 Carboxyhemoglobin 0.6 %THgb (0.4-20.1) 07/25/23 19:32 Methemoglobin 0.6 % (0.4-1.5) 07/25/23 19:32 Total Hemoglobin 10.6 g/dL (14-18) L 07/25/23 19:32 Sodium 129.0 mmol/L (131-143) L 07/25/23 19:32 Potassium 2.9 mmol/L (3.5-5.0) L 07/25/23 19:32 Glucose 114.0 mg/dL (70-115) 07/25/23 19:32 Ionized Calcium 1.1 mmol/L (1.1-1.4) 07/25/23 19:32 O2 Delivery Device Vent 07/25/23 21:26 O2 Liters/Min 15.0 % 07/25/23 12:00 FiO2 100.0 % 07/25/23 21:26 Tidal Volume 0.45 07/25/23 21:26 PEEP 8.0 cmH20 07/25/23 21:26 Inbound Call Center Representative ID [email or web address] 07/25/23 21:26 Sodium 131 mmol/L (136-145) L 07/25/23 12:48 Potassium 3.3 mmol/L (3.5-5.1) L 07/25/23 12:48 Chloride 90 mmol/L (98-107) L 07/25/23 12:48 Carbon Dioxide 28 mmol/L (22-29) 07/25/23 12:48 Anion Gap 16.3 (5-19) 07/25/23 12:48 BUN 8 mg/dL (6-20) 07/25/23 12:48 Creatinine 0.5 mg/dL (0.7-1.2) L 07/25/23 12:48 GFR Calculation 187.1 mL/min (90-130) H 07/25/23 12:48 Glucose 75 mg/dL (65-115) 07/25/23 12:48 Calculated Osmolality 269 mOsm/kg (285-295) L 07/25/23 12:48 Lactic Acid 4.5 mmol/L (0.5-2.2) H* 07/25/23 12:48 Lactic Acid (Sepsis) 2.1 mmol/L (0.5-2.2) 07/25/23 15:28 Calcium 8.3 mg/dL (8.5-10.5) L 07/25/23 12:48 Total Bilirubin 0.7 mg/dL (0.15-1.2) 07/25/23 12:48 AST 26 U/L (0-40) 07/25/23 12:48 ALT 15 U/L (0-41) 07/25/23 12:48 Alkaline Phosphatase 175 U/L (40-130) H 07/25/23 12:48 NT-Pro-B Natriuret Pep 93 pg/mL (0-125) 07/25/23 12:48 Total Protein 5.6 g/dL (6.6-8.7) L 07/25/23 12:48 Albumin 2.5 g/dL (3.5-5.2) L 07/25/23 12:48 Globulin 3.1 g/dL (1.3-4.6) 07/25/23 12:48 Procalcitonin 1.65 ng/mL (0-0.5) H 07/25/23 12:48 Coronavirus 229E (PCR) Not detected (NOT DETECT) 07/25/23 14:00 Influenza Type A Ag negative (Negative) 07/25/23 21:48 Influenza Type B Ag negative (Negative) 07/25/23 21:48 SARS-CoV-2 (PCR) Not detected (NOT DETECT) 07/25/23 14:00 All radiology interpretation(s) finalized by discharge EKG Data EKG 1: I personally reviewed and interpreted this EKG as follows: EKG Interpretation Date: 07/25/23 EKG interpretation time: 12:06 Interpretation: sinus tach hr [address] or t wave abnormalities qrs 98 qtc 410 Critical Care Time 2 Critical Care Time: Critical Care Time: Yes Total Critical Care Time: 45 Attestation: The high probability of a clinically significant, sudden or life threatening deterioration of the patient's resp system(s) required my full and direct attention, intervention and personal management. The critical care time is as shown. This time is in addition to time spent performing any reported procedures but includes the following: [x] Data and vital sign review and interpretation [x] Patient assessment, examination and intervention [x] Documentation [x] Medication orders and management Discharge Plan Discharge Patient Disposition: Xfer Short-Term Hosp Clinical Impression: Community acquired pneumonia, Acute respiratory failure with hypoxemia Condition: Stable Referrals: Swapnil Jerome MD [Primary Care Provider] - Coding Level of Care Code ED Loss Prevention Operations Manager for Cintia Lewis
[2023-07-25] MEDS: piperacillin-tazobactam 3.375 GM in sodium chloride 0.9% (plus) 50 ML IV (12:53)
--- NOTE | 2023-07-25 13:00 | PC.NURSE ---
Triple lumen PICC placed to left brachial vein. Referred to vascular access nurse due to poor IV access and hypotension. Pt to be admitted to floor. Pt with left subclavian implanted port, but need for multiple IV meds anticipated. Left arm assessed due to mass in throat more predominant on right side. Left brachial vein noted to be 4.0 mm, straight, and apparent best choice for placement. Using sterile technique and MST, left brachial vein accessed x 1 stick. Mid-arm circumference measured 10 cm from left AC 20 cm. Trimmed cath 42 cm with 1.5 cm external length noted. Line secured with stat-lock. Insertion site covered with Biopatch and TSM. CXR shows tip in distal SVC, in good position for use per radiologist. Report given to bedside nurseTresa.
--- NOTE | 2023-07-25 13:03 | PC.PHAR ---
pts verified pts medications-pts states the pt last got cetuximab on 07/13/23 and docetaxel 07/06/23-pts states the fentanyl patch was placed on 07/22/23 and is due to be changed today 07/25/23-pts states the pt is still taking tranexamic acid 650mg daily ext shows last filled 07/04/23 30d/s 650mg bid-notes are made in the pharmacy comments
[2023-07-25 13:07] LABS: INR 1.56 (0.8-1.2)
[2023-07-25 13:13] LABS: Basophils # 0.1 10^3/uL (0.0-0.1); Basophils % 0.6 %; Hematocrit 32.6 % (37-53); Lymphocytes # 0.1 10^3/uL (0.8-4.8); Lymphocytes % 1.2 %; Mean Corpuscular HGB Conc 33.1 g/dL (30-55); Mean Corpuscular Hemoglobin 27.7 pg (27-33); Mean Corpuscular Volume 83.6 fl (82-101); Mean Platelet Volume 8.8 fL (7.4-10.4); Monocytes # 0.2 10^3/uL (0.2-0.9); Monocytes % 1.9 %; Neutrophils # 7.44 10^3/uL (1.8-7.7); Neutrophils % 95.9 %; Nucleated Red Blood Cells % 0 %; Platelet Count 230 10^3/cmm (157-399); Red Cell Distribution Width 17.2 % (12.1-15.1); White Blood Count 7.76 10^3/uL (3.29-11.43)
--- NOTE | 2023-07-25 13:14 | CTR_ITS ---
PROCEDURE INFORMATION: Exam: CTA Chest With Contrast Exam date and time: 07/25/2023 5:04 PM Age: 37 years old Clinical indication: Shortness of breath; Additional info: SOB TECHNIQUE: Imaging protocol: Computed tomographic angiography of the chest with contrast. Exam focused on the arteries. 3D rendering (Not supervised by radiologist): MIP and/or 3D reconstructed images were created by the technologist. Radiation optimization: All CT scans at this facility use at least one of these dose optimization techniques: automated exposure control; mA and/or kV adjustment per patient size (includes targeted exams where dose is matched to clinical indication); or iterative reconstruction. Contrast material: OMNI 350; Contrast volume: 100 ml; Contrast route: INTRAVENOUS (IV); COMPARISON: CT chest abdpel w/*[id number] 28/12/2022 12:46 RADIATION DOSE METRICS: Total DLP (mGy-cm): 259 FINDINGS: Pulmonary arteries: There is a filling defect within a segmental pulmonary artery branch in the posterior right lower lobe. The other artery branches appear patent. Aorta: Unremarkable. No aortic aneurysm. No aortic dissection. Lungs: Diffuse patchy ground-glass opacities throughout both lungs. Dense consolidation in the bilateral central lungs, posterior lower lobes, and lingular segments of the left upper lobe. Large 6.3 cm region of cavitation with a thick irregular wall in the right upper lobe. 4.7 cm cavitation with air-fluid level in the anterior right middle lobe. 3.7 cm cavitation in the right lower lobe. 4.6 cm cavitation with air-fluid level in the left lower lobe. Pleural spaces: Unremarkable. No pneumothorax. No pleural effusion. Heart: The RV/LV ratio is 1.0. No cardiomegaly. No pericardial effusion. Lymph nodes: Unremarkable. No enlarged lymph nodes. Bones/joints: Degenerative changes of the lower thoracic spine with ossification of the anterior longitudinal ligament. No fracture. Soft tissues: Diffuse body wall edema. CT/CT angio chest PE protcl [id number] IMPRESSION: 1. Study is positive for a pulmonary embolus or thrombus in the right lower lobe. 2. Severe diffuse bilateral pneumonia with multiple regions of cavitation and pulmonary abscess formation as described. 3. Small left and trace right pleural effusions.
[2023-07-25 13:24] LABS: Alanine Aminotransferase 15 U/L (0-41); Albumin Level 2.5 g/dL (3.5-5.2); Alkaline Phosphatase 175 U/L (40-130); Anion Gap 16.3 (5-19); Aspartate Amino Transferase 26 U/L (0-40); Blood Urea Nitrogen 8 mg/dL (6-20); Calcium 8.3 mg/dL (8.5-10.5); Carbon Dioxide 28 mmol/L (22-29); Chloride 90 mmol/L (98-107); Globulin 3.1 g/dL (1.3-4.6); Glomerular Filtration Rate 187.1 mL/min (90-130); Glucose 75 mg/dL (65-115); NT Pro B Type Natriuretic Pept 93 pg/mL (0-125); Osmolality Calculated 269 mOsm/kg (285-295); Potassium 3.3 mmol/L (3.5-5.1); Sodium 131 mmol/L (136-145); Total Bilirubin 0.7 mg/dL (0.15-1.2); Total Protein 5.6 g/dL (6.6-8.7)
[2023-07-25 13:27] LABS: Slide Review Slide Review Perform
[2023-07-25 13:30] LABS: Lactic Sepsis W/Reflex 4.5 mmol/L (0.5-2.2)
[2023-07-25] MEDS: vancomycin 1,000 MG in sodium chloride 0.9% 250 ML 250 MG IV (13:56)
[2023-07-25] MEDS: sodium chloride 0.9% 1,000 ML 999 ML IV ×2 (13:57→14:09)
[2023-07-25 14:43] LABS: Reflex Lactate Order REFLEX LACTIC ORDERD
[2023-07-25] MEDS: morphine 4 mg/mL SDV 1 mL IVP (15:40)
[2023-07-25 15:58] LABS: Lactic Acid level (Lactate) 2.1 mmol/L (0.5-2.2)
[2023-07-25 16:05] LABS: Adenovirus Not Detected (NOT DETECT); Chlamydia Pneumoniae Not Detected (NOT DETECT); Coronavirus 229E,HKU1,NL63,OC4 Not Detected (NOT DETECT); Human Metapneumovirus Not Detected (NOT DETECT); Human Rhinovirus/Enterovirus Not Detected (NOT DETECT); Influenza A Not Detected (NOT DETECT); Influenza A H1 Not Detected (NOT DETECT); Influenza A H1-2009 Not Detected (NOT DETECT); Influenza A H3 Not Detected (NOT DETECT); Influenza B Not Detected (NOT DETECT); Mycoplasma Pneumoniae Not Detected (NOT DETECT); Parainfluenza Virus Type 1 Not Detected (NOT DETECT); Parainfluenza Virus Type 2 Not Detected (NOT DETECT); Parainfluenza Virus Type 3 Not Detected (NOT DETECT); Parainfluenza Virus Type 4 Not Detected (NOT DETECT); Respiratory Syncytial Virus A Not Detected (NOT DETECT); Respiratory Syncytial Virus B Not Detected (NOT DETECT); SARS-COV-2 Not Detected (NOT DETECT)
[2023-07-25] MEDS: ondansetron 2 mg/ML SDV 2 mL 4 MG IVP (16:51)
[2023-07-25] MEDS: iohexol 350 mg/mL 500 mL Btl (per mL) IV (17:16)
--- NOTE | 2023-07-25 18:04 | P.CONIM_ITS ---
Providers/Reason For Consult 2 Consulting Physician/Specialty*: Lali Barnard MD/Internal Medicine Reason for Consult*: Medical management during ER stay Requesting Physician: Dr. Jack Smiley Primary Care Provider: Swapnil Jerome MD History of Present Illness History of Present Illness Gautam Elise is a 37 year old male Medications/Allergies Home Medications Medication Instructions Recorded Confirmed Last Taken Type alprazolam 0.5 mg tablet (Xanax) 0.5 mg PO BID PRN anxiety #60 tabs 10/28/22 07/25/23 Unknown Rx famotidine 40 mg/5 mL (8 mg/mL) 2.5 ml PO BID #150 mL 03/30/23 07/25/23 07/25/23 Rx oral suspension levothyroxine 75 mcg tablet 75 mcg PO QAM 05/21/23 07/25/23 07/24/23 History sodium chloride 0.9 % irrigation 1 irrig irrigation DAILY wet to 05/27/23 07/25/23 Unknown Rx solution dry dressing changes #500 mL cetuximab 100 mg/50 mL intravenous 400 mg (200 mL) IV Q7D 28 days 06/22/23 07/25/23 07/13/23 Rx solution cetuximab 100 mg/50 mL intravenous 650 mg (325 mL) IV ONCE 06/22/23 07/25/23 Unknown Rx solution cetuximab 200 mg/100 mL 400 mg (200 mL) IV Q7D 28 days 06/22/23 07/25/23 Unknown Rx intravenous solution docetaxel 20 mg/2 mL (10 mg/mL) 56 mg (5.6 mL) IV Q7D #18 mL 06/22/23 07/25/23 07/06/23 Rx intravenous solution lorazepam 1 mg tablet 0.5 - 1 mg (0.5 - 1 x 1 mg) PO Q6H 06/27/23 07/25/23 Unknown Rx PRN severe nausea #30 tabs ondansetron 4 mg disintegrating 4 mg PO Q6H PRN nausea and 06/27/23 07/25/23 07/25/23 08:00 Rx tablet vomiting #30 tabs prochlorperazine maleate 10 mg 10 mg PO Q6H PRN nausea and 06/27/23 07/25/23 Unknown Rx tablet (Compazine) vomiting #30 tabs doxycycline hyclate 100 mg tablet 100 mg PO BID #60 tabs 06/28/23 07/25/23 07/25/23 Rx nebulizer accessories ([place] #1 ea 07/06/23 07/25/23 Unknown Rx Choice Nebulizer Kit-Adult) fentanyl 25 mcg/hr transdermal 1 patch transdermal Q72H 30 days 07/13/23 07/25/23 07/22/23 Rx patch #10 ea due to be changed to oxycodone 20 mg tablet 20 mg PO Q4H PRN pain 30 days #180 07/13/23 07/25/23 07/25/23 08:00 Rx tabs Portable oxygen concentrator #1 ea 07/20/23 07/25/23 Unknown Rx continuous flow and supplies [employer] Blends See Rx Instructions .Route .COMPLEX 07/25/23 07/25/23 Unknown History acetylcysteine 200 mg/mL (20 %) See Rx Instructions .Route .COMPLEX 07/25/23 07/25/23 07/24/23 History solution dexamethasone 4 mg tablet See Rx Instructions .Route .COMPLEX 07/25/23 07/25/23 07/19/23 History levofloxacin 750 mg tablet See Rx Instructions .Route .COMPLEX 07/25/23 07/25/23 07/24/23 History tranexamic acid 650 mg tablet 650 mg PO DAILY 07/25/23 07/25/23 07/24/23 History Allergies Allergy/AdvReac Type Severity Reaction Status Date / Time No Known Allergies Allergy Verified 07/25/23 12:06 PFSH Acute 2 PFSH: Medical History Primary tongue squamous cell carcinoma Surgical History Port-A-Cath in place Hx of neck surgery (12/24/21) Bilateral neck exploration Status post partial glossectomy (12/23/21) Partial glossectomy with bilateral neck dissection, left ALT flap, and tracheostomy Status post insertion of percutaneous endoscopic gastrostomy (PEG) tube Family History Grandfather Throat cancer Cancer Family/Other Cancer Maternal aunt Denies family history of Diabetes CAD (coronary artery disease) Clotting disorder Dementia Hyperlipidemia Psychiatric illness Chronic kidney disease (CKD) Suicide Anesthesia complication Bleeding disorder Lung disease Hypertension Stroke Social History Smoking and tobacco/nicotine status: never used tobacco/nicotine Alcohol intake: never Household members: spouse and children Marital status: Number of children: 2 Current occupational status: employed Current occupation: construction Current gender identity: Male Vitals/I&O/Wt Last Vital Signs Temp 97.6 F 07/25/23 11:59 Pulse 107 H 07/25/23 17:40 Resp 18 07/25/23 17:35 BP 123/92 07/25/23 17:40 Pulse Ox 81 L 07/25/23 17:40 O2 Del Method Non-Rebreather 07/25/23 13:46 O2 Flow Rate 15 07/25/23 13:46 FiO2 100 07/25/23 14:18 07/25/23 07/25/23 07/25/23 06:59 14:59 22:59 Intake Total 249.8 / 249.8 1250 / 1499.8 Balance 249.8 / 249.8 1250 / 1499.8 Weight last 48 hrs Weight 45.359 kg Data 07/25/23 12:48 07/25/23 12:48 Coding Level of Care Code Acute Code for Chg Fwd
[2023-07-25] MEDS: vecuronium 10 mg SDV 6 MG IVP (18:20)
[2023-07-25] MEDS: etomidate 2 mg/mL INJ SDV 10 mL 20 MG IVP (18:20)
--- NOTE | 2023-07-25 18:25 | XRR_ITS ---
PROCEDURE INFORMATION: Exam: XR Chest Exam date and time: 07/25/2023 6:24 PM Age: 37 years old Clinical indication: Device placement; Ett placement (vent status); Patient HX: Tongue CA; Additional info: Post intubation TECHNIQUE: Imaging protocol: Radiologic exam of the chest. Views: 1 view. COMPARISON: 1. CT angio chest PE protcl [id number] 02/16/2024 17:04 2. CR XR chest 1V portable [id number] 07/25/2023 1:30 PM FINDINGS: Tubes, catheters and devices: Intubation with tip 3.2 cm above the esvin. Left PICC line with tip in the distal SVC. Left Ufbmrc-H-Omdv with tip in the right atrium. Clips in the neck. Peg tube in the left upper quadrant. Lungs: Stable dense airspace consolidations and ground-glass opacities in both lungs. Stable cavitary lesions in the right mid lung and lung bases. Pleural spaces: Unremarkable. No pleural effusion. No pneumothorax. Heart/Mediastinum: Unremarkable. No cardiomegaly. Bones/joints: Unremarkable. XR/XR chest 1V portable [id number] IMPRESSION: 1. Stable severe pneumonia with cavitations/pulmonary abscesses.
--- NOTE | 2023-07-25 18:26 | P.CONIM_ITS ---
Providers/Reason For Consult 2 Consulting Physician/Specialty*: Dr. Russell Fonseca MD Otolaryngology, Head & Neck Surgery Reason for Consult*: Stand by for intubation Requesting Physician: Dr. Brennan Smiley MD Primary Care Provider: Swapnil Jerome MD History of Present Illness History of Present Illness Gautam Elise is a 37 year old male who has a h/o SCCA of the right mobile tongue who presents today with respiratory failure. I was consulted to stand by to assist with intubation as necessary. Review of Systems 2 General: Reports: 10 or more systems reviewed and unremarkable except in HPI and below Medications/Allergies Home Medications Medication Instructions Recorded Confirmed Last Taken Type alprazolam 0.5 mg tablet (Xanax) 0.5 mg PO BID PRN anxiety #60 tabs 10/28/22 07/25/23 Unknown Rx famotidine 40 mg/5 mL (8 mg/mL) 2.5 ml PO BID #150 mL 03/30/23 07/25/23 07/25/23 Rx oral suspension levothyroxine 75 mcg tablet 75 mcg PO QAM 05/21/23 07/25/23 07/24/23 History sodium chloride 0.9 % irrigation 1 irrig irrigation DAILY wet to 05/27/23 07/25/23 Unknown Rx solution dry dressing changes #500 mL cetuximab 100 mg/50 mL intravenous 400 mg (200 mL) IV Q7D 28 days 06/22/23 07/25/23 07/13/23 Rx solution cetuximab 100 mg/50 mL intravenous 650 mg (325 mL) IV ONCE 06/22/23 07/25/23 Unknown Rx solution cetuximab 200 mg/100 mL 400 mg (200 mL) IV Q7D 28 days 06/22/23 07/25/23 Unknown Rx intravenous solution docetaxel 20 mg/2 mL (10 mg/mL) 56 mg (5.6 mL) IV Q7D #18 mL 06/22/23 07/25/23 07/06/23 Rx intravenous solution lorazepam 1 mg tablet 0.5 - 1 mg (0.5 - 1 x 1 mg) PO Q6H 06/27/23 07/25/23 Unknown Rx PRN severe nausea #30 tabs ondansetron 4 mg disintegrating 4 mg PO Q6H PRN nausea and 06/27/23 07/25/23 07/25/23 08:00 Rx tablet vomiting #30 tabs prochlorperazine maleate 10 mg 10 mg PO Q6H PRN nausea and 06/27/23 07/25/23 Unknown Rx tablet (Compazine) vomiting #30 tabs doxycycline hyclate 100 mg tablet 100 mg PO BID #60 tabs 06/28/23 07/25/23 07/25/23 Rx nebulizer accessories ([place] #1 ea 07/06/23 07/25/23 Unknown Rx Choice Nebulizer Kit-Adult) fentanyl 25 mcg/hr transdermal 1 patch transdermal Q72H 30 days 07/13/23 07/25/23 07/22/23 Rx patch #10 ea due to be changed to oxycodone 20 mg tablet 20 mg PO Q4H PRN pain 30 days #180 07/13/23 07/25/23 07/25/23 08:00 Rx tabs Portable oxygen concentrator #1 ea 07/20/23 07/25/23 Unknown Rx continuous flow and supplies Real Food Blends See Rx Instructions .Route .COMPLEX 07/25/23 07/25/23 Unknown History acetylcysteine 200 mg/mL (20 %) See Rx Instructions .Route .COMPLEX 07/25/23 07/25/23 07/24/23 History solution dexamethasone 4 mg tablet See Rx Instructions .Route .COMPLEX 07/25/23 07/25/23 07/19/23 History levofloxacin 750 mg tablet See Rx Instructions .Route .COMPLEX 07/25/23 07/25/23 07/24/23 History tranexamic acid 650 mg tablet 650 mg PO DAILY 07/25/23 07/25/23 07/24/23 History Allergies Allergy/AdvReac Type Severity Reaction Status Date / Time No Known Allergies Allergy Verified 07/25/23 12:06 PFSH Acute 2 PFSH: Medical History Primary tongue squamous cell carcinoma Surgical History Port-A-Cath in place Hx of neck surgery (12/24/21) Bilateral neck exploration Status post partial glossectomy (12/23/21) Partial glossectomy with bilateral neck dissection, left ALT flap, and tracheostomy Status post insertion of percutaneous endoscopic gastrostomy (PEG) tube Family History Grandfather Throat cancer Cancer Family/Other Cancer Maternal aunt Denies family history of Diabetes CAD (coronary artery disease) Clotting disorder Dementia Hyperlipidemia Psychiatric illness Chronic kidney disease (CKD) Suicide Anesthesia complication Bleeding disorder Lung disease Hypertension Stroke Social History Smoking and tobacco/nicotine status: never used tobacco/nicotine Alcohol intake: never Household members: spouse and children Marital status: Number of children: 2 Current occupational status: employed Current occupation: construction Current gender identity: Male Vitals/I&O/Wt Last Vital Signs Temp 97.6 F 07/25/23 11:59 Pulse 107 H 07/25/23 17:40 Resp 18 07/25/23 17:35 BP 123/92 07/25/23 17:40 Pulse Ox 81 L 07/25/23 17:40 O2 Del Method Non-Rebreather 07/25/23 13:46 O2 Flow Rate 15 07/25/23 13:46 FiO2 100 07/25/23 14:18 07/25/23 07/25/23 07/25/23 06:59 14:59 22:59 Intake Total 249.8 / 249.8 1250 / 1499.8 Balance 249.8 / 249.8 1250 / 1499.8 Weight last 48 hrs Weight 45.359 kg Physical Exam 2 Const: GENERAL APPEARANCE: anxious and lethargic NUTRITIONAL APPEARANCE: c achectic ORIENTATION/CONSCIOUSNESS: Yes lethargic HENMT: COMMON NORMALS: normocephalic and atraumatic HEAD & SCALP: n ormocephalic and atraumatic FACE & SINUS: normal facial exam Eye: COMMON NORMALS: EOMs intact bilaterally and no scleral icterus Neck/C-Spine: COMMON NORMALS: full ROM and no lymphadenopathy GENERAL: Yes other (There is a large open wound of the right neck.) Neuro: SENSORIUM/ORIENTATION: Yes lethargic Data 07/25/23 12:48 07/25/23 12:48 A&P Assessment and plan (1) Cancer of lateral margin of anterior two-thirds of tongue: (2) Airway intubation performed without difficulty: Impression: The patient was intubated without difficulty by Dr. Smiley while I stood by for assistance. Plan: As per Dr. Smiley Consult Attestations 2 Medical Necessity Statement: I was consulted by Dr. Smiley to stand by to assist with the airway as needed. Procedures Procedure Narrative I stood by while Dr. Smiley intubated Mr. Elise without difficulty. Coding Level of Care Code Acute Code for Chg Fwd Diagnoses Cancer of lateral margin of anterior two-thirds of tongue C02.3 Airway intubation performed without difficulty Z78.9
[2023-07-25] MEDS: propofol 1,000 MG/100 ML INJ 1.4 MG IV (18:37)
[2023-07-25] MEDS: fentaNYL 1,000 MCG/100 ML BAG 7.5 MCG IV (18:38)
[2023-07-25] MEDS: clindamycin 600 MG/50 ML PREMIX 100 MG IV (18:42)
[2023-07-25 18:44] LABS: ABG PCO2 48.8 mmHg (35-45); ABG PH Result 7.34 (7.35-7.45); Alveolar-Arterial Oxygen Gradi 77.6 mmHg (5-10); Arterial Blood Gas Hematocrit 32.3 % (42-52); Base Excess ABG -0.1 mmol/L (-2.0-2.0); Blood Gas Allen Test Pos; Blood Gas Operator Identificat WALCI; Blood Gas Sample Site Radial, right; Blood Gas Sample Type Arterial; Blood Gas Tidal Volume 0.45; Carboxyhemoglobin 1.2 %THgb (0.4-20.1); HCO3 ABG 26.1 mmol/L (22-26); HGB O2 Sat 79.8 % (95-100); Ionized Calcium Level - ABG 1.1 mmol/L (1.1-1.4); Methemoglobin 0.7 % (0.4-1.5); Oxygen Device VENT; Oxygen Saturation ABG 81.3; PO2 ABG 47.9 mmHg (80.0-100.0); PO2 FiO2 Ratio Arterial Blood 0; Potassium Level - ABG 2.9 mmol/L (3.5-5.0); Total Hemoglobin 10.5 g/dL (14-18)
[2023-07-25] MEDS: norepinephrine 4 MG/250 ML BAG 30 MG IV (18:59)
--- NOTE | 2023-07-25 19:25 | P.CONIM_ITS ---
Providers/Reason For Consult 2 Consulting Physician/Specialty*: Hospitalist Reason for Consult*: Respiratory distress Primary Care Provider: Swapnil Jerome MD History of Present Illness History of Present Illness Gautam Elise is a 37 year old male follows up with Dr. 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 is at the bedside. is stating that for last 7 to 10 days he has been getting more short of breath with a productive cough, they have not noticed any fever, vomiting or diarrhea. Patient never complained of any chest pain. 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 Patient was intubated in the ER for respiratory distress he was intubated in presence of ENT surgeon by the ER physician Dr. Cortez, intubation was done without any difficulty Patient is still hypoxic on recent ABG however I do believe this is a venous sample considering same level of pCO2 and pO2 I requested respiratory therapist to get another ABG currently patient is on FiO2 100% with PEEP of 8 which we have increased to 10 Patient had received 2 L of septic bolus, receiving vancomycin and Zosyn and clindamycin, currently on propofol Intubated and sedated, MAP is around 70, we can start Levophed to keep MAP 65- 75mmhg CT scan of chest showing lung abscess, worsening pneumonia, right lower lobe PE Pros and cons of starting heparin at this point discussed with the considering his carotid arterial bleed and use of Tranxene Jany acid, has decided not to anticoagulate, is stating that Gautam wanted to fight his cancer, I frankly discussed with the family that he is at risk of sudden cardiac arrest due to worsening respiratory, persistent hypoxia despite intubation, worsening pneumonia, lung abscess and a PE I discussed this case with Dr. Justus Jerome is saying that he absolutely has strong contraindication to be on any kind of blood thinner anticoagulating agent because he will bleed to from carotid vessel is well aware and agree with this This patient has advanced head and neck cancer with very poor prognosis, If anything he may benefit from an IVC filter at a tertiary center Dr. Jerome has recommended palliative/hospice care for this patient Review of Systems 2 General: Reports: ROS unobtainable due to endotracheal tube Medications/Allergies Home Medications Medication Instructions Recorded Confirmed Last Taken Type alprazolam 0.5 mg tablet (Xanax) 0.5 mg PO BID PRN anxiety #60 tabs 10/28/22 07/25/23 Unknown Rx famotidine 40 mg/5 mL (8 mg/mL) 2.5 ml PO BID #150 mL 03/30/23 07/25/23 07/25/23 Rx oral suspension levothyroxine 75 mcg tablet 75 mcg PO QAM 05/21/23 07/25/23 07/24/23 History sodium chloride 0.9 % irrigation 1 irrig irrigation DAILY wet to 05/27/23 07/25/23 Unknown Rx solution dry dressing changes #500 mL cetuximab 100 mg/50 mL intravenous 400 mg (200 mL) IV Q7D 28 days 06/22/23 07/25/23 07/13/23 Rx solution cetuximab 100 mg/50 mL intravenous 650 mg (325 mL) IV ONCE 06/22/23 07/25/23 Unknown Rx solution cetuximab 200 mg/100 mL 400 mg (200 mL) IV Q7D 28 days 06/22/23 07/25/23 Unknown Rx intravenous solution docetaxel 20 mg/2 mL (10 mg/mL) 56 mg (5.6 mL) IV Q7D #18 mL 06/22/23 07/25/23 07/06/23 Rx intravenous solution lorazepam 1 mg tablet 0.5 - 1 mg (0.5 - 1 x 1 mg) PO Q6H 06/27/23 07/25/23 Unknown Rx PRN severe nausea #30 tabs ondansetron 4 mg disintegrating 4 mg PO Q6H PRN nausea and 06/27/23 07/25/23 07/25/23 08:00 Rx tablet vomiting #30 tabs prochlorperazine maleate 10 mg 10 mg PO Q6H PRN nausea and 06/27/23 07/25/23 Unknown Rx tablet (Compazine) vomiting #30 tabs doxycycline hyclate 100 mg tablet 100 mg PO BID #60 tabs 06/28/23 07/25/23 07/25/23 Rx nebulizer accessories ([place] #1 ea 07/06/23 07/25/23 Unknown Rx Choice Nebulizer Kit-Adult) fentanyl 25 mcg/hr transdermal 1 patch transdermal Q72H 30 days 07/13/23 07/25/23 07/22/23 Rx patch #10 ea due to be changed to oxycodone 20 mg tablet 20 mg PO Q4H PRN pain 30 days #180 07/13/23 07/25/23 07/25/23 08:00 Rx tabs Portable oxygen concentrator #1 ea 07/20/23 07/25/23 Unknown Rx continuous flow and supplies Real Food Blends See Rx Instructions .Route .COMPLEX 07/25/23 07/25/23 Unknown History acetylcysteine 200 mg/mL (20 %) See Rx Instructions .Route .COMPLEX 07/25/23 07/25/23 07/24/23 History solution dexamethasone 4 mg tablet See Rx Instructions .Route .COMPLEX 07/25/23 07/25/23 07/19/23 History levofloxacin 750 mg tablet See Rx Instructions .Route .COMPLEX 07/25/23 07/25/23 07/24/23 History tranexamic acid 650 mg tablet 650 mg PO DAILY 07/25/23 07/25/23 07/24/23 History Allergies Allergy/AdvReac Type Severity Reaction Status Date / Time No Known Allergies Allergy Verified 07/25/23 12:06 Current Medications Generic Name Dose Route Start Last Admin Trade Name Freq PRN Reason Stop Dose Admin Fentanyl 1,000 mcg in 100 mls @ 0 mls/hr 07/25/23 18:00 07/25/23 18:38 Sublimaze IV 75 mcg/hr .Q0M NEFTALI 7.5 mls/hr Administration Protocol Per Protocol Propofol 1,000 mg in 100 mls @ 0 mls/hr 07/25/23 18:00 07/25/23 18:37 Diprivan IV 5.14 mcg/kg/min .Q0M NEFTALI 1.4 mls/hr Administration Protocol Per Protocol Clindamycin HCl/Dextrose 600 mg in 50 mls @ 100 mls/hr 07/25/23 18:15 07/25/23 19:13 Cleocin IV Infused Q12H NEFTALI Infusion Protocol norepinephrine 4 mg in 250 mls @ 0 mls/hr 07/25/23 18:45 07/25/23 18:59 Levophed IV 8 mcg/min .Q0M NEFTALI 30 mls/hr Administration Protocol Per Protocol PFSH Acute 2 PFSH: Medical History Primary tongue squamous cell carcinoma Surgical History Port-A-Cath in place Hx of neck surgery (12/24/21) Bilateral neck exploration Status post partial glossectomy (12/23/21) Partial glossectomy with bilateral neck dissection, left ALT flap, and tracheostomy Status post insertion of percutaneous endoscopic gastrostomy (PEG) tube Family History Grandfather Throat cancer Cancer Family/Other Cancer Maternal aunt Denies family history of Diabetes CAD (coronary artery disease) Clotting disorder Dementia Hyperlipidemia Psychiatric illness Chronic kidney disease (CKD) Suicide Anesthesia complication Bleeding disorder Lung disease Hypertension Stroke Social History Smoking and tobacco/nicotine status: never used tobacco/nicotine Alcohol intake: never Household members: spouse and children Marital status: Number of children: 2 Current occupational status: employed Current occupation: construction Current gender identity: Male Vitals/I&O/Wt Last Vital Signs Temp 97.6 F 07/25/23 11:59 Pulse 103 H 07/25/23 19:00 Resp 16 07/25/23 18:46 BP 101/69 07/25/23 19:00 Pulse Ox 88 L 07/25/23 19:00 O2 Del Method Non-Rebreather 07/25/23 13:46 O2 Flow Rate 15 07/25/23 13:46 FiO2 100 07/25/23 18:46 07/25/23 07/25/23 07/25/23 06:59 14:59 22:59 Intake Total 249.8 / 249.8 1300 / 1549.8 Balance 249.8 / 249.8 1300 / 1549.8 Weight last 48 hrs Weight 45.359 kg Physical Exam 2 Narrative: cachectic frail young male Patient's neck is covered with dressing no active bleeding with patient is intubated and sedated FiO2 100% PEEP 10 Currently on antibiotics, IV fluids and Levophed Patient is tender to bone at the bedside Bilateral assisted breath sounds with rhonchi and crackles Abdomen soft, has PEG tube in place Neuro exam limited Data 07/25/23 12:48 07/25/23 12:48 A&P Assessment and plan (1) Port-A-Cath in place: (2) Lung abscess: (3) Pulmonary embolism: (4) Respiratory failure: (5) Antineoplastic chemotherapy induced anemia: (6) Secondary lung cancer: (7) Cancer of lateral margin of anterior two-thirds of tongue: (8) History of chemotherapy: (9) History of radiation therapy: (10) Chemotherapy management, encounter for: (11) Pneumonia: (12) Airway intubation performed without difficulty: (13) Poor prognosis: Plan Acute respiratory failure requiring mechanical ventilation Respiratory distress currently intubated and sedated Lung abscess with pulmonary embolism Patient has absolute contraindication to be on any kind of blood thinner He has history of carotid bleed Case discussed with the she is okay with withholding anticoagulating agent Dr. Jerome recommended hospice care Case discussed with Dr. 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 We do not have ID service in house At this point recommending tertiary level of care/higher level of care considering the severity of sickness and advanced-stage head and neck cancer Holding PEG tube feeds for now Will request [place] catheter Consult Attestations 2 Medical Necessity Statement: Recommending transfer to tertiary center Coding Level of Care Code Critical Care >/= 30 minutes Critical care time (in minutes): 60 The high probability of a clinically significant, sudden or life threatening deterioration, as referenced in this documentation, required my full and direct attention, intervention and personal management. The critical care time shown is in addition to time spent performing any reported separately billable procedures and includes the following: [x] Data and vital sign review and interpretation [x ] Patient assessment, examination and intervention [x] Medication orders and management [x] Patient/Family updates as able [x] Care Coordination and Documentation. Diagnoses Port-A-Cath in place Z95.828 Lung abscess J85.2 Pulmonary embolism I26.99 Respiratory failure J96.90 Antineoplastic chemotherapy induced anemia D64.81; T45.1X5A Secondary lung cancer C78.00 Cancer of lateral margin of anterior two-thirds of tongue C02.3 History of chemotherapy Z92.21 History of radiation therapy Z92.3 Chemotherapy management, encounter for Z51.11 Pneumonia J18.9 Airway intubation performed without difficulty Z78.9 Poor prognosis Z78.9
[2023-07-25 19:42] LABS: ABG PCO2 51.6 mmHg (35-45); ABG PH Result 7.31 (7.35-7.45); Alveolar-Arterial Oxygen Gradi 75.2 mmHg (5-10); Arterial Blood Gas Hematocrit 32.6 % (42-52); Base Excess ABG -0.5 mmol/L (-2.0-2.0); Blood Gas Sample Site Brachial, right; Blood Gas Sample Type Arterial; Blood Gas Tidal Volume 0.45; Carboxyhemoglobin 0.6 %THgb (0.4-20.1); HCO3 ABG 26.2 mmol/L (22-26); HGB O2 Sat 89.3 % (95-100); Ionized Calcium Level - ABG 1.1 mmol/L (1.1-1.4); Methemoglobin 0.6 % (0.4-1.5); Oxygen Device VENT; Oxygen Saturation ABG 90.4; PO2 FiO2 Ratio Arterial Blood 0; Potassium Level - ABG 2.9 mmol/L (3.5-5.0); Total Hemoglobin 10.6 g/dL (14-18)
[2023-07-25] MEDS: sodium chloride 0.9% 1,000 ML 75 ML IV (20:28)
[2023-07-25 20:59] LABS: Procalcitonin 1.65 ng/mL (0-0.5)
[2023-07-25] MEDS: lidocaine 1% 5 ML in potassium chloride premix 100 ML 25 ML IV (21:17)
[2023-07-25 21:37] LABS: ABG PCO2 45.7 mmHg (35-45); ABG PH Result 7.37 (7.35-7.45); Arterial Blood Gas Hematocrit 32.2 % (42-52); Base Excess ABG 0.6 mmol/L (-2.0-2.0); Blood Gas Sample Site Brachial, left; Blood Gas Sample Type Arterial; Blood Gas Tidal Volume 0.45; HCO3 ABG 26.3 mmol/L (22-26); Oxygen Device VENT; PO2 ABG 63.9 mmHg (80.0-100.0); PO2 FiO2 Ratio Arterial Blood 0
[2023-07-25 22:06] LABS: Influenza A by IFA negative (Negative); Influenza B by IFA negative (Negative)
[2023-07-26] VITALS (44 sets, daily range): BP systolic 88–107; BP diastolic 61–70; PULSE 91–95; RESP 18; O2SAT 94–96
[2023-07-26] MEDS: norepinephrine 4 MG/250 ML BAG 60 MG IV (00:57)
[2023-07-26] MEDS: piperacillin-tazobactam 3.375 GM in sodium chloride 0.9% (plus) 50 ML IV (00:59)
[2023-07-26] MEDS: vancomycin 1,000 MG in sodium chloride 0.9% 250 ML 250 MG IV (02:48)
[2023-07-26] MEDS: fentaNYL 1,000 MCG/100 ML BAG 12.5 MCG IV (03:18)
--- NOTE | 2023-07-26 04:02 | PC.NURSE ---
1 bottle of propofol dispensed with EMS to use during transport per ED physician
--- NOTE | 2023-07-26 18:06 | USCV_ITS ---
Gautam Elise Age: 37 Gender: M : 1985 Exam Date: 07/26/2023 01:13 Ordering Phys: Lali Barnard MD Technologist: PEPE Exam Location: [facility] [place] Indication: SOB, hx throat CA, lung CA. Patient on ventilator in ER-10 BP: 94 / 65 HR: 92 Rhythm: Sinus Technical Quality: Adequate MEASUREMENTS (Male / Female) Normal Values 2D ECHO LV Diastolic Diameter PLAX 3.8 cm 4.2 - 5.9 / 3.9 - 5.3 cm LV Systolic Diameter PLAX 2.6 cm IVS Diastolic Thickness 0.9 cm 0.6 - 1.0 / 0.6 - 0.9 cm IVS Systolic Thickness 1.4 cm LVPW Diastolic Thickness 1.1 cm 0.6 - 1.0 / 0.6 - 0.9 cm LVPW Systolic Thickness 1.1 cm LVOT Diameter 1.4 cm LV Ejection Fraction 2D Teich 61.6 % LV Ejection Fraction MOD 2C 67.6 % LV Ejection Fraction 2C AL 69.0 % LA Diameter 2.9 cm LA Width 2.6 cm LA Height 3.5 cm RA Width 3.3 cm RA Height 3.1 cm Aorta at Sinotubular Diameter 2.9 cm IVC Diameter 1.9 cm M-MODE Aortic Annulus Diameter 3.1 cm LA Ao Ratio MM 0.9 MV E Point Septal Separation 0.3 cm DOPPLER AV Peak Velocity 81.0 cm/s LVOT Peak Velocity 70.0 cm/s AV Area Cont Eq vti 1.0 cm squared AV Area Cont Eq pk 1.3 cm squared MV Peak Velocity 82.0 cm/s MV Area PHT 3.5 cm squared Mitral E to A Ratio 1.2 MV E' Velocity 30.5 cm/s Mitral E to MV E' Ratio 5.2 Mitral E to LV E' Lateral Ratio 4.2 Mitral E to LV E' Septal Ratio 6.9 TR Peak Velocity 246.7 cm/s TR Peak Gradient 24.4 mmHg TV Peak E Velocity 47.0 cm/s Right Atrial Pressure 5.0 mmHg Pulmonary Artery Systolic Pressu 29.4 mmHg PV Peak Velocity 85.0 cm/s RV Acceleration Time 0.1 s RV Ejection Time 0.4 s RV AcT/ET 0.3 FINDINGS Left Ventricle Normal left ventricular size and systolic function, EF 64 %. No regional wall motion abnormalities. Right Ventricle Mildly dilated Right Atrium Mildly dilated Left Atrium The left atrium is normal in size. Mitral Valve Trace mitral valve regurgitation. Aortic Valve Structurally normal aortic valve without significant sclerosis or stenosis. There is no aortic regurgitation. Tricuspid Valve Moderate tricuspid valve regurgitation. Pulmonic Valve Trace pulmonary valve regurgitation. Pericardium Small echo-free space, anteriorly and posteriorly suggesting pericardial effusion Aorta Normal ascending aorta dimension. IVC Normal IVC dimension with <50% respiratory change of the inferior vena cava. CONCLUSIONS Normal left ventricular size and systolic function, EF 64 %. No regional wall otion abnormalities. Mildly dilated right atrium and right ventricle Moderate tricuspid valve regurgitation. Estimated pulmonary artery peak systolic pressure 29 mmHg Possible small pericardial effusion Trace mitral valve regurgitation. No similar previous studies are available for comparison Dr Shannon Bishop MD FAC (Electronically Signed) Final Date: 26 July 2023 09:16 S
== END 2023-07-26 03:40 | disposition short-term general hospital (02) ==
PROVIDERS: Internal Medicine; Emergency Provider Emergency Medicine; PCP Internal Medicine Medical Oncology
DX: J18.9 Pneumonia, unspecified organism (principal); J96.01 Acute respiratory failure with hypoxia; Z11.52 Encounter for screening for COVID-19; I26.99 Other pulmonary embolism without acute cor pulmonale; J90 Pleural effusion, not elsewhere classified; Z85.810 Personal history of malignant neoplasm of tongue; Z85.118 Personal history of other malignant neoplasm of bronchus and lung
CPT/HCPCS: 31500; 36415; 36573; 36600; 51702; 71045; 71275; 80051; 80053; 82330; 82803; 82805; 83605; 83880; 84145; 85025; 85378; 85610; 86403; 87040; 87070; 87077; 87086; 87186; 87205; 87449; 87635; 87804; 93005; 93306; 94002; 94660; 94799; 96365; 96366; 96367; 96375; 99291; 99292; C1751; J2270; J2405; J2543; J2704; J3010; J3370; J3480; J3490; J7030; J7050; Q9967